=== PATIENT | female | born 1960 | race Two or more races ===

== ENCOUNTER 2020-03-05 09:26 | Outpatient (REF) | payer OTHER, SELFPAY ==
[2020-03-05 10:16] LABS: MANUAL DIFF FLAG NO
[2020-03-05 10:39] LABS: Basophils Percent Auto 0.6 % (0-2); Eosinophils Absolute Auto 0.2 X10*3/uL (0.0-0.4); Eosinophils Percent Auto 3.3 % (0-4); Hematocrit 38.4 % (37-47); Hemoglobin 12.8 g/dl (12.0-16.0); Imm Gran Abs Auto 0.02 X10*3/uL (0.00-0.03); Imm Gran Pct Auto 0.3 % (0.0-0.4); Lymphocytes Absolute Auto 2.4 X10*3/uL (1.2-4.9); Lymphocytes Percent Auto 37.9 % (20-40); Mean Corpuscular HGB Conc 33.3 g/dl (31.0-35.0); Mean Corpuscular Hemoglobin 28.6 pg (27.0-33.0); Mean Corpuscular Volume 85.9 fL (80-98); Mean Platelet Volume 10.8 fL (9.4-12.3); Monocytes Absolute Auto 0.5 X10*3/uL (0.1-1.2); Monocytes Percent Auto 7.1 % (2-11); Neutrophils Absolute Auto 3.2 X10*3/uL (2.0-8.3); Neutrophils Percent Auto 50.8 % (45-73); Platelet Count 241 X10*3/uL (160-400); Red Blood Count 4.47 X10*6/uL (4.20-5.50); Red Cell Distribution Width 11.9 % (11.0-16.0); White Blood Count 6.3 X10*3/uL (4.8-10.8)
[2020-03-05 10:54] LABS: Alanine Aminotransferase 21 U/L (0-31); Albumin Level 4.3 g/dL (3.5-5.0); Alkaline Phosphatase 98 U/L (39-117); Anion Gap 11 (12-20); Aspartate Amino Transferase 15 U/L (5-31); Bilirubin Total 0.5 mg/dL (0.0-1.0); Blood Urea Nitrogen 18 mg/dL (9-16); Calcium 9.3 mg/dL (8.4-10.2); Carbon Dioxide 29 mmol/L (22-29); Chloride 103 mmol/L (96-108); Cholesterol 196 mg/dL; Estimated Glomerular Filt Rate > 60; Glucose Random 212 mg/dL (60-115); HDL Cholesterol 43 mg/dL; LDL Cholesterol Calculated 114 mg/dl; Potassium 4.5 mmol/l (3.3-5.1); Sodium 138 mmol/L (135-145); Total Protein 7.9 g/dL (6.5-8.0); Triglycerides 199 mg/dL
[2020-03-05 11:07] LABS: Creatinine Urine 40.19 mg/dL; Microalbumin Urine < 5.0 mg/L
[2020-03-05 11:19] LABS: Vitamin D 25-OH Total 40.6 ng/mL (>30)
[2020-03-05 11:27] LABS: Folate 10.1 ng/mL (> or = 4.0); Vitamin B12 481 pg/mL (200-900)
== END 2020-03-05 09:27 | disposition home or self-care (01) ==
LOC: HO.LAB 09:26
PROVIDERS: PCP Internal Medicine; Visit Provider Internal Medicine
DX: E78.00 Pure hypercholesterolemia, unspecified (principal); E11.9 Type 2 diabetes mellitus without complications; D51.0 Vitamin B12 deficiency anemia due to intrinsic factor deficiency; E55.9 Vitamin D deficiency, unspecified
CPT/HCPCS: 36415; 80053; 80061; 82043; 82306; 82607; 82746; 85025

== ENCOUNTER 2020-04-15 12:40 | Outpatient (REF) | payer OTHER, SELFPAY | END 2020-04-15 12:41 | disposition home or self-care (01) | LOC: HO.LAB 12:40 | PROVIDERS: Visit Provider Internal Medicine | DX: Z20.828 Contact with and (suspected) exposure to other viral communicable diseases (principal) | CPT/HCPCS: C9803; U0003 ==

== ENCOUNTER 2020-04-25 12:25 | Emergency (ER) | payer OTHER, SELFPAY ==
--- NOTE | 2020-04-25 14:05 | XR_ITS ---
EXAMINATION: XR CHEST CLINICAL INFORMATION: Pain COMPARISON: None TECHNIQUE: Frontal view of the chest was obtained. FINDINGS: Lungs are well expanded. Linear opacity of plate like atelectasis in the inferior lingula. Minimal linear opacity of focal scarring or atelectasis in the region of the right lateral costophrenic sulcus. No pulmonary mass or consolidation. No edema or pleural effusion. No pneumothorax. Cardiac silhouette has normal size and contour. The visualized bones are intact. Small, 0.2 cm focus of calcium deposition in the region of the infraspinatus tendon of the left rotator cuff. XR/XR chest 1V IMPRESSION: * Mild atelectasis at lung bases. * No evidence of congestive heart failure.
--- NOTE | 2020-04-25 14:05 | ECG_ITS ---
Test Reason : CHEST PRESSURE Blood Pressure : / mmHG Vent. Rate : 074 BPM Atrial Rate : 074 BPM P-R Int : 154 ms QRS Dur : 064 ms QT Int : 390 ms P-R-T Axes : 034 058 032 degrees QTc Int : 432 ms Artifact in tracing Normal sinus rhythm Normal ECG No significant changes when compared with the previous EKG of 04 mar 2017 Referred By: Gatito Phipps Electronically Signed By:SLAVA OLIVO
[2020-04-25 14:08] VITALS: BP 136/86; PULSE 92; RESP 18; TEMP 36.7; O2SAT 97; BMI 29.7
--- NOTE | 2020-04-25 14:47 | ED_ITS ---
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 She otherwise denies any chest pain or shortness of breath. Denies any fever or chills. Denies any abdominal pain, nausea vomiting diarrhea. Pain is described as mid to upper back and achy like. Exacerbating factors include movement/palpation relieving factors include resting. MD elicited complaint: back pain Pertinent past history: prior back pain Timing: intermittent Severity: mild Similar Symptoms Previously: Yes Quality: aching Radiation: none Exacerbating factors: movement Relieving factors: immobilization Associated symptoms: denies other symptoms Work related injury: No Related Data Previous Rx's Medication Instructions Recorded lidocaine 1 patch TOPICAL Q24H PRN #10 ea 04/25/20 naproxen 500 mg PO BID PRN #14 tab 04/25/20 Allergies Allergy/AdvReac Type Severity Reaction Status Date / Time No Known Allergies Allergy Unverified 02/01/20 18:44 [No Known Allergies*] Review of Systems Review of Systems: Constitutional: No Weight loss, No Fever, No Chills, No Night Sweats, No Fatigue, No Malaise ENT/Mouth: No Hearing loss, No Ear Pain, No Nasal Congestion, No Sinus Pain, No Hoarseness, No sore throat, No Rhinorrhea, No Swallowing Difficulty Eyes: No Eye Pain, No Swelling, No Redness, No Foreign Body, No Discharge, No Vision Changes Cardiovascular: No Chest Pain, No SOB, No Dyspnea on Exertion, No Orthopnea, No Edema, No Palpitations Respiratory: No Cough, No Sputum, No Wheezing, No Smoke Exposure, No Dyspnea Gastrointestinal: No Nausea, No Vomiting, No Diarrhea, No Constipation, No abdominal Pain, No Hematochezia, No Melena Genitourinary: no irregular bleeding, No Dysuria, No Urinary Frequency, No Hematuria, No Urinary Incontinence, No Urgency, No Flank Pain, No Urinary Flow Changes, No Hesitancy Musculoskeletal: No joint pain, + Myalgias as noted, No Joint Swelling Skin: No Skin Lesions, No rash Neuro: No Weakness, No Numbness, No Paresthesias, No Loss of Consciousness, No Dizziness, No Headache Psych: No Social Issues Heme/Lymph: No Bruising, No Bleeding,No Lymphadenopathy Endocrine: No Polyuria, No Polydipsia, No Temperature Intolerance Yes all other systems are reviewed and are negative FOR[facility]LY [facility] Past Medical History Medical History (Updated 04/25/20 @ 14:48 by Gatito Phipps NP) Diabetes Hypertension Surgical History (Updated 04/25/20 @ 14:13 by Dixie Shaw) H/O tubal ligation H/O: hysterectomy History of appendectomy Social History Social History Alcohol intake: never Smoking Status: Never smoker Use of substances other than those prescribed or required for medical reasons: No Advance Directives: No Advance Directives Information Provided: No Physical Exam Vital Signs: Vital Signs: Last Vital Signs Temp 98.0 F 04/25/20 14:08 Pulse 92 04/25/20 14:08 Resp 18 04/25/20 14:08 BP 136/86 04/25/20 14:08 Pulse Ox 97 04/25/20 14:08 Body Mass Index 29.7 Reviewed Const: General: cooperative and healthy appearing; No acute distress or intoxicated appearing Nutritional Appearance: average body habitus Toni entation/consciousness: patient oriented x3 HENMT: Head: Yes normal to inspection Ears: hearing grossly normal bilaterally Eyes: General: appearance normal, both eyes and all related structures Visual Maloney: normal visual maloney by confrontation Neck: Neck: Yes normal visual inspection, No positive Brudzinski's sign, No positive Kernig's sign and No tender Thyroid: Thyroid normal Chest: Chest palpation & inspection: normal inspection of the chest Resp: Effort & Inspection: normal respiratory effort Cardio: Jugular venous distension: no JVD Rhythm: regular rhythm Heart sounds: S1 normal heart sound present and S2 normal heart sound present GI: Inspection: Yes normal to inspection Palpation (GI): Soft to palpation Percussion: Yes normal to percussion Auscultation: normal bowel sounds : General: Yes no CVA tenderness Back/Spine/Pelvis: Back: no CVA tenderness Cervical Spine: No step off deformity Thoracic/Lumbar Spine: straight leg raise negative bilaterally and paraspinal muscle tenderness Skin: General skin exam: no rashes or lesions noted Neuro: General: patient oriented x3 Extrem: General: Yes normal to inspection MDM - Back Pain/Injury MDM Narrative Medical decision making narrative: AP 5-year-old female with above history presenting with myalgia type pains secondary to COVID-19 exam overall stable. Chest x-ray negative for acute findings. She has no upper respiratory symptoms pain more consistent with again myalgias/musculoskeletal in etiology. No low back pain red flags. No GI symptoms. No chest pain or shortness of breath. He medically stable. Pulse ox 100% on room air heart rate in the 70s suspicious for cardiopulmonary cardiology is very low. I do not suspect ACS/pulmonary embolism/infectious pathology. Differential Diagnosis Differential diagnosis: Likely strain of lumbar region; Unlikely lumbar radiculopathy, sciatica, renal colic, pyelonephritis, thoracic back pain, AAA and discitis Medical Records Attestation: I reviewed the patient's medical records. Lab Data Attestation: I reviewed the patient's lab results. Imaging Data Chest x-ray: Radiologist's impression: Kailey Gomes 59 F 1960 [place] [id number] XRay Report Signed Patient: Nisa GomesR#: [id number] : 1960Acct:[id number] Age/Sex: 59 / FADM Date: 04/25/20 Loc: .ED Attending Dr: Ordering Physician: Gatito Phipps NP Date of Service: 04/25/20 Procedure(s): XR chest 1V Accession Number(s): [id number] cc: Gatito Phipps NP~ EXAMINATION: XR CHEST CLINICAL INFORMATION: Pain COMPARISON: None TECHNIQUE: Frontal view of the chest was obtained. FINDINGS: Lungs are well expanded. Linear opacity of plate like atelectasis in the inferior lingula. Minimal linear opacity of focal scarring or atelectasis in the region of the right lateral costophrenic sulcus. No pulmonary mass or consolidation. No edema or pleural effusion. No pneumothorax. Cardiac silhouette has normal size and contour. The visualized bones are intact. Small, 0.2 cm focus of calcium deposition in the region of the infraspinatus tendon of the left rotator cuff. XR/XR chest 1V IMPRESSION: * Mild atelectasis at lung bases. * No evidence of congestive heart failure. Dictated By:JERED FARRAR MD Signed By:<Electronically signed by JERED FARRAR MD in OV>04/25/20 1427 DD/ 1405 TD/TT: Emergency Planning And Response Manager: ECG Data Interpretation: Normal sinus rhythm Rate 74 P are interval within normal limits No acute ST segment changes Discharge Plan Discharge Clinical Impression: Back pain Qualifiers: Back pain location: thoracic back pain Chronicity: acute Back pain laterality: bilateral Qualified Code(s): M54.6 - Pain in thoracic spine Patient Disposition: Home, Self-Care Instructions: Back Pain (ED) Additional Instructions: Warm compresses Gentle stretching Medication prescribed Return follow-up instructions provided Thank you Prescriptions: New lidocaine 4 % adhesive patch,medicated 1 patch topical Q24H PRN (Reason: pain) Qty: 10 RF: 0 naproxen 500 mg tablet 500 mg PO BID PRN (Reason: pain) Qty: 14 RF: 0 Referrals: Meg Penn MD [Primary Care Provider] - 1 week (As needed)
== END 2020-04-25 15:15 | disposition home or self-care (01) ==
PROVIDERS: Emergency Provider Emergency Medicine; PCP Internal Medicine
DX: M54.6 Pain in thoracic spine (principal); Z20.828 Contact with and (suspected) exposure to other viral communicable diseases; E11.9 Type 2 diabetes mellitus without complications; I10 Essential (primary) hypertension
CPT/HCPCS: 71045; 93005; 99284

== ENCOUNTER → 2020-06-11 10:52 | Outpatient (BNVA) | payer OTHER, SELFPAY | PROVIDERS: PCP Internal Medicine; Visit Provider Internal Medicine Endocrinology, Diabetes & Metabolism | DX: E11.65 Type 2 diabetes mellitus with hyperglycemia (principal); E11.42 Type 2 diabetes mellitus with diabetic polyneuropathy; E78.5 Hyperlipidemia, unspecified; Z79.4 Long term (current) use of insulin; D51.0 Vitamin B12 deficiency anemia due to intrinsic factor deficiency; I10 Essential (primary) hypertension; E55.9 Vitamin D deficiency, unspecified | CPT/HCPCS: 82947; 99212 ==

== ENCOUNTER 2020-07-31 09:40 | Outpatient (REF) | payer OTHER, SELFPAY ==
--- NOTE | ~2020-07-31 | MM_ITS ---
EXAMINATION: MM SCREENING DIGITAL BREAST TOMOSYNTHESIS, BILATERAL CLINICAL INFORMATION: Screening. Asymptomatic. Reduction mammoplasty 2015. Family history breast cancer, sister. Left ultrasound guided core biopsy 04/13/2018 (benign breast tissue with fragments of macrocysts, mild chronic inflammation, ectatic ducts and granular necrotic debris). The lifetime risk of breast cancer based on the Tyrer-Cuzick Model is 15%. COMPARISON: Mammography: 06/19/2019, 11/07/2018, 04/13/2018, 04/05/2018, 10/04/2017, 08/26/2017 TECHNIQUE: Digital breast tomosynthesis is performed in both the craniocaudal and mediolateral oblique views along with computer-aided detection (CAD). Synthesized 2D images are generated from the tomosynthesis. FINDINGS: There are scattered areas of fibroglandular density (ACR BI-RADS breast composition Category b). Parenchymal pattern is similar to prior exam. There is no interval mass or architectural abnormality or developing density. There is biopsy clip marker again noted left breast mid upper outer quadrant. Nodularity in 2018 is decreased. The breasts show no abnormal calcifications. The axilla and skin contours are unremarkable. MM/MM tomosynthesis screening BI IMPRESSION: No mammographic evidence of malignancy. ASSESSMENT: BI-RADS 2: Benign RECOMMENDATION: Routine annual mammography screening. This patient's information was entered into a reminder system with a target due date for their next mammogram.
== END 2020-07-31 09:41 | disposition home or self-care (01) ==
LOC: HO.MAMMO 09:40
PROVIDERS: PCP Internal Medicine; Visit Provider Internal Medicine
DX: Z12.31 Encounter for screening mammogram for malignant neoplasm of breast (principal)
CPT/HCPCS: 77063; 77067

== ENCOUNTER → 2020-09-10 11:20 | Outpatient (BNVA) | payer OTHER, SELFPAY | PROVIDERS: PCP Internal Medicine; Visit Provider Internal Medicine Endocrinology, Diabetes & Metabolism | DX: E11.65 Type 2 diabetes mellitus with hyperglycemia (principal); E11.42 Type 2 diabetes mellitus with diabetic polyneuropathy; Z79.4 Long term (current) use of insulin; E78.5 Hyperlipidemia, unspecified; D51.0 Vitamin B12 deficiency anemia due to intrinsic factor deficiency; I10 Essential (primary) hypertension; E55.9 Vitamin D deficiency, unspecified | CPT/HCPCS: 82947; 99212 ==

== ENCOUNTER 2020-10-03 07:58 | Outpatient (REF) | payer OTHER, SELFPAY ==
[2020-10-03 09:03] LABS: Alanine Aminotransferase 23 U/L (0-31); Albumin Level 4.4 g/dL (3.5-5.0); Alkaline Phosphatase 98 U/L (39-117); Anion Gap 12 (12-20); Aspartate Amino Transferase 14 U/L (5-31); Bilirubin Total 0.6 mg/dL (0.0-1.0); Blood Urea Nitrogen 19 mg/dL (9-16); Calcium 9.7 mg/dL (8.4-10.2); Carbon Dioxide 26 mmol/L (22-29); Chloride 102 mmol/L (96-108); Cholesterol 175 mg/dL; Estimated Glomerular Filt Rate > 60; Glucose Fasting 163 mg/dL (60-99); HDL Cholesterol 35 mg/dL; LDL Cholesterol Calculated 95 mg/dl; Potassium 4.3 mmol/L (3.3-5.1); Sodium 136 mmol/L (135-145); Total Protein 8.1 g/dL (6.5-8.0); Triglycerides 229 mg/dL
[2020-10-03 09:18] LABS: Creatinine Urine 56.17 mg/dL; Microalbumin Urine < 5.0 mg/L
[2020-10-11 14:02] LABS: Vitamin D 25-OH, D2 <4 ng/mL; Vitamin D 25-OH, D3 39 ng/mL; Vitamin D 25-OH, Total 39 ng/mL (30-100)
== END 2020-10-03 07:59 | disposition home or self-care (01) ==
LOC: HO.LAB 07:58
PROVIDERS: PCP Internal Medicine; Visit Provider Internal Medicine
DX: E11.9 Type 2 diabetes mellitus without complications (principal); E78.5 Hyperlipidemia, unspecified; E55.9 Vitamin D deficiency, unspecified
CPT/HCPCS: 36415; 80053; 80061; 82043; 82306

== ENCOUNTER 2020-10-15 07:55 | Outpatient (REF) | payer OTHER, SELFPAY ==
--- NOTE | ~2020-10-15 | FL_ITS ---
EXAMINATION: XR GI SERIES CLINICAL INFORMATION: Gastroesophageal reflux disease COMPARISON: Previous upper GI February 2019 TECHNIQUE: Upper GI was performed using thin and thick barium and effervescent granules. FINDINGS: There is fold thickening of the distal stomach. There is pooling of contrast in the distal body of the stomach questionable for an ulcer or ulcerated mass. The stomach and duodenum are otherwise normal. No significant hernia is seen. There is very mild gastroesophageal reflux. FLUOROSCOPY TIME: 1.7 minutes DOSE AREA PRODUCT: 16 sandoval per centimeter squared. 24 saved fluoroscopic images. FL/FL upper GI series IMPRESSION: Fold thickening of the distal stomach suggestive of gastritis and pooling of contrast questionable for an ulcer or ulcerative mass. Endoscopic correlation recommended. Very mild gastroesophageal reflux seen.
== END 2020-10-15 07:56 | disposition home or self-care (01) ==
LOC: HO.XRAY 07:55
PROVIDERS: PCP Internal Medicine; Visit Provider Internal Medicine
DX: K21.9 Gastro-esophageal reflux disease without esophagitis (principal)
CPT/HCPCS: 74240

== ENCOUNTER 2021-02-04 08:04 | Outpatient (REF) | payer OTHER, SELFPAY ==
[2021-02-04 09:11] LABS: Alanine Aminotransferase 29 U/L (0-31); Albumin Level 4.4 g/dL (3.5-5.0); Alkaline Phosphatase 97 U/L (39-117); Anion Gap 12 (12-20); Aspartate Amino Transferase 17 U/L (5-31); Bilirubin Total 0.7 mg/dL (0.0-1.0); Blood Urea Nitrogen 16 mg/dL (9-16); Calcium 9.8 mg/dL (8.4-10.2); Carbon Dioxide 26 mmol/L (22-29); Chloride 103 mmol/L (96-108); Cholesterol 194 mg/dL; Estimated Glomerular Filt Rate 54; Glucose Fasting 211 mg/dL (60-99); HDL Cholesterol 40 mg/dL; LDL Cholesterol Calculated 107 mg/dl; Potassium 4.2 mmol/L (3.3-5.1); Sodium 137 mmol/L (135-145); Total Protein 8.2 g/dL (6.5-8.0); Triglycerides 239 mg/dL
[2021-02-04 09:38] LABS: Folate 11.3 ng/mL (> or = 4.0); Vitamin B12 780 pg/mL (200-900)
[2021-02-09 12:56] LABS: Vitamin D 25-OH, D2 <4 ng/mL; Vitamin D 25-OH, D3 38 ng/mL; Vitamin D 25-OH, Total 38 ng/mL (30-100)
== END 2021-02-04 08:05 | disposition home or self-care (01) ==
LOC: HO.LAB 08:04
PROVIDERS: PCP Internal Medicine; Visit Provider Internal Medicine
DX: E55.9 Vitamin D deficiency, unspecified (principal); E78.5 Hyperlipidemia, unspecified; D51.0 Vitamin B12 deficiency anemia due to intrinsic factor deficiency; E11.65 Type 2 diabetes mellitus with hyperglycemia
CPT/HCPCS: 36415; 80053; 80061; 82306; 82607; 82746

== ENCOUNTER 2021-02-13 15:09 | Emergency (ER) | payer OTHER, SELFPAY ==
[2021-02-13 15:46] VITALS: BP 142/76; PULSE 88; RESP 18; TEMP 36.7; O2SAT 99; BMI 25.2
[2021-02-13 16:08] LABS: Appearance Urine CLEAR; Color Urine YELLOW; Glucose Urine UA >=1000 MG/DL (NEG); Leukocyte Esterase Urine NEG (NEG); Nitrite Urine NEG (NEG); Urine Blood NEG (NEG); Urine Ketones NEG (NEG); Urine Protein NEG (NEG-TRACE)
[2021-02-13 16:18] LABS: Bacteria Urine TRACE /LPF; RBC Urine 0-2 /HPF (0); Squamous Epithelial Cell Urine TRACE /LPF; WBC Urine 0-2 /HPF (0-4)
[2021-02-13 20:16] LABS: MANUAL DIFF FLAG NO
[2021-02-13 20:20] LABS: Basophils Percent Auto 0.4 % (0-2); Eosinophils Absolute Auto 0.1 X10*3/uL (0.0-0.4); Eosinophils Percent Auto 1.4 % (0-4); Hematocrit 41.3 % (37-47); Hemoglobin 14.1 g/dl (12.0-16.0); Imm Gran Abs Auto 0.01 X10*3/uL (0.00-0.03); Imm Gran Pct Auto 0.1 % (0.0-0.4); Lymphocytes Absolute Auto 3.2 X10*3/uL (1.2-4.9); Lymphocytes Percent Auto 40.5 % (20-40); Mean Corpuscular HGB Conc 34.1 g/dl (31.0-35.0); Mean Corpuscular Hemoglobin 28.8 pg (27.0-33.0); Mean Corpuscular Volume 84.5 fL (80-98); Mean Platelet Volume 10.6 fL (9.4-12.3); Monocytes Absolute Auto 0.5 X10*3/uL (0.1-1.2); Monocytes Percent Auto 6.8 % (2-11); Neutrophils Absolute Auto 3.9 X10*3/uL (2.0-8.3); Neutrophils Percent Auto 50.8 % (45-73); Platelet Count 245 X10*3/uL (160-400); Red Blood Count 4.89 X10*6/uL (4.20-5.50); Red Cell Distribution Width 12.1 % (11.0-16.0); White Blood Count 7.8 X10*3/uL (4.8-10.8)
[2021-02-13 20:36] LABS: Alanine Aminotransferase 30 U/L (0-31); Albumin Level 4.8 g/dL (3.5-5.0); Alkaline Phosphatase 112 U/L (39-117); Anion Gap 15 (12-20); Aspartate Amino Transferase 21 U/L (5-31); Bilirubin Total 0.8 mg/dL (0.0-1.0); Blood Urea Nitrogen 20 mg/dL (9-16); Calcium 10.7 mg/dL (8.4-10.2); Carbon Dioxide 28 mmol/L (22-29); Chloride 97 mmol/L (96-108); Creatinine Clr Calc Pharmacy 54.9; Estimated Glomerular Filt Rate 49; Glucose Random 209 mg/dL (60-115); Lipase 35 U/L (8-78); Potassium 3.8 mmol/L (3.3-5.1); Sodium 136 mmol/L (135-145)
[2021-02-13 23:50] VITALS: BP 118/68; PULSE 82; RESP 14; O2SAT 98
--- NOTE | 2021-02-14 00:01 | PC.NURSE ---
pt resting on stretcher, iv established and 1 l ns infused. pt awaiting provider evaluation.
[2021-02-14 00:49] LABS: C Reactive Protein 0.49 mg/dL (< or = 0.50)
--- NOTE | 2021-02-14 00:51 | PC.NURSE ---
PT REPORTS NAUSEA IS NOW GONE, GIVEN WATER FOR P.O. CHALLENGE. PT SEATED FULLY UPRIGHT, ON PHONE. WHEM ASKED ABOUT ABDOMINAL PAIN, PT REPLIED JUST A LITTLE.
[2021-02-14 01:11] LABS: Thyroid Stimulating Hormone 2.39 uIU/mL (0.32-4.0)
[2021-02-14 01:18] LABS: Erythrocyte Sedimentation Rate 23 MM/HR (0-20)
--- NOTE | 2021-02-14 01:36 | ED.GENADULT ---
HPI - General Adult General Chief complaint: Abdominal Pain Stated complaint: discolor skin abd pain vomiting Time Seen by Provider: 02/13/21 23:46 Source: patient and oral and maxillofacial surgery resident Mode of arrival: ambulatory History of Present Illness HPI narrative: A 60-year-old female with history of diabetes, pernicious anemia, hypertension who presents with mild nausea, vomiting, diarrhea with abdominal discomfort since Wednesday without associated fever, chills, sore throat, shortness of breath, chest pain/palpitations, urinary pain/burning/frequency. Patient also describes that she noted skin discoloration that had affected her bilateral palms and denies any exposure to chemicals, dyes, stains, exposure to sun, itching, but states that the discoloration was orangish/yellow in nature and did not affect any other extremities or areas of her body and denies any color change within her eyes. She denies any recent medication uses. Patient states that currently the discoloration of her palms has somewhat subsided but now is present on bilateral forearms. Patient denies unintentional weight loss and states that she has been able to tolerate her meals. She denies any association of the skin discoloration with sun exposure. Related Data Home Medications Medication Instructions Recorded Confirmed blood sugar diagnostic #10 ea 06/11/20 02/10/21 Previous Rx's Medication Instructions Recorded lidocaine 4 % topical patch 1 patch TOPICAL Q24H PRN #10 ea 04/25/20 naproxen 500 mg tablet 500 mg PO BID PRN #14 tab 04/25/20 repaglinide 1 mg tablet (Prandin) 1 mg PO DAILY 90 Days #90 tab 06/11/20 atorvastatin 80 mg tablet 80 mg PO BEDTIME 90 Days #90 tab 09/10/20 canagliflozin 50 mg-metformin ER 2 tab PO DAILY 30 Days #60 ea 09/10/20 500 mg tablet,extended release 24 hr (Invokamet XR) cholecalciferol (vitamin D3) 25 25 mcg PO DAILY 30 Days #30 cap 09/10/20 mcg (1,000 unit) capsule cyanocobalamin (vitamin B-12) 1,000 mcg SUBLINGUAL DAILY 30 Days 09/10/20 1,000 mcg sublingual tablet #30 tab dulaglutide 1.5 mg/0.5 mL 1.5 mg SUBCUT QWEEK 90 Days #6.5 ml 09/10/20 subcutaneous pen injector (Trulicity) ezetimibe 10 mg tablet 10 mg PO DAILY 90 Days #90 tab 09/10/20 flash glucose sensor (FreeStyle #2 ea 09/10/20 Eliezer 14 Day Sensor) pen needle, diabetic 32 gauge x #100 ea 09/10/20 insulin glargine U-300 conc 300 38 unit SUBCUT QAM 90 Days #11.403 10/08/20 unit/mL (1.5 mL) subcutaneous pen ml omeprazole 20 mg capsule,delayed 20 mg PO DAILY 90 Days #90 cap 10/08/20 release lancets 33 gauge #100 ea 12/18/20 flash glucose scanning reader #1 ea 12/19/20 (FreeStyle Eliezer 2 [place]) flash glucose sensor (FreeStyle #2 ea 12/19/20 Eliezer 2 Sensor) lisinopril 5 mg tablet 5 mg PO DAILY 90 Days #90 tab 02/10/21 Allergies Allergy/AdvReac Type Severity Reaction Status Date / Time No Known Allergies Allergy Verified 02/13/21 15:46 [No Known Allergies*] Review of Systems Review of Systems: Pertinent positives and negatives as stated in HPI 10 point review of systems is otherwise negative. 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 Mother No problems noted. 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 GENERAL: Well developed, well nourished, in no acute distress. HEAD: Normocephalic/atraumatic, EYES: PERRLA, EOMI intact without pain, no icterus noted OROPHARYNX: no oral lesions noted, posterior pharynx clear NECK: Supple, no adenopathy LUNGS: Normal breath sounds. No adventitious sounds or accessory muscle use. SpO2<98> CARDIOVASCULAR: Regular rate and rhythm without noted murmurs ABDOMEN: Soft, mild epigastric tenderness,, non-distended with bowel sounds. MUSCULOSKELETAL: No tenderness, deformities, or effusions noted on gross inspection. EXTREMITIES: No cyanosis, clubbing or edema. SKIN: Inspection of the skin reveals darkening of skin to dorsal aspect of forearms as well as ulnar aspect of ventral wrists, no jaundice NEUROLOGIC: Alert and oriented x 4. Strength and sensation to light touch were grossly intact x 4. Course Course Course Narrative: 60-year-old female with history and clinical presentation consistent with skin color changes of unknown etiology, but will evaluate for evidence to suggest porphyria, history and review of lab work in consistent with adrenal insufficiency. Review of all investigations to include additional evaluation for TSH, ESR, CRP there is a noted mild elevation of the ESR and all results and findings were discussed with the patient at bedside with a grief counsellor and she was strongly encouraged to follow-up with her primary care provider for further outpatient workup and management. She otherwise was able to tolerate oral intake during her stay here without difficulty. Medical Decision Making Lab Data Result diagrams: 02/13/21 20:11 02/13/21 20:11 Labs: Lab Results 02/13/21 02/13/21 02/13/21 Range/Units 15:58 20:11 20:11 WBC 7.8 (4.8-10.8) X10*3/uL RBC 4.89 (4.20-5.50) X10*6/uL Hgb 14.1 (12.0-16.0) g/dl Hct 41.3 (37-47) % MCV 84.5 (80-98) fL MCH 28.8 (27.0-33.0) pg MCHC 34.1 (31.0-35.0) g/dl RDW 12.1 (11.0-16.0) % Plt Count 245 (160-400) X10*3/uL MPV 10.6 (9.4-12.3) fL Immature Gran % (Auto) 0.1 (0.0-0.4) % Neut % (Auto) 50.8 (45-73) % Lymph % (Auto) 40.5 H (20-40) % Mclennan % (Auto) 6.8 (2-11) % Eos % (Auto) 1.4 (0-4) % Baso % (Auto) 0.4 (0-2) % Lymph # (Auto) 3.2 (1.2-4.9) X10*3/uL Mclennan # (Auto) 0.5 (0.1-1.2) X10*3/uL Eos # (Auto) 0.1 (0.0-0.4) X10*3/uL Baso # (Auto) 0.0 (0.0-0.2) X10*3/uL Abs Immat Gran (auto) 0.01 (0.00-0.03) X10*3/uL Absolute Neuts (auto) 3.9 (2.0-8.3) X10*3/uL Absolute Nucleated RBC 0.000 (0.0-0.012) X10*3/uL Nucleated RBC % (auto) 0.0 (0.0-0.2) /100WBC ESR (0-20) MM/HR Sodium 136 (135-145) mmol/L Potassium 3.8 (3.3-5.1) mmol/L Chloride 97 (96-108) mmol/L Carbon Dioxide 28 (22-29) mmol/L Anion Gap 15 (12-20) BUN 20 H (9-16) mg/dL Creatinine 1.13 (0.5-1.4) mg/dL Estim Creat Clear Calc 54.9 Estimated GFR 49 Random Glucose 209 H (60-115) mg/dL Calcium 10.7 H D (8.4-10.2) mg/dL Total Bilirubin 0.8 (0.0-1.0) mg/dL AST 21 (5-31) U/L ALT 30 (0-31) U/L Alkaline Phosphatase 112 (39-117) U/L C-Reactive Protein 0.49 (< or = 0.50) mg/dL Total Protein 9.0 H (6.5-8.0) g/dL Albumin 4.8 (3.5-5.0) g/dL Lipase 35 (8-78) U/L TSH 2.39 (0.32-4.0) uIU/mL Urine Color YELLOW Urine Appearance CLEAR Urine pH 6.0 (5.0-8.0) Ur Specific [place] 1.010 (1.005-1.025) Urine Protein NEG (NEG-TRACE) MG/DL Urine Glucose (UA) >=1000 H (NEG) MG/DL Urine Ketones NEG (NEG) MG/DL Urine Blood NEG (NEG) Urine Nitrite NEG (NEG) Ur Leukocyte Esterase NEG (NEG) Urine RBC 0-2 (0) /HPF Urine WBC 0-2 (0-4) /HPF Ur Squamous Epith Cells TRACE /LPF Urine Bacteria TRACE /LPF 02/14/21 Range/Units 20:11 WBC (4.8-10.8) X10*3/uL RBC (4.20-5.50) X10*6/uL Hgb (12.0-16.0) g/dl Hct (37-47) % MCV (80-98) fL MCH (27.0-33.0) pg MCHC (31.0-35.0) g/dl RDW (11.0-16.0) % Plt Count (160-400) X10*3/uL MPV (9.4-12.3) fL Immature Gran % (Auto) (0.0-0.4) % Neut % (Auto) (45-73) % Lymph % (Auto) (20-40) % Mclennan % (Auto) (2-11) % Eos % (Auto) (0-4) % Baso % (Auto) (0-2) % Lymph # (Auto) (1.2-4.9) X10*3/uL Mclennan # (Auto) (0.1-1.2) X10*3/uL Eos # (Auto) (0.0-0.4) X10*3/uL Baso # (Auto) (0.0-0.2) X10*3/uL Abs Immat Gran (auto) (0.00-0.03) X10*3/uL Absolute Neuts (auto) (2.0-8.3) X10*3/uL Absolute Nucleated RBC (0.0-0.012) X10*3/uL Nucleated RBC % (auto) (0.0-0.2) /100WBC ESR 23 H (0-20) MM/HR Sodium (135-145) mmol/L Potassium (3.3-5.1) mmol/L Chloride (96-108) mmol/L Carbon Dioxide (22-29) mmol/L Anion Gap (12-20) BUN (9-16) mg/dL Creatinine (0.5-1.4) mg/dL Estim Creat Clear Calc Estimated GFR Random Glucose (60-115) mg/dL Calcium (8.4-10.2) mg/dL Total Bilirubin (0.0-1.0) mg/dL AST (5-31) U/L ALT (0-31) U/L Alkaline Phosphatase (39-117) U/L C-Reactive Protein (< or = 0.50) mg/dL Total Protein (6.5-8.0) g/dL Albumin (3.5-5.0) g/dL Lipase (8-78) U/L TSH (0.32-4.0) uIU/mL Urine Color Urine Appearance Urine pH (5.0-8.0) Ur Specific [place] (1.005-1.025) Urine Protein (NEG-TRACE) MG/DL Urine Glucose (UA) (NEG) MG/DL Urine Ketones (NEG) MG/DL Urine Blood (NEG) Urine Nitrite (NEG) Ur Leukocyte Esterase (NEG) Urine RBC (0) /HPF Urine WBC (0-4) /HPF Ur Squamous Epith Cells /LPF Urine Bacteria /LPF Discharge Plan Discharge Clinical Impression: Discoloration of skin Patient Disposition: Home, Self-Care Instructions: Diabetes and Your Skin (ED) Additional Instructions: 1. Reanude todos los medicamentos caseros seg?n lo prescrito. 2. Jian un seguimiento con knight proveedor de atenci?n primaria por la ma?meg para establecer cindy visita de seguimiento. Regrese a la celeste de emergencias por cualquier empeoramiento claire de los s?ntomas. Prescriptions: No Action (DME) lancets 33 gauge misc See Rx Instructions ea Not Applicable QID Qty: 100 RF: 10 (DME) FreeStyle Eliezer 2 [place] Misc See Rx Instructions .ROUTE .MEDSUPPLY Qty: 1 RF: 0 (DME) FreeStyle Eliezer 2 Sensor Kit See Rx Instructions .ROUTE .MEDSUPPLY Qty: 2 RF: 6 lisinopril 5 mg tablet 5 mg PO DAILY 90 Days Qty: 90 RF: 1 lidocaine 4 % adhesive patch,medicated 1 patch topical Q24H PRN (Reason: pain) Qty: 10 RF: 0 naproxen 500 mg tablet 500 mg PO BID PRN (Reason: pain) Qty: 14 RF: 0 omeprazole 20 mg capsule,delayed release(DR/EC) 20 mg PO DAILY 90 Days Qty: 90 RF: 1 insulin glargine U-300 conc 300 unit/mL (1.5 mL) insulin pen 38 unit subcut QAM 90 Days Qty: 11.403 RF: 2 (DME) FreeStyle Precision Jarod Strips Strip See Rx Instructions ea .ROUTE DIRECTED Qty: 10 RF: 0 repaglinide [Prandin] 1 mg tablet 1 mg PO DAILY 90 Days Qty: 90 RF: 1 atorvastatin 80 mg tablet 80 mg PO BEDTIME 90 Days Qty: 90 RF: 1 (DME) FreeStyle Eliezer 14 Day Sensor Kit See Rx Instructions .MEDSUPPLY Qty: 2 RF: 11 cholecalciferol (vitamin D3) 25 mcg (1,000 unit) capsule 25 mcg PO DAILY 30 Days Qty: 30 RF: 6 cyanocobalamin (vitamin B-12) 1,000 mcg tablet, sublingual 1,000 mcg sublingual DAILY 30 Days Qty: 30 RF: 6 Invokamet XR 50-500 mg tablet, IR - ER, biphasic 24hr 2 tab PO DAILY 30 Days Qty: 60 RF: 6 Trulicity 1.5 mg/0.5 mL pen injector 1.5 mg subcut QWEEK 90 Days Qty: 6.5 RF: 6 ezetimibe 10 mg tablet 10 mg PO DAILY 90 Days Qty: 90 RF: 1 (DME) pen needle, diabetic 32 gauge x 5/32 needle See Rx Instructions ea .ROUTE DIRECTED Qty: 100 RF: 3 Referrals: Meg Penn MD [Primary Care Provider] - 2 days (Patient with reported skin discoloration to her bilateral forearms, workup otherwise negative except for mildly elevated ESR. Low clinical suspicion for adrenal insufficiency at this time and no evidence to suggest a porphyria.) Print Language: Uzbek
[2021-02-14 02:54] VITALS: BP 128/72; PULSE 74; RESP 16; O2SAT 97
== END 2021-02-14 03:10 | disposition home or self-care (01) ==
PROVIDERS: Emergency Provider Student in an Organized Health Care Education/Training Program; PCP Internal Medicine
DX: L98.9 Disorder of the skin and subcutaneous tissue, unspecified (principal); Z79.899 Other long term (current) drug therapy
CPT/HCPCS: 36415; 80053; 81001; 83690; 84443; 85025; 85652; 86140; 99283; 99284

== ENCOUNTER 2021-02-20 08:03 | Outpatient (REF) | payer OTHER, SELFPAY ==
--- NOTE | ~2021-02-20 | XR_ITS ---
EXAMINATION: XR ELBOW, RIGHT CLINICAL INFORMATION: M25.521 - Pain in right elbow COMPARISON: None TECHNIQUE: Right elbow is imaged in 3 views. FINDINGS: There is no fracture or dislocation or elbow capsular effusion. Bony mineralization is normal. The articular surfaces appear intact. There are no erosive changes. There is spurring from both the medial and lateral epicondyle and a tiny olecranon spur. XR/XR elbow RT min 3V IMPRESSION: Spurring medial and lateral epicondyles and tiny olecranon spur.
== END 2021-02-20 08:04 | disposition home or self-care (01) ==
LOC: HO.XRAY 08:03
PROVIDERS: PCP Internal Medicine; Visit Provider Internal Medicine
DX: M25.521 Pain in right elbow (principal)
CPT/HCPCS: 73080

== ENCOUNTER → 2021-04-08 12:17 | Outpatient (BNVA) | payer OTHER, SELFPAY | PROVIDERS: PCP Internal Medicine; Visit Provider Nurse Practitioner Gerontology | DX: E11.65 Type 2 diabetes mellitus with hyperglycemia (principal); E11.42 Type 2 diabetes mellitus with diabetic polyneuropathy; E78.5 Hyperlipidemia, unspecified; I10 Essential (primary) hypertension; D51.0 Vitamin B12 deficiency anemia due to intrinsic factor deficiency; E55.9 Vitamin D deficiency, unspecified; Z79.4 Long term (current) use of insulin | CPT/HCPCS: 82947; 99212 ==

== ENCOUNTER 2021-04-22 14:59 | Outpatient (REF) | payer OTHER, SELFPAY | END 2021-04-22 15:00 | disposition home or self-care (01) | LOC: CF 14:59 | PROVIDERS: PCP Internal Medicine; Visit Provider Nurse Practitioner Family | DX: K21.9 Gastro-esophageal reflux disease without esophagitis (principal); K59.00 Constipation, unspecified; R14.0 Abdominal distension (gaseous); E11.65 Type 2 diabetes mellitus with hyperglycemia; E11.42 Type 2 diabetes mellitus with diabetic polyneuropathy; I10 Essential (primary) hypertension; E78.5 Hyperlipidemia, unspecified; E55.9 Vitamin D deficiency, unspecified; D51.0 Vitamin B12 deficiency anemia due to intrinsic factor deficiency; Z79.4 Long term (current) use of insulin | CPT/HCPCS: 99202 ==

== ENCOUNTER 2021-04-23 08:43 | Outpatient (REF) | payer OTHER, SELFPAY | END 2021-04-23 08:44 | disposition home or self-care (01) | LOC: HO.LNP 08:43 | PROVIDERS: Visit Provider Internal Medicine | DX: K21.9 Gastro-esophageal reflux disease without esophagitis (principal) | CPT/HCPCS: 87338 ==

== ENCOUNTER → 2021-07-18 10:08 | Outpatient (BNVA) | payer OTHER, SELFPAY | PROVIDERS: PCP Internal Medicine; Visit Provider Physician Assistant | DX: M77.11 Lateral epicondylitis, right elbow (principal) | CPT/HCPCS: 20550; 99202; J1020 ==

== ENCOUNTER → 2021-07-23 14:19 | Outpatient (BNVA) | payer OTHER, SELFPAY | PROVIDERS: PCP Internal Medicine; Visit Provider Nurse Practitioner Gerontology | DX: E11.65 Type 2 diabetes mellitus with hyperglycemia (principal); E78.5 Hyperlipidemia, unspecified; E55.9 Vitamin D deficiency, unspecified; I10 Essential (primary) hypertension; D51.0 Vitamin B12 deficiency anemia due to intrinsic factor deficiency; Z79.4 Long term (current) use of insulin | CPT/HCPCS: 82947; 83036 ==

== ENCOUNTER 2021-08-01 13:51 | Outpatient (REF) | payer OTHER, SELFPAY ==
--- NOTE | ~2021-08-01 | MM_ITS ---
EXAMINATION: MM SCREENING DIGITAL BREAST TOMOSYNTHESIS, BILATERAL CLINICAL INFORMATION: Screening. Asymptomatic. Ultrasound biopsy 2018. Bilateral breast reduction surgery in 2015 The lifetime risk of breast cancer based on the Tyrer-Cuzick Model is 10.0%. COMPARISON: Mammography: September 30, 2020 and studies dating back to January 09, 2014 TECHNIQUE: Digital breast tomosynthesis is performed in both the craniocaudal and mediolateral oblique views along with computer-aided detection (CAD). Synthesized 2D images are generated from the tomosynthesis. FINDINGS: The breasts are almost entirely fatty (ACR BI-RADS breast composition Category a). There are no significant masses, abnormal calcifications, or other abnormalities. MM/MM tomosynthesis screening BI IMPRESSION: There are no significant changes from prior study. ASSESSMENT: BI-RADS 1: Negative RECOMMENDATION: Routine annual mammography screening. This patient's information was entered into a reminder system with a target due date for their next mammogram.
== END 2021-08-01 13:52 | disposition home or self-care (01) ==
LOC: HO.MAMMO 13:51
PROVIDERS: Visit Provider Internal Medicine
DX: Z12.31 Encounter for screening mammogram for malignant neoplasm of breast (principal)
CPT/HCPCS: 77063; 77067

== ENCOUNTER 2021-08-07 13:43 | Outpatient (REF) | payer OTHER, SELFPAY ==
--- NOTE | ~2021-08-07 | XR_ITS ---
EXAMINATION: XR LUMBOSACRAL SPINE WITH OBLIQUES CLINICAL INFORMATION: 4 cm COMPARISON: None TECHNIQUE: AP, both oblique, and lateral views of the lumbar spine. Lateral view of the lumbosacral junction. FINDINGS: No acute fracture or traumatic malalignment. Vertebral body heights maintained. Endplate osteophytes present throughout the lumbar spine. Mild loss of disc space height at L4-5. Mild facet arthropathy L4-5 and L5-S1. Mild bilateral sacroiliac arthrosis, worse on the right. Paraspinal soft tissues unremarkable XR/XR lumbar spine 4V min IMPRESSION: No acute findings. Lumbar spondylosis as described.
== END 2021-08-07 13:44 | disposition home or self-care (01) ==
LOC: HO.XRAY 13:43
PROVIDERS: PCP Internal Medicine; Visit Provider Nurse Practitioner Family
DX: M54.9 Dorsalgia, unspecified (principal)
CPT/HCPCS: 72110

== ENCOUNTER → 2021-10-06 09:35 | Outpatient (BNVA) | payer OTHER, SELFPAY | PROVIDERS: PCP Internal Medicine; Referring Provider Internal Medicine; Visit Provider Nurse Practitioner Family | DX: K21.9 Gastro-esophageal reflux disease without esophagitis (principal); K59.01 Slow transit constipation | CPT/HCPCS: 99212 ==

== ENCOUNTER 2021-10-11 13:37 | Emergency (ER) | payer OTHER, SELFPAY ==
--- NOTE | 2021-10-11 14:37 | PC.NURSE ---
called x 2 to triage. no answer
[2021-10-11 14:53] VITALS: BP 130/72; PULSE 100; RESP 18; TEMP 36.8; O2SAT 99; BMI 26.2
[2021-10-11 17:58] VITALS: BP 133/76; PULSE 89; RESP 20; TEMP 37; O2SAT 97
--- NOTE | 2021-10-11 18:13 | ED_ITS ---
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 Patient states that she has left sided back pain that radiates down her left leg. Patient denies any dizziness, lightheadedness, abdominal pain, nausea, vomiting, fever, chills, blurry vision, double vision, loss of vision, chest pain, difficulty breathing, shortness of breath, night sweats, pain with urination, increased urinary frequency, increased urinary urgency, blood in her urine or stool, syncope or a near syncopal episode, recent trauma or falls, bowel incontinence, bladder incontinence, bowel retention, bladder retention, or any other complaints at this time. Onset (ago): day(s) Location: back Radiation: extremity Severity: mild Severity scale (1-10): 4 Quality: sharp Pain Consistency: intermittent Relieving factors: none Exacerbating factors: none Associated symptoms: denies other symptoms Treatments prior to arrival: none Related Data Previous Rx's Medication Instructions Recorded flash glucose sensor (FreeStyle #2 ea 09/10/20 Eliezer 14 Day Sensor) pen needle, diabetic 32 gauge x #100 ea 09/10/20 lancets 33 gauge #100 ea 12/18/20 flash glucose sensor (FreeStyle #2 ea 12/19/20 Eliezer 2 Sensor) blood sugar diagnostic (FreeStyle #100 ea 04/08/21 Precision Jarod Strips) flash glucose scanning reader #1 ea 04/08/21 (FreeStyle Eliezer 2 Quimby) cholecalciferol (vitamin D3) 25 25 mcg PO DAILY 30 Days #30 cap 04/21/21 mcg (1,000 unit) capsule cyanocobalamin (vitamin B-12) 1,000 mcg SUBLINGUAL DAILY 30 Days 04/21/21 1,000 mcg sublingual tablet #30 tab methylcellulose (laxative) 500 mg 500 mg PO DAILY #30 tab 04/22/21 tablet (Citrucel) blood sugar diagnostic (FreeStyle #100 ea 04/23/21 Lite Strips) blood-glucose meter (FreeStyle #1 ea 04/23/21 Penelope Lite) canagliflozin 50 mg-metformin ER 2 tab PO DAILY 30 Days #60 ea 04/23/21 500 mg tablet,extended release 24 hr (Invokamet XR) lancets 28 gauge (FreeStyle #100 ea 04/23/21 Lancets) atorvastatin 80 mg tablet 80 mg PO BEDTIME 90 Days #90 tab 05/12/21 ezetimibe 10 mg tablet 10 mg PO DAILY 90 Days #90 tab 05/12/21 dulaglutide 4.5 mg/0.5 mL 4.5 mg (0.5 mL) SUBCUT QWEEK #2 ml 07/23/21 subcutaneous pen injector (Trulicity) insulin glargine U-300 conc 300 44 unit (0.1467 mL) SUBCUT QAM 07/23/21 unit/mL (1.5 mL) subcutaneous pen #4.5 ml lisinopril 5 mg tablet 5 mg PO DAILY 90 Days #90 tab 08/15/21 ibuprofen 600 mg tablet 600 mg PO Q8H PRN #14 tab 09/17/21 tizanidine 2 mg tablet 2 mg PO Q12H PRN #14 tab 09/17/21 docusate sodium 100 mg capsule 100 mg PO BEDTIME #30 cap 10/06/21 pantoprazole 40 mg tablet,delayed 40 mg PO DAILY #30 tab 10/06/21 release sennosides 8.6 mg tablet (Natural 8.6 mg PO BEDTIME #90 tab 10/06/21 Senna Laxative) simethicone 180 mg capsule (Gas 180 mg PO BID PRN #60 ea 10/06/21 Relief (simethicone)) cyclobenzaprine 10 mg tablet 10 mg PO TID PRN 7 Days #21 tab 10/11/21 Allergies Allergy/AdvReac Type Severity Reaction Status Date / Time No Known Allergies Allergy Verified 10/06/21 09:50 [No Known Allergies*] Review of Systems Constitutional: Constitutional: Reports no additional constitutional complaints, Denies chills, Denies fever(s) and Denies night sweats Eyes: Eyes: Reports no additional eye complaints, Denies blurry vision, Denies change in vision, Denies diplopia, Denies eye discharge, Denies loss of vision and Denies eye pain ENT: Denies dizziness Cardiovascular: Cardiovascular: Reports no additional cardiovascular complaints, Denies chest pain, Denies lightheadedness, Denies Loss of Consciousness and Denies dyspnea Respiratory: Respiratory: Reports no additional respiratory complaints and Denies dyspnea Gastrointestinal: Gastrointestinal: Reports no additional gastrointestinal complaints, Denies abdominal pain, Denies melena, Denies hematochezia, Denies change in bowel habits and Denies change in stool character Genitourinary: Genitourinary: Denies hematuria, Denies urinary frequency, Denies dysuria, Denies urinary incontinence, Denies urinary hesitancy and Denies urinary urgency Musculoskeletal: Musculoskeletal: Reports no additional musculoskeletal complaints, Reports back pain, Denies numbness and Denies tingling Neurologic: Denies dizziness, Denies loss of vision, Denies numbness and Denies tingling Psychiatric: Psychiatric: Reports no additional psychiatric complaints Endocrine: Endocrine: Reports no additional endocrine complaints Hematologic/Lymphatic: Hematologic/Lymphatic: Reports no additional hematologic/lymphatic complaints Allergic/Immunologic: Allergic/Immunologic: Reports no additional allergic/immunologic complaints PMFSH Past Medical History Attestation statement: The following information was validated with the patient. 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 Mother No problems noted. 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 Physical Exam ED Vital Signs: Vital Signs - 24 hr 10/11/21 14:53 10/11/21 17:58 Temperature 98.2 F 98.6 F Pulse Rate 100 89 Respiratory Rate 18 20 Blood Pressure 130/72 133/76 Pulse Oximetry 99 97 BMI result Body Mass Index 26.2 Const General: cooperative, no acute distress, alert and awake Nutritional Appearance: well nourished Orientation/consciousness: patient oriented x3 Limitations: no limitations HENMT Head: Yes normal to inspection and Yes atraumatic Ears: hearing grossly normal bilaterally and external ears normal General nose exam: Normal external nose present, no nasal discharge noted and no epistaxis Face and sinus: Yes normal facial exam, No abrasion and No laceration Mouth: Normal oral and palatal mucosa present, no drooling and no muffled voice Eyes General: appearance normal, both eyes and all related structures Periorbital: periorbital findings normal Eyelids: Yes eyelids normal Conjunctivae: conjunctivae normal Pupils: Equal, round and reactive pupils present EOM: EOMs intact bilaterally Neck Neck: Yes normal visual inspection, Yes full ROM and Yes no lymphadenopathy Chest Chest palpation & inspection: normal inspection of the chest Resp Effort & Inspection: normal respiratory effort and able to speak in complete sentences Auscultation: clear to auscultation bilaterally Cardio Rate: regular rate Rhythm: regular rhythm GI Inspection: Yes normal to inspection General: Yes no CVA tenderness Back/Spine/Pelvis Back: no CVA tenderness Cervical Spine: normal cervical lordosis Thoracic/Lumbar Spine: thoracic and lumbar spine normal to inspection and thoraco-lumbar ROM normal Neuro General: patient oriented x3 and moves all extremities Cranial nerves: Yes Equal, round and reactive pupils present Cognition (Neuro): normal cognition Motor exam (neuro): 5/5 motor strength present throughout Sensory Exam: Normal double simultaneous stimulation for sensation Coordination: [id number] test normal Extrem General: Yes normal to inspection, Yes full ROM and Yes capillary refill normal Psych Appearance: grossly normal Mental Status: mental status grossly normal Affect: normal affect Attitude: cooperative Thought process: Normal thought process present Thought content: Normal thought content present Insight: Good insight present (Psych) Medical Decision Making MDM Narrative Medical decision making narrative: Patient is a 61 year old female presenting to the emergency department today with back pain. Patient's physical exam was unremarkable. I explained my physical exam findings to the patient. I answered all questions asked by the patient. Patient received IM Toradol and PO Flexeril which she stated helped her symptoms significantly. I stressed the importance of the patient taking her medication as prescribed. I stressed the importance of the patient following up with her primary care provider. I stressed the importance of the patient returning to the emergency department immediately if her symptoms were to worsen or if she were to develop any dizziness, shortness of breath, difficulty breathing, chest pain, blurry vision, loss of vision, nausea, vomiting, abdominal pain, fever, chills, back pain, or any other complaints. Patient verbalized agreement and understanding with this treatment plan and discharge. Differential Diagnosis Differential Diagnosis: sciatic back pain, low back pain Medical Records Medical records reviewed: Yes I reviewed the patient's medical records. Discharge Plan Discharge Clinical Impression: Sciatica Patient Disposition: Home, Self-Care Instructions: Sciatica (ED) Additional Instructions: Follow up with your primary care provider. Return to the emergency department immediately if your symptoms worsen or if you develop any dizziness, shortness of breath, difficulty breathing, chest pain, blurry vision, loss of vision, nausea, vomiting, abdominal pain, fever, chills, back pain, or any other complaints. Prescriptions: New cyclobenzaprine 10 mg tablet 10 mg PO TID PRN (Reason: muscle spasm) 7 Days Qty: 21 0RF No Action (DME) lancets 33 gauge misc See Rx Instructions ea Not Applicable QID Qty: 100 10RF Rx Instructions: As directed daily (DME) FreeStyle Eliezer 2 Sensor Kit See Rx Instructions .ROUTE .MEDSUPPLY Qty: 2 6RF Rx Instructions: As directed every 2 weeks (DME) FreeStyle Eliezer 2 Quimby Misc See Rx Instructions .ROUTE .MEDSUPPLY Qty: 1 0RF Rx Instructions: As directed cholecalciferol (vitamin D3) 25 mcg (1,000 unit) capsule 25 mcg PO DAILY 30 Days Qty: 30 6RF cyanocobalamin (vitamin B-12) 1,000 mcg tablet, sublingual 1,000 mcg sublingual DAILY 30 Days Qty: 30 6RF Invokamet XR 50-500 mg tablet, IR - ER, biphasic 24hr 2 tab PO DAILY 30 Days Qty: 60 6RF (DME) blood-glucose meter [FreeStyle Penelope Lite] Kit See Rx Instructions .ROUTE .MEDSUPPLY Qty: 1 0RF Rx Instructions: As directed 3x/day (DME) FreeStyle Lite Strips Strip See Rx Instructions .ROUTE .MEDSUPPLY Qty: 100 11RF Rx Instructions: As directed three times a day (DME) lancets [FreeStyle Lancets] 28 gauge misc See Rx Instructions .ROUTE .MEDSUPPLY Qty: 100 11RF Rx Instructions: Three times a day atorvastatin 80 mg tablet 80 mg PO BEDTIME 90 Days Qty: 90 1RF ezetimibe 10 mg tablet 10 mg PO DAILY 90 Days Qty: 90 1RF lisinopril 5 mg tablet 5 mg PO DAILY 90 Days Qty: 90 1RF tizanidine 2 mg tablet 2 mg PO Q12H PRN (Reason: muscle spasticity) Qty: 14 0RF ibuprofen 600 mg tablet 600 mg PO Q8H PRN (Reason: pain) Qty: 14 0RF simethicone [Gas Relief (simethicone)] 180 mg capsule 180 mg PO BID PRN (Reason: for cramps) Qty: 60 2RF (DME) FreeStyle Eliezer 14 Day Sensor Kit See Rx Instructions .MEDSUPPLY Qty: 2 11RF Rx Instructions: every 14 days (DME) pen needle, diabetic 32 gauge x 5/32 needle See Rx Instructions ea .ROUTE DIRECTED Qty: 100 3RF Rx Instructions: daily (DME) FreeStyle Precision Jarod Strips Strip See Rx Instructions .ROUTE .MEDSUPPLY Qty: 100 11RF Rx Instructions: As directed three times a day insulin glargine U-300 conc 300 unit/mL (1.5 mL) insulin pen 44 unit subcut QAM Qty: 4.5 6RF Trulicity 4.5 mg/0.5 mL pen injector 4.5 mg subcut QWEEK Qty: 2 6RF pantoprazole 40 mg tablet,delayed release (DR/EC) 40 mg PO DAILY Qty: 30 2RF Rx Instructions: take one tablet half an hour before breakfast sennosides [Natural Senna Laxative] 8.6 mg tablet 8.6 mg PO BEDTIME Qty: 90 3RF docusate sodium 100 mg capsule 100 mg PO BEDTIME Qty: 30 3RF Citrucel 500 mg tablet 500 mg PO DAILY Qty: 30 2RF Rx Instructions: take it with full glass of water Referrals: Meg Penn MD [Primary Care Provider] - Print Language: Chinese
[2021-10-11] MEDS: Ketorolac Tromethamine 15 MG/ML VIAL IM (18:40)
[2021-10-11] MEDS: Cyclobenzaprine HCl 10 MG TABLET PO (18:41)
== END 2021-10-11 18:50 | disposition home or self-care (01) ==
PROVIDERS: Emergency Provider Emergency Medicine; PCP Internal Medicine
DX: M54.42 Lumbago with sciatica, left side (principal); M79.605 Pain in left leg; Z79.899 Other long term (current) drug therapy
CPT/HCPCS: 96372; 99283; J1885

== ENCOUNTER 2021-11-05 07:44 | Outpatient (REF) | payer OTHER, SELFPAY ==
[2021-11-05 08:28] LABS: MANUAL DIFF FLAG NO
[2021-11-05 08:54] LABS: Basophils Percent Auto 0.6 % (0-2); Eosinophils Absolute Auto 0.1 X10*3/uL (0.0-0.4); Eosinophils Percent Auto 2.4 % (0-4); Hematocrit 39.9 % (37.0-47.0); Hemoglobin 13.5 g/dl (12.0-16.0); Imm Gran Abs Auto 0.02 X10*3/uL (0.00-0.03); Imm Gran Pct Auto 0.4 % (0.0-0.4); Lymphocytes Absolute Auto 2.2 X10*3/uL (1.2-4.9); Lymphocytes Percent Auto 40.3 % (20-40); Mean Corpuscular HGB Conc 33.8 g/dl (31.0-35.0); Mean Corpuscular Hemoglobin 28.8 pg (27.0-33.0); Mean Corpuscular Volume 85.3 fL (80.0-98.0); Mean Platelet Volume 11.2 fL (9.4-12.3); Monocytes Absolute Auto 0.4 X10*3/uL (0.1-1.2); Monocytes Percent Auto 6.5 % (2-11); Neutrophils Absolute Auto 2.7 x10*3/uL (2.0-8.3); Neutrophils Percent Auto 49.8 % (45-73); Platelet Count 238 X10*3/uL (160-400); Red Blood Count 4.68 X10*6/uL (4.20-5.50); Red Cell Distribution Width 11.9 % (11.0-16.0); White Blood Count 5.4 X10*3/uL (4.8-10.8)
[2021-11-05 09:09] LABS: Alanine Aminotransferase 23 U/L (0-31); Albumin Level 4.2 g/dL (3.5-5.0); Alkaline Phosphatase 128 U/L (39-117); Anion Gap 14 (12-20); Aspartate Amino Transferase 13 U/L (5-31); Bilirubin Total 0.5 mg/dL (0.0-1.0); Blood Urea Nitrogen 18 mg/dL (9-16); Calcium 9.8 mg/dL (8.4-10.2); Carbon Dioxide 24 mmol/L (22-29); Chloride 100 mmol/L (96-108); Cholesterol 280 mg/dL; Estimated Glomerular Filt Rate 53; Glucose Fasting 324 mg/dL (60-99); HDL Cholesterol 39 mg/dL; Potassium 4.6 mmol/L (3.3-5.1); Sodium 133 mmol/L (135-145); Total Protein 8.1 g/dL (6.5-8.0); Triglycerides 421 mg/dL
[2021-11-05 09:39] LABS: Creatinine Urine 38.44 mg/dL; Microalbumin Urine < 5.0 mg/L
[2021-11-05 09:44] LABS: Folate 16.4 ng/mL (> or = 4.0); Vitamin B12 400 pg/mL (200-900)
[2021-11-06 23:01] LABS: C Peptide 0.89 ng/mL (0.80-3.85)
[2021-11-09 19:07] LABS: Glutamic acid decarboxylase Ab <5 IU/mL (<5)
[2021-11-10 05:56] LABS: Vitamin D 25-OH, D2 <4 ng/mL; Vitamin D 25-OH, D3 44 ng/mL; Vitamin D 25-OH, Total 44 ng/mL (30-100)
[2021-11-19 23:47] LABS: Islet Cell Antibody Screen NEGATIVE (NEGATIVE)
== END 2021-11-05 07:45 | disposition home or self-care (01) ==
LOC: HO.LAB 07:44
PROVIDERS: Nurse Practitioner Gerontology; PCP Internal Medicine; Visit Provider Internal Medicine
DX: E55.9 Vitamin D deficiency, unspecified (principal); D51.0 Vitamin B12 deficiency anemia due to intrinsic factor deficiency; E78.5 Hyperlipidemia, unspecified; E11.65 Type 2 diabetes mellitus with hyperglycemia; D64.9 Anemia, unspecified
CPT/HCPCS: 36415; 80053; 80061; 82043; 82306; 82607; 82746; 84681; 85025; 86255; 86341

== ENCOUNTER 2022-03-20 08:39 | Outpatient (REF) | payer OTHER, SELFPAY ==
[2022-03-20 09:45] LABS: Alanine Aminotransferase 27 U/L (0-31); Albumin Level 4.5 g/dL (3.5-5.0); Alkaline Phosphatase 93 U/L (39-117); Anion Gap 16 (12-20); Aspartate Amino Transferase 19 U/L (5-31); Bilirubin Total 0.5 mg/dL (0.0-1.0); Blood Urea Nitrogen 17 mg/dL (9-16); Calcium 9.8 mg/dL (8.4-10.2); Carbon Dioxide 24 mmol/L (22-29); Chloride 103 mmol/L (96-108); Cholesterol 164 mg/dL; Estimated Glomerular Filt Rate 49; Glucose Fasting 153 mg/dL (60-99); HDL Cholesterol 32 mg/dL; LDL Cholesterol Calculated 105 mg/dl; Potassium 4.2 mmol/L (3.3-5.1); Sodium 139 mmol/L (135-145); Total Protein 8.4 g/dL (6.5-8.0); Triglycerides 139 mg/dL
[2022-03-20 09:52] LABS: Vitamin D 25-OH Total 40.1 ng/mL (>30)
[2022-03-20 10:05] LABS: Folate 13.6 ng/mL (> or = 4.0); Vitamin B12 428 pg/mL (200-900)
[2022-03-20 10:23] LABS: Creatinine Urine 95.92 mg/dL; Microalbumin Urine < 5.0 mg/L
== END 2022-03-20 08:40 | disposition home or self-care (01) ==
LOC: HO.LAB 08:39
PROVIDERS: PCP Internal Medicine; Visit Provider Internal Medicine
DX: E11.9 Type 2 diabetes mellitus without complications (principal); E55.9 Vitamin D deficiency, unspecified; D51.0 Vitamin B12 deficiency anemia due to intrinsic factor deficiency; E78.5 Hyperlipidemia, unspecified; E78.2 Mixed hyperlipidemia
CPT/HCPCS: 36415; 80053; 80061; 82043; 82306; 82607; 82746

== ENCOUNTER 2022-03-25 12:07 | Outpatient (REF) | payer OTHER, SELFPAY ==
--- NOTE | ~2022-03-25 | XR_ITS ---
EXAMINATION: XR HAND, RIGHT CLINICAL INFORMATION: Right hand pain COMPARISON: None TECHNIQUE: PA, lateral, and oblique views of the right hand. FINDINGS: The bones and soft tissues are normal. No fracture. Alignment is anatomic. Joint spaces are maintained. No erosions or soft tissue calcifications. XR/XR hand RT 2V IMPRESSION: Normal right hand.
== END 2022-03-25 12:08 | disposition home or self-care (01) ==
LOC: HO.XRAY 12:07
PROVIDERS: PCP Internal Medicine; Visit Provider Internal Medicine
DX: M79.641 Pain in right hand (principal)
CPT/HCPCS: 73120

== ENCOUNTER → 2022-04-29 13:59 | Outpatient (BNVA) | payer OTHER, SELFPAY | PROVIDERS: PCP Internal Medicine; Visit Provider Nurse Practitioner Family | DX: K58.1 Irritable bowel syndrome with constipation (principal); K59.04 Chronic idiopathic constipation; K21.9 Gastro-esophageal reflux disease without esophagitis; Z79.899 Other long term (current) drug therapy | CPT/HCPCS: 99212 ==

== ENCOUNTER 2022-07-24 08:10 | Outpatient (REF) | payer OTHER, SELFPAY ==
[2022-07-24 10:35] LABS: Creatinine Urine 107.02 mg/dL; Microalbum/Creatinine Ratio Ur 5.6 ug/mg cr
[2022-07-24 12:37] LABS: Cholesterol 180 mg/dL; HDL Cholesterol 41 mg/dL; LDL Cholesterol Calculated 116 mg/dl; Triglycerides 116 mg/dL
[2022-07-24 13:13] LABS: Folate 12.8 ng/mL (> or = 4.0); Vitamin B12 383 pg/mL (200-900); Vitamin D 25-OH Total 30.6 ng/mL (>30)
[2022-07-28 20:22] LABS: Lipoprotein A >600 nmol/L (<75)
[2022-07-29 21:45] LABS: Apolipoprotein B 108 mg/dL (<90)
[2022-07-31 17:23] LABS: Lipoprotein Asso Phospholip A2 100 (<124)
== END 2022-07-24 08:11 | disposition home or self-care (01) ==
LOC: HO.LAB 08:10
PROVIDERS: PCP Internal Medicine; Visit Provider Internal Medicine
DX: E78.5 Hyperlipidemia, unspecified (principal); E11.9 Type 2 diabetes mellitus without complications; E55.9 Vitamin D deficiency, unspecified; D51.0 Vitamin B12 deficiency anemia due to intrinsic factor deficiency
CPT/HCPCS: 36415; 80061; 82043; 82172; 82306; 82607; 82746; 83695; 83698

== ENCOUNTER → 2022-08-03 14:45 | Outpatient (BNVA) | payer OTHER, SELFPAY | PROVIDERS: PCP Internal Medicine; Visit Provider Nurse Practitioner Family | DX: K21.9 Gastro-esophageal reflux disease without esophagitis (principal); R14.0 Abdominal distension (gaseous); K58.2 Mixed irritable bowel syndrome; E11.65 Type 2 diabetes mellitus with hyperglycemia; E11.42 Type 2 diabetes mellitus with diabetic polyneuropathy; Z79.4 Long term (current) use of insulin | CPT/HCPCS: 99212 ==

== ENCOUNTER 2022-08-17 13:01 | Outpatient (REF) | payer OTHER, SELFPAY ==
--- NOTE | ~2022-08-17 | MM_ITS ---
EXAMINATION: MM SCREENING DIGITAL BREAST TOMOSYNTHESIS, BILATERAL CLINICAL INFORMATION: Screening. Asymptomatic. The lifetime risk of breast cancer based on the Tyrer-Cuzick Model is 12%. COMPARISON: Mammography: 08/01/2021, 07/31/2020, 06/19/2019 TECHNIQUE: Digital breast tomosynthesis is performed in both the craniocaudal and mediolateral oblique views along with computer-aided detection (CAD). Synthesized 2D images are generated from the tomosynthesis. FINDINGS: There are scattered areas of fibroglandular density (ACR BI-RADS breast composition Category b). There are no significant masses, abnormal calcifications, or other abnormalities. No architectural abnormality or developing density or significant change from prior studies. There is a biopsy clip marker again noted central upper outer left breast. The axilla are unremarkable. Skin contours are smooth. MM/MM tomosynthesis screening BI IMPRESSION: No mammographic evidence of malignancy. ASSESSMENT: BI-RADS 1: Negative RECOMMENDATION: Routine annual mammography screening. This patient's information was entered into a reminder system with a target due date for their next mammogram.
== END 2022-08-17 13:02 | disposition home or self-care (01) ==
LOC: HO.MAMMO 13:01
PROVIDERS: PCP Internal Medicine; Visit Provider Internal Medicine
DX: Z12.31 Encounter for screening mammogram for malignant neoplasm of breast (principal)
CPT/HCPCS: 77063; 77067

== ENCOUNTER → 2022-10-27 15:08 | Outpatient (BNVA) | payer OTHER, SELFPAY | PROVIDERS: PCP Internal Medicine; Visit Provider Nurse Practitioner Family | DX: Z12.11 Encounter for screening for malignant neoplasm of colon (principal); K21.9 Gastro-esophageal reflux disease without esophagitis; K58.1 Irritable bowel syndrome with constipation; R14.0 Abdominal distension (gaseous) | CPT/HCPCS: 99212 ==

== ENCOUNTER 2022-11-04 14:27 | Day surgery (SDC) | payer OTHER, SELFPAY ==
--- NOTE | 2022-11-03 12:04 | HO.ANESPROP2 ---
Documented by User: Wilma Claudio NP 11/03/22 12:04 HPI - Anesthesia Eval Consult details Narrative: 62yo F for Upper Endoscopy and Colonoscopy [facility] Active Problems Active Problems: All Active Problems (Updated 08/13/22 @ 15:19 by Meg Faustin MD) Type 2 diabetes mellitus with hyperglycemia, with long-term current use of insulin (Acute) Familial hypercholesterolemia (Acute) Right hand pain (Acute) Mixed hyperlipidemia (Acute) Back pain (Acute) Right tennis elbow (Acute) Right elbow pain (Acute) Abnormal UGI series (Acute) GERD (gastroesophageal reflux disease) (Acute) Pernicious anemia (Acute) Diabetic polyneuropathy associated with type 2 diabetes mellitus (Acute) [facility] (current) use of insulin (Acute) Diabetes type 2, uncontrolled (Acute) Hypovitaminosis D (Acute) Right shoulder pain (Acute) Hypertension (Acute) Dyslipidemia (Acute) Diabetes (Acute) Past Medical History Medical History Abnormal UGI series Diabetes Diabetes type 2, uncontrolled Diabetic polyneuropathy associated with type 2 diabetes mellitus Dyslipidemia GERD (gastroesophageal reflux disease) Hypertension Hypovitaminosis 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 Mother No problems noted. 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 Cognitive needs: No Hearing needs: No Vision needs: No Meds Allergies Allergy/AdvReac Type Severity Reaction Status Date / Time No Known Allergies Allergy Verified 11/04/22 14:46 [No Known Allergies*] Exam Exam Date and Time: November 03, 2022 1204 Assessment and Plan Assessment Anesthesia Assessment: Chart Reviewed Documented by User: Sol Young MD 11/04/22 16:02 [facility] Past Medical History Medical History Abnormal UGI series Diabetes Diabetes type 2, uncontrolled Diabetic polyneuropathy associated with type 2 diabetes mellitus Dyslipidemia GERD (gastroesophageal reflux disease) Hypertension Hypovitaminosis D [facility] (current) use of insulin Pernicious anemia Right elbow pain Right shoulder pain Family History Family History Father No problems noted. Mother No problems noted. 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 Cognitive needs: No Hearing needs: No Vision needs: No Meds Allergies Allergy/AdvReac Type Severity Reaction Status Date / Time No Known Allergies Allergy Verified 11/04/22 14:46 [No Known Allergies*] Exam Airway Mallampati Class: II TM Dist: >3cm Neck ROM: Full Denture: Upper Heart: rrr Lungs: cta Assessment and Plan Assessment Anesthesia Assessment: Anesthesia Plan Discussed Final Anesthetic Review NPO: Yes ASA Class: III Final Preanesthetic Review: No Changes in Pt Med Stat, Meds/Allgs Chart Reviewed and Consent Obtained/Reviewed Patient Risk: Intermediate Procedure Risk: Intermediate Anesthetic Plan Anesthetic Plan: MAC: Disposition: Standard PACU
[2022-11-04 14:37] VITALS: BP 158/78; PULSE 102; RESP 16; TEMP 36.6; O2SAT 97; BMI 27.1
[2022-11-04] MEDS: Lactated Ringers 1,000 ML 100 ML IVCONT (15:03)
[2022-11-04 15:04] LABS: Glucose, Whole Blood 228 mg/dL (60-115)
--- NOTE | 2022-11-04 15:30 | PC.NURSE ---
Report give to PACU nurse Nando. Patient waiting to go into procedure room, call torres within reach.
--- NOTE | 2022-11-04 15:33 | MHC.SHP ---
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 Pernicious anemia Right elbow pain Right shoulder pain) History of Previous Operations: Relevant previous surgery/procedure and date(s) (H/O tubal ligation H/O: hysterectomy History of appendectomy History of hemicolectomy) Allergies: Allergies Allergy/AdvReac Type Severity Reaction Status Date / Time No Known Allergies Allergy Verified 11/04/22 14:46 [No Known Allergies*] Review of Systems Sugical H&P ROS: Negative: Constitution, Cardiovascular, Respiratory, Neurological, Psychiatric, Hem-Onc, Allergic/Immunologic, Gastrointestinal, Genitourinary, Musculoskeletal, Integumentary, Endocrine and Eyes/Ears/Nose/Throat Exam Surgical H&P Exam: Normal: HEENT, Normal: Heart, Normal: Lungs, Normal: Extremities, Normal: Abdomen, Normal: Skin and Normal: Neurological Plan Diagnosis/Plan: Unchanged I have reviewed the history and physical and performed a pertinent physical examination on my patient. No changes have occurred unless specified. Time Spent With Patient Time: Total time managing care of this patient today ____ minutes.
--- NOTE | 2022-11-04 15:35 | P.OP_ITS ---
Operative Note Operative Note Date of Service: 11/04/22 Narrative: Operative Information Procedure Description: EGD, Colonoscopy Indication: GERD, colon screening Anesthesia: MAC FLEXIBLE TRANSORAL UPPER GASTROINTESTINAL ENDOSCOPY AND COLONOSCOPY PROCEDURE NOTE UPPER ENDOSCOPY Consent: Indications for the procedure and potential complications of bleeding, perforation, reaction to medications and missed diagnosis were discussed with the patient and informed consent was obtained. Instrument: Olympus GIF H 190 J mid size upper endoscope Monitoring: Vital signs and clinical assessment, continuous EKG monitoring, Pulse oximetry, Carbon Dioxide monitoring and blood pressure monitoring were done throughout the procedure. Procedure: The patient was placed in the left lateral decubitis position and pre-procedure medications were administered and a bite block was placed. The endoscope was inserted into the mouth and advanced under direct vision to the third part of duodenum. A careful inspection was made as the upper endoscope was withdrawn including a retroflexed examination of the proximal stomach; Findings and interventions are described below. Findings: Larynx:normal Esophagus: GE junction at 36 cm, diaphragm hiatus at 36 cm, erythema and bogginess at GEJ, bx taken-also taken bx from distal esophagus Stomach: Mild erythema. Biopsies were obtained. Grade 2 flap valve on retroflexed examination of the cardia. Duodenum: Normal bulb and descending duodenum, Intervention: Biopsies as noted above COLONOSCOPY Instrument: Olympus variable stiffness pediatric scope 190L Colonoscopy Monitoring: Vital signs and clinical assessment, continuous EKG monitoring, Pulse oximetry, Carbon Dioxide monitoring and blood pressure monitoring were done throughout the procedure. Colon withdrawal time was 6 minutes. Procedure: The patient was placed in the left lateral decubitis position and pre-procedure medications were administered. After a digital rectal examination of the ano-rectum, the video colonoscope was inserted into the rectum and advanced through the colon to the cecum/TI. The colonoscope was slowly withdrawn in a retrograde panoramic fashion and the colon mucosa was carefully examined including a retroflexed view of the rectum. Findings and interventions are described below. Procedure Difficulty:easy Findings: ileocecal anastomosis--normal Transverse Colon -normal Descending Colon: 4-6 mm sessile polyp removed with cold forceps Sigmoid Colon: moderate diverticulosis Rectum: Retroflexion with small internal hemorrhoids, grade I Anorectum - normal Colon preparation: [place] Bowel Preparation Scale Right colon; 2 Transverse colon: 3 Left colon; 3 (0 = Unprepared colon segment with mucosa not seen due to solid stool that canno t be cleared. 1 = Portion of mucosa of the colon segment seen, but other areas of the colon segment not well seen due to staining, residual stool and/or opaque liquid. 2 = Minor amount of residual staining, small fragments of stool and/or opaque liquid, but mucosa of colon segment seen well. 3 = Entire mucosa of colon segment seen well with no residual staining, small fragments of stool or opaque liquid) Impression and Post Procedure Diagnosis: Endoscopy Findings: esophagitis gastritis Colonoscopy Findings: internal hemorrhoids diverticular disease Plan: Await Pathology results Repeat Colonoscopy in 5 years or earlier if clinically indicated High fiber diet leaflet avoid straining at stool, epsom salts and sitz bath, anusol supps or cream GERD precautions Above findings were reviewed with the patient and relevant handouts were provided if indicated.
[2022-11-04 16:21] VITALS: BP 114/69; PULSE 97; RESP 16; TEMP 36.3; O2SAT 97
[2022-11-04 16:27] LABS: Glucose, Whole Blood 174 mg/dL (60-115)
[2022-11-04 16:36] VITALS: BP 124/73; PULSE 76; RESP 16; O2SAT 95
[2022-11-04 16:51] VITALS: BP 119/63; PULSE 82; RESP 16; TEMP 36.6; O2SAT 96
== END 2022-11-04 17:04 | disposition home or self-care (01) ==
PROVIDERS: PCP Internal Medicine; Visit Provider Internal Medicine Gastroenterology
PROC: (CPT 45380; principal; 2022-11-04 16:10)
DX: Z12.11 Encounter for screening for malignant neoplasm of colon (principal); D12.4 Benign neoplasm of descending colon; K57.30 Diverticulosis of large intestine without perforation or abscess without bleeding; K64.0 First degree hemorrhoids; K58.1 Irritable bowel syndrome with constipation; K21.9 Gastro-esophageal reflux disease without esophagitis; K29.50 Unspecified chronic gastritis without bleeding; K20.80 Other esophagitis without bleeding; K44.9 Diaphragmatic hernia without obstruction or gangrene; I10 Essential (primary) hypertension; E55.9 Vitamin D deficiency, unspecified; E78.5 Hyperlipidemia, unspecified; D51.0 Vitamin B12 deficiency anemia due to intrinsic factor deficiency; E11.42 Type 2 diabetes mellitus with diabetic polyneuropathy; Z79.4 Long term (current) use of insulin; Z79.899 Other long term (current) drug therapy; Z90.49 Acquired absence of other specified parts of digestive tract; Z98.890 Other specified postprocedural states
CPT/HCPCS: 45380; 43239; 82947; 88305; 88342

== ENCOUNTER 2022-11-27 10:28 | Outpatient (AMB) | payer OTHER, SELFPAY ==
--- NOTE | 2022-11-27 10:37 | MHC.OFFVIS ---
Intake Vital Signs 11/27/22 10:38 Height 5 ft 4 in Weight 156 lb 8.451 oz BMI 26.9 BP 112/64 Blood Pressure Location Lt brachial Position Sitting Pulse 89 Intake Visit Reasons: S/p egd/colon- [facility] Intake Note: Kailey presents in office as a est.patient for a post-op f/u pt got it done 11.04.22 PT CC: pt reports having abdominal pain, bloating , diarrhea pt denies any other GI Issues Document Review Specialist Required: No Accompanied by: Self / Same As Patient Allergies No Known Allergies [No Known Allergies*] Allergy (Verified 12/14/22 14:54) HPI S/p egd/colon- [facility] HPI Details LAST VISIT: GERD (gastroesophageal reflux disease) Continue pantoprazole every morning half an hour before breakfast. Discussed with patient avoiding dietary triggers in late night snacking. Staying upright for minimum 3 hours after meals discussed with patient. Will send patient for upper endoscopy to rule out esophagitis, gastritis, duodenitis, gastric or peptic ulcers, H pylori Postprandial abdominal bloating Occasional postprandial abdominal bloating. Will send patient script for simethicone. Discussed with patient no FODMAP diet IBS (irritable bowel syndrome) Screen for colon cancer Patient denies any GI, cardiac or respiratory symptoms.? Denies any issues with anesthesia in the past.? Denies any history of sleep apnea.? No history infectious diseases in the past or present.? Not on any anticoagulation therapy.? No family or personal history of colon cancer.? Patient denies melena, hematochezia, unintentional weight loss or ribbon like stools.? Discussed at length the pre-procedure,? prep, diet & medications as well as what to expect prior, during and after the procedure.?? Stressed the importance of good bowel prep. Patient is diabetic and is taking morning insulin. Recommendation was made to not to take insulin the day of the procedure and day before the procedure take half the insulin. ?Recommended the use of Vaseline or Calmoseptine OTC & baby wipes with bowel movements to promote comfort.? ?Patient verbalizes understanding and agrees to plan of care.? She was given the opportunity to ask questions and all questions answered.? We will see her after the procedure.? UPPER ENDOSCOPY AND COLONOSCOPY: Findings: Larynx:normal Esophagus: GE junction at 36? cm, diaphragm hiatus at 36 cm, erythema and bogginess at GEJ, bx taken-also taken bx from distal esophagus Stomach: Mild erythema. Biopsies were obtained. Grade 2 flap valve on retroflexed examination of the cardia. Duodenum: Normal bulb and descending duodenum, Findings: ileocecal anastomosis--normal Transverse Colon -normal Descending Colon: 4-6 mm sessile polyp removed with cold forceps Sigmoid Colon: moderate diverticulosis Rectum: Retroflexion with small internal hemorrhoids, grade I Anorectum - normal Colon preparation: [place] Bowel Preparation Scale Right colon; 2 Transverse colon: 3 Left colon; 3 (0 = Unprepared colon segment with mucosa not seen due to solid stool that cannot be cleared. 1 = Portion of mucosa of the colon segment seen, but other areas of the colon segment not well seen due to staining, residual stool and/or opaque liquid. 2 = Minor amount of residual staining, small fragments of stool and/or opaque liquid, but mucosa of colon segment seen well. 3 = Entire mucosa of colon segment seen well with no residual staining, small fragments of stool or opaque liquid) Impression and Post Procedure Diagnosis: Endoscopy Findings: esophagitis gastritis Colonoscopy Findings: internal hemorrhoids diverticular disease Plan: Await Pathology results Repeat Colonoscopy in 5 years or earlier if clinically indicated High fiber diet leaflet avoid straining at stool, epsom salts and sitz bath, anusol supps or cream GERD precautions PATHOLOGY RESULTS: Diagnosis A.? Stomach, biopsy:? Gastric antral and body mucosa with congestion and minimal chronic inactive gastritis; negative for H pylori, intestinal metaplasia and dysplasia.? B.? Gastroesophageal junction, biopsy:? Columnar mucosa with hyperplasia and mild chronic inflammation; negative for intestinal metaplasia and dysplasia.? C.? Esophagus, distal, biopsy:? Squamous mucosa with no specific change; no columnar mucosa present.? D.? Colon, descending, polyp:? Tubular adenoma; negative for high-grade dysplasia and carcinoma. TODAY'S VISIT Patient is here today for follow-up in to discuss upper endoscopy and colonoscopy results. Patient reports no ill effects from the prep, anesthesia or procedure itself. Patient was found to have 1 polyp in descending colon, biopsy showed tubular adenoma without high-grade dysplasia or carcinoma. Patient reports to have epigastric discomfort postprandially occasional postprandial loose stools. Esophagitis found at GE junction as well as gastritis without H pylori. Patient is on pantoprazole daily. Feels like it helps for the most part. Patient also is diabetic and patient's blood sugars are not quite controlled. A1c from July was 8.8 %. Patient denies any nausea or vomiting. Denies melena, hematochezia, unintentional weight loss or ribbon like stools. FORMERLY [facility] Medical History Abnormal UGI series Diabetes Diabetes type 2, uncontrolled Diabetic polyneuropathy associated with type 2 diabetes mellitus Dyslipidemia GERD (gastroesophageal reflux disease) Hypertension Hypovitaminosis D [employer] (current) use of insulin Pernicious anemia Right elbow pain Right shoulder pain Surgical History H/O tubal ligation H/O: hysterectomy History of appendectomy History of esophagogastroduodenoscopy (EGD) History of hemicolectomy Hx of colonoscopy Family History Father No problems noted. Mother No problems noted. 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[employer] Current occupational exposures/hazards: No Cognitive needs: No Hearing needs: No Vision needs: No Review of Systems Const Denies weight gain and Denies weight loss ENT Reports no additional complaints, Denies dysphagia and Denies odynophagia Card Reports no additional complaints Resp Reports no additional complaints GI Reports abdominal pain (Epigastric), Denies belching, Denies melena, Reports bloating, Denies dysphagia, Denies excessive flatus, Reports dyspepsia, Reports heartburn, Denies diarrhea, Reports loose stools, Denies nausea, Denies odynophagia and Denies vomiting Reports no additional complaints Musc Reports no additional complaints Neuro Reports no additional complaints Psych Reports no additional complaints Endo Reports no additional complaints Physical Exam Vital Signs: Last Vital Signs Pulse 89 11/27/22 10:38 BP 112/64 11/27/22 10:38 BMI result Body Mass Index 26.9 Const General: healthy appearing, no acute distress and well developed Nutritional Appearance: well nourished Orientation/consciousness: patient oriented x3 HEENT Head: Yes normal to inspection, Yes normocephalic and Yes atraumatic Face and sinus: Yes normal facial exam Mouth: Normal oral and palatal mucosa present Throat: Yes posterior oropharynx normal, Yes tonsils normal and Yes uvula midline Eyes General: appearance normal, both eyes and all related structures Neck Neck: Yes normal visual inspection, Yes full ROM and Yes trachea midline Thyroid: Thyroid normal Resp Effort & Inspection: normal respiratory effort, able to speak in complete sentences, no tracheal deviation and symmetric chest movement Auscultation: clear to auscultation bilaterally Cardio Rate: regular rate Heart sounds: S1 normal heart sound present and S2 normal heart sound present GI Inspection: Yes normal to inspection and No distended Palpation (GI): Soft to palpation, not firm, nontender and No hepatosplenomegaly present Auscultation: normal bowel sounds General: Yes no CVA tenderness Back/Spine/Pelvis Back: no CVA tenderness Skin General skin exam: elasticity normal, turgor normal and dry skin Neuro General: patient oriented x3 Psych Appearance: grossly normal Mental Status: mental status grossly normal Speech and movement: Normal speech and movement present Affect: normal affect Assessment & Plan Assessment & Plan (1) GERD (gastroesophageal reflux disease): Code(s): K21.9 - Gastro-esophageal reflux disease without esophagitis Qualifiers: Esophagitis presence: esophagitis presence not specified Qualified Code(s): K21.9 - Gastro-esophageal reflux disease without esophagitis Plan: Continue pantoprazole, will add sucralfate at night time. Patient was encouraged to avoid dietary triggers and late night snacking. Staying upright for minimal 3 hours after meals discussed with patient. (2) Postprandial abdominal bloating: Code(s): R14.0 - Abdominal distension (gaseous) Plan: Occasional postprandial abdominal bloating and epigastric discomfort postprandially. Discussed with patient will FODMAP diet, list of food recommended as well as list of food to avoid provided to patient. Patient reports epigastric discomfort postprandially will run transglutaminase., upper endoscopy showed normal duodenum (3) IBS (irritable bowel syndrome): Code(s): K58.9 - Irritable bowel syndrome without diarrhea Qualifiers: Irritable bowel syndrome type: with both diarrhea and constipation Qualified Code(s): K58.2 - Mixed irritable bowel syndrome Plan: Low FODMAP diet discussed. Patient denies abdominal pain or cramping. Reports occasional postprandial loose stools. Better control of patient's blood sugars. Will check lipase, liver profile, vitamin D, B12, folate. I will see patient in 2 months, sooner on as needed basis. Patient is agreeable to this plan and verbalizes understanding of instructions. She was given the opportunity to ask questions and all questions answered. Thank you for allowing me to participate in her care Orders: Orders Liver Panel 11/27/22 R10.9 - Unspecified abdominal pain Lipase 11/27/22 R10.9 - Unspecified abdominal pain Vitamin D 25-OH (D2 and D3) 11/27/22 E55.9 - Vitamin D deficiency, unspecified Vitamin B12 and Folate 11/27/22 R19.7 - Diarrhea, unspecified Transglutaminase Ab IgG 11/27/22 R10.9 - Unspecified abdominal pain Transglutaminase IgA 11/27/22 R10.9 - Unspecified abdominal pain Medications: New sucralfate 10 mL PO BEDTIME 400 mL 3RF K21.9 - Gastro-esophageal reflux disease without esophagitis Coding Level of Care Code Est Pt Level 4 (35498) Diagnoses GERD (gastroesophageal reflux disease) K21.9 Esophagitis presence: esophagitis presence not specified Postprandial abdominal bloating R14.0 IBS (irritable bowel syndrome) K58.2 Irritable bowel syndrome type: with both diarrhea and constipation Time Spent (min) 35 Comment 25 minute spent with patient and additional 10 minutes spent reviewing her records
[2022-11-27 10:38] VITALS: BP 112/64; PULSE 89; BMI 26.9
== END 2022-11-27 11:11 | disposition home or self-care (01) ==
PROVIDERS: PCP Internal Medicine; Visit Provider Nurse Practitioner Family
DX: K21.9 Gastro-esophageal reflux disease without esophagitis (principal); R14.0 Abdominal distension (gaseous); K58.2 Mixed irritable bowel syndrome
CPT/HCPCS: 99214

== ENCOUNTER → 2022-11-27 10:28 | Outpatient (BNVA) | payer OTHER, SELFPAY | PROVIDERS: PCP Internal Medicine; Visit Provider Nurse Practitioner Family | DX: K21.00 Gastro-esophageal reflux disease with esophagitis, without bleeding (principal); K29.70 Gastritis, unspecified, without bleeding; D12.4 Benign neoplasm of descending colon; K57.30 Diverticulosis of large intestine without perforation or abscess without bleeding; K64.8 Other hemorrhoids; K58.2 Mixed irritable bowel syndrome; Z98.890 Other specified postprocedural states | CPT/HCPCS: 99212 ==

== ENCOUNTER 2022-12-11 06:01 | Outpatient (REF) | payer OTHER, SELFPAY ==
[2022-12-11 08:22] LABS: Alanine Aminotransferase 31 U/L (0-31); Alkaline Phosphatase 94 U/L (39-117); Anion Gap 12 (12-20); Aspartate Amino Transferase 20 U/L (5-31); Bilirubin Direct 0.2 mg/dL (0.0-0.5); Bilirubin Total 0.4 mg/dL (0.0-1.0); Blood Urea Nitrogen 14 mg/dL (9-16); Calcium 9.3 mg/dL (8.4-10.2); Carbon Dioxide 24 mmol/L (22-29); Chloride 106 mmol/L (96-108); Cholesterol 172 mg/dL; Estimated Glomerular Filt Rate > 60; Glucose Fasting 169 mg/dL (60-99); HDL Cholesterol 37 mg/dL; LDL Cholesterol Calculated 98 mg/dl; Lipase 52 U/L (8-78); Potassium 3.8 mmol/L (3.3-5.1); Sodium 138 mmol/L (135-145); Total Protein 7.6 g/dL (6.5-8.0); Triglycerides 186 mg/dL
[2022-12-11 08:38] LABS: Vitamin D 25-OH Total 30.8 ng/mL (>30)
[2022-12-11 09:41] LABS: Creatinine Urine 48.52 mg/dL; Microalbumin Urine < 5.0 mg/L
== END 2022-12-11 06:02 | disposition home or self-care (01) ==
LOC: HO.LAB 06:01
PROVIDERS: Nurse Practitioner Family; PCP Internal Medicine; Visit Provider Internal Medicine
DX: E55.9 Vitamin D deficiency, unspecified (principal); R10.9 Unspecified abdominal pain; E78.5 Hyperlipidemia, unspecified; E11.9 Type 2 diabetes mellitus without complications; E78.01 Familial hypercholesterolemia; R19.7 Diarrhea, unspecified
CPT/HCPCS: 36415; 80053; 80061; 80076; 82043; 82248; 82306; 83690

== ENCOUNTER 2022-12-14 14:43 | Outpatient (AMB) | payer OTHER, SELFPAY ==
[2022-12-14 14:52] VITALS: BP 130/70; BMI 27.1
--- NOTE | 2022-12-14 14:52 | A.OFFPC_ITS ---
Vital Signs 12/14/22 14:52 Height 5 ft 4 in Weight 158 lb BMI 27.1 BP 130/70 Blood Pressure Location Lt brachial Position Sitting Intake Visit Reasons: PE Intake Note: Patient here for a physical exam Director Trade Required: No Accompanied by: Self / Same As Patient Allergies No Known Allergies [No Known Allergies*] Allergy (Verified 12/14/22 14:54) Medication List - Last Reconciled 12/14/22 by Meg Faustin MD atorvastatin 80 mg PO BEDTIME 90 days blood sugar diagnostic (FreeStyle Lite Strips) As directed three times a day blood sugar diagnostic (FreeStyle Precision [place]od Strips) As directed three times a day blood-glucose meter (FreeStyle [place] Lite kit) As directed 3x/day canagliflozin-metformin 50-500 mg ER (Invokamet XR) 2 tabs (2 x 50-500 mg) PO DAILY 30 days cholecalciferol (vitamin D3) 25 mcg PO DAILY 30 days cyanocobalamin (vitamin B-12) 1,000 mcg sublingual DAILY 30 days docusate sodium 100 mg PO BEDTIME dulaglutide (Trulicity) 4.5 mg (0.5 mL) subcut QWEEK evolocumab (Repatha SureClick) 140 mg subcut Q2W 30 days ezetimibe 10 mg PO DAILY 90 days fenofibrate 54 mg PO DAILY 90 days insulin glargine U-300 conc 44 units (0.1467 mL) subcut QAM lancets As directed daily lancets (FreeStyle Lancets) Three times a day lisinopril 5 mg PO DAILY 90 days pantoprazole 40 mg PO DAILY pen needle, diabetic daily sennosides (Natural Senna Laxative) 8.6 mg PO BEDTIME simethicone 180 mg PO BID PRN sucralfate 10 mL PO BEDTIME Tobacco use date assessed: 08/13/22 Dental Screening Dental Screen Date: 12/14/22 Did you have a dental visit in the last 12 months?: Yes Did you have a dental problem in the last 6 months where you did not have access to dental care?: No Was dental information given to patient?: Patient has dentist HPI HPI Comments History of Present Illness Details This is a 62-year-old female with diabetes mellitus type 2 on long-term current use of insulin with hyperglycemia that comes for her physical exam. A1c is not on goal and I will increase insulin. Last mammogram was August 2022. Last colonoscopy was October 2022. No acute complaints. FORMERLY [facility], [facility] Medical History (Updated 12/14/22 @ 15:49 by Meg Faustin MD) Abnormal UGI series Diabetes Diabetes type 2, uncontrolled Diabetic polyneuropathy associated with type 2 diabetes mellitus Dyslipidemia GERD (gastroesophageal reflux disease) Hypertension Hypovitaminosis D [facility] (current) use of insulin Pernicious anemia Right elbow pain Right shoulder pain Surgical History H/O tubal ligation H/O: hysterectomy History of appendectomy History of esophagogastroduodenoscopy (EGD) History of hemicolectomy Hx of colonoscopy Family History Father No problems noted. Mother No problems noted. 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 Haris Larose, Andria Alonso, Sav Toribio and colleagues, with an educational andrew from [employer]. Review of Systems Const All systems reviewed & are unremarkable except as noted in HPI and below Eyes Reports no additional complaints, Denies change in vision and Denies other visual disturbances Card Denies chest pain at rest, Denies chest pain with activity, Denies edema, Denies irregular heart rhythm, Denies claudication, Denies dyspnea, Denies dyspnea on exertion, Denies orthopnea, Denies paroxysmal nocturnal dyspnea and Denies slow heart rate Resp Denies cough, Denies dyspnea and Denies dyspnea on exertion GI Denies abdominal pain, Denies change in bowel habits, Denies excessive flatus, Denies nausea and Denies vomiting Denies urinary incontinence, Denies urinary hesitancy and Denies urinary urgency Musc Denies atrophy, Denies deformity and Denies limited range of motion Skin/Breast Denies bleeding lesions, Denies changing lesions and Denies rash Physical exam (Primary Care) Vital Signs: Last Vital Signs BP 130/70 12/14/22 14:52 BMI result Body Mass Index 27.1 Tobacco/Smoking Status: Tobacco use Status Tobacco use date assessed 08/13/22 12/14/22 14:56 Patient Tobacco Use Status Never used Tobacco 12/14/22 14:56 e-Cigarette/Vaping Use Never Used 12/14/22 14:56 Thrive Assessment: Date of Thrive Assessment Date Thrive assessed 08/13/22 12/14/22 14:56 Const Orientation/consciousness: patient oriented x3 HENMT Head: Yes normal to inspection, Yes normocephalic and Yes atraumatic Ears: external ears normal Eyes General: appearance normal, both eyes and all related structures Eyelids: Yes eyelids normal Conjunctivae: conjunctivae normal Neck Neck: Yes normal visual inspection and Yes supple Resp Effort & Inspection: normal respiratory effort Auscultation: clear to auscultation bilaterally Cardio Jugular venous distension: no JVD Rate: regular rate Rhythm: regular rhythm Heart sounds: S1 normal heart sound present and S2 normal heart sound present GI Inspection: Yes normal to inspection Palpation (GI): Soft to palpation and nontender Auscultation: normal bowel sounds Skin General skin exam: no rashes or lesions noted Neuro General: patient oriented x3 and no focal motor deficits Extrem General: Yes full ROM Psych Appearance: grossly normal Results AMB Hemoglobin A1c AMB Hemoglobin A1c 9.5 % Last Edit by HERBERT Rodriguez on 12/14/22 14:5 9 Results Reviewed Results Reviewed: Laboratory Last Values Hgb A1c (Clinic) 9.5 % (4.0-6.0) H 12/14/22 14:57 Assessment and Plan Assessment & Plan (1) Physical exam: Code(s): Z00.00 - Encounter for general adult medical examination without abnormal findings Plan: Repeat in a year (2) Type 2 diabetes mellitus with hyperglycemia, with long-term current use of insulin: Code(s): E11.65 - Type 2 diabetes mellitus with hyperglycemia; Z79.4 - superintendent [employer] (current) use of insulin Plan: Increase insulin. A1c goal is equal or less than 7%. Orders: Orders Lipids Total, Feces 4 Months E78.01 - Familial hypercholesterolemia Apolipoprotein B 4 Months E78.01 - Familial hypercholesterolemia Comprehensive [place]. Panel Fast 4 Months E78.01 - Familial hypercholesterolemia Lipid Panel 4 Months E78.5 - Hyperlipidemia, unspecified Lipoprotein Asso Phospholip A2 4 Months E78.01 - Familial hypercholesterolemia Microalbumin, Random (w Creat) 4 Months E11.9 - Type 2 diabetes mellitus without complications AMB Hemoglobin A1c Today E11.9 - Type 2 diabetes mellitus without complications Medications: Changed From insulin glargine U-300 conc 44 units (0.1467 mL) subcut QAM 4.5 mL 6RF E11.65 - Type 2 diabetes mellitus with hyperglycemia To insulin glargine U-300 conc 50 units (0.1667 mL) subcut QAM 15.003 mL 6RF 90 days E11.65 - Type 2 diabetes mellitus with hyperglycemia Coding Level of Care Code Est Pt Prev Care 40-64y(46411) Diagnoses Physical exam Z00.00 Type 2 diabetes mellitus with hyperglycemia, with long-term current use of insulin E11.65; Z79.4 Time Spent (min) 35
== END 2022-12-14 15:40 | disposition home or self-care (01) ==
LOC: HO.HMGH 14:43
PROVIDERS: PCP Internal Medicine; Visit Provider Internal Medicine
DX: Z00.00 Encounter for general adult medical examination without abnormal findings (principal); E11.65 Type 2 diabetes mellitus with hyperglycemia; Z79.4 Long term (current) use of insulin; E11.9 Type 2 diabetes mellitus without complications
CPT/HCPCS: 83036; 99396

== ENCOUNTER 2023-03-12 12:09 | Outpatient (AMB) | payer OTHER, SELFPAY ==
[2023-03-12 12:33] VITALS: BP 142/70; PULSE 81; O2SAT 98; BMI 28.8
--- NOTE | 2023-03-12 12:33 | A.OFFPC_ITS ---
Vital Signs 03/12/23 12:33 Height 5 ft 4 in Weight 168 lb 0.2 oz BMI 28.8 BP 142/70 H Blood Pressure Location Lt brachial Position Sitting Pulse 81 Pulse Source Pulse Oximeter Pulse Oximetry (%) 98 Oxygen Delivery Method Room Air Intake Visit Reasons: hot sensation LT leg from ankle to middle of calf Intake Note: pt states left leg pain, hot sensation and pressure on calf area X1week [place] Operator Required: Yes [place] Operator Language: American Allergies No Known Allergies [No Known Allergies*] Allergy (Verified 03/12/23 13:12) Medication List - Last Reconciled 03/12/23 by AFRICA Minaya atorvastatin 80 mg PO BEDTIME 90 days blood sugar diagnostic (FreeStyle Lite Strips) As directed three times a day blood sugar diagnostic (FreeStyle Precision Jarod Strips) As directed three times a day blood-glucose meter (FreeStyle [place] Lite kit) As directed 3x/day canagliflozin-metformin 50-500 mg ER (Invokamet XR) 2 tabs (2 x 50-500 mg) PO DA JA 30 days cholecalciferol (vitamin D3) 25 mcg PO DAILY 30 days cyanocobalamin (vitamin B-12) 1,000 mcg sublingual DAILY 30 days docusate sodium 100 mg PO BEDTIME dulaglutide (Trulicity) 4.5 mg (0.5 mL) subcut QWEEK evolocumab (Repatha SureClick) 140 mg subcut Q2W 30 days ezetimibe 10 mg PO DAILY 90 days fenofibrate 54 mg PO DAILY 90 days insulin glargine U-300 conc 50 units (0.1667 mL) subcut QAM 90 days lancets As directed daily lancets (FreeStyle Lancets) Three times a day lisinopril 5 mg PO DAILY 90 days pantoprazole 40 mg PO DAILY pen needle, diabetic daily sennosides (Natural Senna Laxative) 8.6 mg PO BEDTIME simethicone 180 mg PO BID PRN sucralfate 10 mL PO BEDTIME Tobacco use date assessed: 03/12/23 HPI hot sensation LT leg from ankle to middle of calf HPI Details Patient is a 62-year-old female who presents today for the same day visit due to left calf pain for the past [address] Davis. Patient reports doing exercises against the wall, possibly this contributed to her symptoms, she denies right calf pain. Left calf no redness or swelling. She also reports cramping in both of her legs when at rest and sleeping, improvement with leg movement. No shortness of breath or chest pain. Patient is a American- speaking and ENEDINA Veras was helping with interpretation. 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 Mother No problems noted. Maternal Aunt Cancer Sister Breast cancer Social History Household Members: Spouse Housing: Apartment Alcohol intake: never Patient Tobacco Use Status: Never used Tobacco e-Cigarette/Vaping Use: Never Used Second Hand Smoke Exposure: Yes service: No Current occupational status: employed Current occupation: [employer] Current occupational exposures/hazards: No Cognitive needs: No Hearing needs: No Vision needs: No Questionnaire Thrive Questionnaire Date Thrive assessed: 08/13/22 AUDIT C Alcohol Use Questionnaire (AUDIT-C) 1. How often do you have a drink containing alcohol?: Never Total Score: 0 Score Reviewed/Action Taken: No JOVANA-7 AMB Questionnaire JOVANA-7 Date JOVANA - 7 assessed: 08/13/22 Source: Developed by Drs. Haris Larose, Andria Alonso, Sav Toribio and colleagues, with an educational andrew from [employer]. Review of Systems Const Denies body aches, Denies chills, Denies fever(s) and Denies headache(s) ENT Denies dizziness, Denies otalgia, Denies headache(s), Denies nasal discharge, Denies sinus pain and Denies sore throat Card Denies chest pain, Denies leg edema, Denies lightheadedness and Denies dyspnea Resp Denies dyspnea and Denies wheezing GI Denies abdominal pain Denies dysuria Musc Details: Neuropathy in feet Reports as per HPI and Denies myalgias Skin/Breast Denies rash Neuro Denies dizziness and Denies headache(s) Aller/Immun Denies wheezing Physical exam (Primary Care) Vital Signs: Last Vital Signs Pulse 81 03/12/23 12:33 BP 142/70 H 03/12/23 12:33 Pulse Ox 98 03/12/23 12:33 Oxygen Delivery Method Room Air 03/12/23 12:33 BMI result Body Mass Index 28.8 Tobacco/Smoking Status: Tobacco use Status Tobacco use date assessed 03/12/23 03/12/23 12:35 Patient Tobacco Use Status Never used Tobacco 03/12/23 12:35 e-Cigarette/Vaping Use Never Used 03/12/23 12:35 Thrive Assessment: Date of Thrive Assessment Date Thrive assessed 08/13/22 03/12/23 12:35 Const General: cooperative and no acute distress Orientation/consciousness: patient oriented x3 HENMT Head: Yes normocephalic and Yes atraumatic Throat: Yes posterior oropharynx normal Eyes General: appearance normal, both eyes and all related structures Neck Neck: Yes normal visual inspection and Yes full ROM Resp Effort & Inspection: normal respiratory effort and able to speak in complete sentences Auscultation: clear to auscultation bilaterally, no crackles, no rales, no rhonchi and no wheezes Cardio Rate: regular rate Rhythm: regular rhythm Heart sounds: S1 normal heart sound present and S2 normal heart sound present GI Auscultation: normal bowel sounds Skin General skin exam: no rashes or lesions noted Neuro General: patient oriented x3 Gait exam (Neuro): Normal gait present Extrem Other: Left calf normal to inspection, nontender, no erythema, no swelling General: Yes full ROM and No edema Assessment and Plan Assessment & Plan (1) RLS (restless legs syndrome): Code(s): G25.81 - Restless legs syndrome Plan: Start ropinirole at bedtime-educated about possible adverse reactions and when to notify provider (2) Pain of left calf: Code(s): M79.662 - Pain in left lower leg Plan: Suspect musculoskeletal in origin Left calf normal to inspection, nontender, no erythema, no swelling Patient is to hold off on exercises until improvement in pain She can also try ice packs p.r.n. Signs and symptoms reviewed when to notify provider or go to the emergency department Patient agreed with the plan Orders: Orders Influenza [id number] Immunization Today Z23 - Encounter for immunization Medications: New flu vacc [id number] 6mos up(PF) 0.5 mL IM ONCE 0.5 mL 0RF Z23 - Encounter for immunization ropinirole administer 1-3 hours before bedtime 0.25 mg PO BEDTIME 30 tabs 0RF G25.81 - Restless legs syndrome Coding Level of Care Code Est Pt Level 3 (90267) Diagnoses RLS (restless legs syndrome) G25.81 Pain of left calf M79.662
== END 2023-03-12 14:33 | disposition home or self-care (01) ==
LOC: HO.HMGH 12:09
PROVIDERS: PCP Internal Medicine; Visit Provider Nurse Practitioner Family
DX: G25.81 Restless legs syndrome (principal); M79.662 Pain in left lower leg; Z23 Encounter for immunization
CPT/HCPCS: 90471; 90686; 99213

== ENCOUNTER 2023-07-08 02:27 | Emergency (ER) | payer OTHER, SELFPAY ==
[2023-07-08 02:32] VITALS: BP 134/68; BP 174/92; PULSE 86; PULSE 91; RESP 18; O2SAT 96; O2SAT 98; BMI 25.7
[2023-07-08] MEDS: Cyclobenzaprine HCl 10 MG TABLET PO (03:03)
[2023-07-08] MEDS: Acetaminophen 325 MG TABLET 975 MG PO (03:03)
--- NOTE | 2023-07-08 05:00 | ED_ITS ---
HPI - Neck Pain/Injury General Chief Complaint: Neck Pain/Injury Stated Complaint: NECK PAIN Time Seen by Provider: 07/08/23 04:50 Source: patient and family Mode of arrival: ambulatory Limitations: no limitations History of Present Illness HPI Narrative: Patient comes to the emergency room complaining of bilateral neck pain, much worse on the right side. Patient states that about 3 days ago she slipped cook it and woke up with a muscular pain in the neck. Patient denies fever chills, no C-spine tenderness. Patient is able to flex and extend the neck but hurts rotating the neck sideways. Related Data Previous Rx's Medication Instructions Recorded lancets 33 gauge #100 ea 12/18/20 blood sugar diagnostic (FreeStyle #100 ea 04/08/21 Precision Jarod Strips) blood sugar diagnostic (FreeStyle #100 ea 04/23/21 Lite Strips) blood-glucose meter (FreeStyle #1 ea 04/23/21 [place] Lite kit) lancets 28 gauge (FreeStyle #100 ea 04/23/21 Lancets) ezetimibe 10 mg tablet 10 mg PO DAILY 90 days #90 tabs 11/03/21 pen needle, diabetic 32 gauge x #100 ea 11/03/21 atorvastatin 80 mg tablet 80 mg PO BEDTIME 90 days #90 tabs 12/04/21 simethicone 180 mg capsule 180 mg PO BID PRN for cramps #60 01/20/22 caps dulaglutide 4.5 mg/0.5 mL 4.5 mg (0.5 mL) subcut QWEEK #2 mL 04/07/22 subcutaneous pen injector (Judahulicity) evolocumab 140 mg/mL subcutaneous 140 mg subcut Q2W 30 days #3 mL 05/22/22 pen injector (Wes Fragoso) lisinopril 5 mg tablet 5 mg PO DAILY 90 days #90 tabs 08/13/22 sucralfate 100 mg/mL oral 10 ml PO BEDTIME #400 mL 11/27/22 suspension insulin glargine U-300 conc 300 50 unit (0.1667 mL) subcut QAM 90 12/14/22 unit/mL (1.5 mL) subcutaneous pen days #15.003 mL canagliflozin 50 mg-metformin ER 2 tab (2 x 50-500 mg) PO DAILY 30 01/14/23 500 mg tablet,extended release 24 days #60 ea hr (Invokamet XR) pantoprazole 40 mg tablet,delayed 40 mg PO DAILY #90 tabs 02/25/23 release ropinirole 0.25 mg tablet 0.25 mg PO BEDTIME #30 tabs 03/12/23 docusate sodium 100 mg capsule 100 mg PO BEDTIME #90 caps 06/03/23 sennosides 8.6 mg tablet (Natural 8.6 mg PO BEDTIME constipation #90 06/03/23 Senna Laxative) tabs cholecalciferol (vitamin D3) 25 25 mcg PO DAILY 30 days #30 caps 06/10/23 mcg (1,000 unit) capsule cyanocobalamin (vitamin B-12) 1,000 mcg sublingual DAILY 30 days 06/10/23 1,000 mcg sublingual tablet #30 tabs fenofibrate 54 mg tablet 54 mg PO DAILY 90 days #90 tabs 06/10/23 diazepam 2 mg tablet 2 mg PO BEDTIME PRN muscle pain #3 07/08/23 tabs ketorolac 10 mg tablet 10 mg PO TID PRN pain #7 tabs 07/08/23 Allergies Allergy/AdvReac Type Severity Reaction Status Date / Time No Known Allergies Allergy Verified 07/08/23 02:50 [No Known Allergies*] Review of Systems Review of Systems: Constitutional : No Weight loss, No Fever, No Chills, No Night Sweats, No Fatigue, No Malaise ENT/Mouth : No Hearing loss, No Ear Pain, No Nasal Congestion, No Sinus Pain, No Hoarseness, No sore throat, No Rhinorrhea, No Swallowing Difficulty Eyes: No Eye Pain, No Swelling, No Redness, No Foreign Body, No Discharge, No Vision Changes Cardiovascular : No Chest Pain, No SOB, No Dyspnea on Exertion, No Orthopnea, No Edema, No Palpitations Respiratory : No Cough, No Sputum, No Wheezing, No Smoke Exposure, No Dyspnea Gastrointestinal : No Nausea, No Vomiting, No Diarrhea, No Constipation, No abdominal Pain, No Hematochezia, No Melena Genitourinary : no irregular bleeding, No Dysuria, No Urinary Frequency, No Hematuria, No Urinary Incontinence, No Urgency, No Flank Pain, No Urinary Flow Changes, No Hesitancy Musculoskeletal : Complaining of right-sided neck pain No joint pain, No Myalgias, No Joint Swelling Skin : No Skin Lesions, No rash Neuro : No Weakness, No Numbness, No Paresthesias, No Loss of Consciousness, No Dizziness, No Headache Psych : No Anxiety/Panic, No Depression, No SI/HI/AH/VH, No Social Issues, Heme/Lymph: No Bruising, No Bleeding,No Lymphadenopathy Endocrine : No Polyuria, No Polydipsia, No Temperature Intolerance [facility] Past Medical History Medical History Right elbow pain Abnormal UGI series GERD (gastroesophageal reflux disease) Pernicious anemia Diabetic polyneuropathy associated with type 2 diabetes mellitus custodial (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 Mother No problems noted. 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 Oriented X3. No acute distress. Eyes: Pupils equal, round and reactive to light. ENT: Pharynx normal. Neck: Normal inspection. Neck supple. No lymph nodes noted. No crepitus, palpable muscle spasms on the right side of the neck. CVS: Normal heart rate and rhythm. Pulses normal. Normal S1 and S2 Respiratory: No respiratory distress. Breath sounds normal. No Wheezing. No rales Abdomen: Soft and nontender. No rigidity. No distention. Skin: Skin warm and dry. Normal skin color. Normal skin turgor. Extremities: No lower extremity edema. No Lacerations. No Rash Neuro: Oriented X 3. No motor deficit. No sensory deficit. Moving all extremities. No slurred speech. CN 2 through 12 grossly intact Psych: calm, cooperative, normal affect Medications Administered Discontinued Medications Generic Name Dose Route Start Last Admin Trade Name Freq PRN Reason Stop Dose Admin Acetaminophen 975 mg 07/08/23 02:57 07/08/23 03:03 Acetaminophen 325 Mg Tablet PO 07/08/23 02:58 975 mg ONCE ONE Administration Cyclobenzaprine HCl 10 mg 07/08/23 02:57 07/08/23 03:03 Cyclobenzaprine Hcl 10 Mg Tablet PO 07/08/23 02:58 10 mg ONCE ONE Administration Medical Decision Making Medical Decision Making [facility] Narrative: On arrival patient was given acetaminophen and cyclobenzaprine. Minimal relief. -patient then was given IM ketorolac and diazepam. Patient feeling better. -patient likely has torticollis -patient has no neck stiffness with flexion-extension, meningitis not suspected. -no C-spine tenderness, imaging not indicated Discharge Plan Discharge Clinical Impression: Acute torticollis Patient Disposition: Home, Self-Care Instructions: Neck Pain (ED) Additional Instructions: Please follow-up with your primary care physician tomorrow. If you have any worsening or new symptoms, please return to the emergency room or call 911 Prescriptions: New diazepam 2 mg tablet 2 mg PO BEDTIME PRN (Reason: muscle pain) Qty: 3 0RF ketorolac 10 mg tablet 10 mg PO TID PRN (Reason: pain) Qty: 7 0RF Rx Instructions: Do not use this medication with ibuprofen, only Tylenol if needed No Action (DME) lancets 33 gauge misc See Rx Instructions Not Applicable QID Qty: 100 10RF Rx Instructions: As directed daily (DME) blood-glucose meter [FreeStyle [place] Lite] Kit See Rx Instructions .ROUTE .MEDSUPPLY Qty: 1 0RF Rx Instructions: As directed 3x/day (DME) FreeStyle Lite Strips Strip See Rx Instructions .ROUTE .MEDSUPPLY Qty: 100 11RF Rx Instructions: As directed three times a day (DME) lancets [FreeStyle Lancets] 28 gauge misc See Rx Instructions .ROUTE .MEDSUPPLY Qty: 100 11RF Rx Instructions: Three times a day (DME) pen needle, diabetic 32 gauge x 5/32 needle See Rx Instructions .ROUTE DIRECTED Qty: 100 6RF Rx Instructions: daily ezetimibe 10 mg tablet 10 mg PO DAILY 90 Days Qty: 90 1RF atorvastatin 80 mg tablet 80 mg PO BEDTIME 90 Days Qty: 90 1RF simethicone 180 mg capsule 180 mg PO BID PRN (Reason: for cramps) Qty: 60 2RF Trulicity 4.5 mg/0.5 mL pen injector 4.5 mg subcut QWEEK Qty: 2 1RF Repatha SureClick 140 mg/mL pen injector 140 mg subcut Q2W 30 Days Qty: 3 6RF Invokamet XR 50-500 mg tablet, IR - ER, biphasic 24hr 2 tab PO DAILY 30 Days Qty: 60 6RF pantoprazole 40 mg tablet,delayed release (DR/EC) 40 mg PO DAILY Qty: 90 2RF Rx Instructions: take one tablet half an hour before breakfast docusate sodium 100 mg capsule 100 mg PO BEDTIME Qty: 90 3RF sennosides [Natural Senna Laxative] 8.6 mg tablet 8.6 mg PO BEDTIME Qty: 90 3RF fenofibrate 54 mg tablet 54 mg PO DAILY 90 Days Qty: 90 2RF cholecalciferol (vitamin D3) 25 mcg (1,000 unit) capsule 25 mcg PO DAILY 30 Days Qty: 30 6RF cyanocobalamin (vitamin B-12) 1,000 mcg tablet, sublingual 1,000 mcg sublingual DAILY 30 Days Qty: 30 6RF lisinopril 5 mg tablet 5 mg PO DAILY 90 Days Qty: 90 1RF insulin glargine U-300 conc 300 unit/mL (1.5 mL) insulin pen 50 unit subcut QAM 90 Days Qty: 15.003 6RF ropinirole 0.25 mg tablet 0.25 mg PO BEDTIME Qty: 30 0RF Rx Instructions: administer 1-3 hours before bedtime (DME) FreeStyle Precision Jarod Strips Strip See Rx Instructions .ROUTE .MEDSUPPLY Qty: 100 11RF Rx Instructions: As directed three times a day sucralfate 100 mg/mL suspension 10 ml PO BEDTIME Qty: 400 3RF
[2023-07-08] MEDS: diazePAM 2 MG TABLET PO (05:05)
[2023-07-08] MEDS: Ketorolac Tromethamine 60 MG/2 ML VIAL IM (05:05)
[2023-07-08 06:15] VITALS: BP 144/73; PULSE 88; RESP 18; O2SAT 98
== END 2023-07-08 06:15 | disposition home or self-care (01) ==
PROVIDERS: Emergency Provider Emergency Medicine; PCP Internal Medicine
DX: M43.6 Torticollis (principal); M54.2 Cervicalgia; E11.42 Type 2 diabetes mellitus with diabetic polyneuropathy; I10 Essential (primary) hypertension; E78.5 Hyperlipidemia, unspecified; Z79.85 Long-term (current) use of injectable non-insulin antidiabetic drugs; Z79.84 Long term (current) use of oral hypoglycemic drugs; Z79.02 Long term (current) use of antithrombotics/antiplatelets; Z79.899 Other long term (current) drug therapy
CPT/HCPCS: 96372; 99284; J1885

== ENCOUNTER 2023-12-13 08:07 | Outpatient (REF) | payer OTHER, SELFPAY ==
[2023-12-13 10:02] LABS: Alanine Aminotransferase 58 U/L (0-31); Albumin Level 4.6 g/dL (3.5-5.0); Alkaline Phosphatase 123 U/L (39-117); Anion Gap 17 (12-20); Aspartate Amino Transferase 28 U/L (5-31); Bilirubin Total 0.5 mg/dL (0.0-1.0); Blood Urea Nitrogen 21 mg/dL (9-16); Calcium 10.4 mg/dL (8.4-10.2); Carbon Dioxide 24 mmol/L (22-29); Chloride 98 mmol/L (96-108); Cholesterol 300 mg/dL (<200); Estimated Glomerular Filt Rate 51; Glucose Fasting 283 mg/dL (60-99); HDL Cholesterol 46 mg/dL (>40); Sodium 135 mmol/L (135-145); Triglycerides 538 mg/dL (<150)
[2023-12-13 10:51] LABS: Creatinine Urine 43.62 mg/dL; Microalbum/Creatinine Ratio Ur 25.2 ug/mg cr (<30)
[2023-12-17 00:19] LABS: Lipoprotein Asso Phospholip A2 146 (<124)
[2023-12-20 16:08] LABS: Apolipoprotein B 200 mg/dL (<90)
== END 2023-12-13 08:08 | disposition home or self-care (01) ==
LOC: HO.LAB 08:07
PROVIDERS: PCP Internal Medicine; Visit Provider Internal Medicine
DX: E78.01 Familial hypercholesterolemia (principal); E78.5 Hyperlipidemia, unspecified; E11.9 Type 2 diabetes mellitus without complications
CPT/HCPCS: 36415; 80053; 80061; 82043; 82172; 82570; 83698

== ENCOUNTER 2023-12-14 12:22 | Outpatient (REF) | payer OTHER, SELFPAY | END 2023-12-14 12:23 | disposition home or self-care (01) | LOC: HO.LNP 12:22 | PROVIDERS: Visit Provider Internal Medicine | DX: E78.01 Familial hypercholesterolemia (principal) | CPT/HCPCS: 82710 ==

== ENCOUNTER 2023-12-16 13:40 | Outpatient (AMB) | payer OTHER, SELFPAY ==
--- NOTE | 2023-12-16 13:55 | A.OFFPC_ITS ---
Vital Signs 12/16/23 13:56 Height 5 ft 5 in Weight 160 lb BMI 26.6 BP 130/70 Blood Pressure Location Lt brachial Position Sitting Intake Visit Reasons: pe Intake Note: Patient here for a physical exam Special Certificate Dictator Required: No Accompanied by: niece Allergies No Known Allergies [No Known Allergies*] Allergy (Verified 12/16/23 14:34) Medication List - Last Reconciled 12/16/23 by Meg Faustin MD atorvastatin 80 mg PO BEDTIME 90 days blood sugar diagnostic (FreeStyle Lite Strips) As directed three times a day blood sugar diagnostic (FreeStyle Precision Jarod Strips) As directed three times a day blood-glucose meter (FreeStyle [place] Lite kit) As directed 3x/day canagliflozin-metformin 50-500 mg ER (Invokamet XR) 2 tabs (2 x 50-500 mg) PO DAILY 30 days cholecalciferol (vitamin D3) 25 mcg PO DAILY 30 days cyanocobalamin (vitamin B-12) 1,000 mcg sublingual DAILY 30 days diazepam 2 mg PO BEDTIME PRN docusate sodium 100 mg PO BEDTIME dulaglutide (Trulicity) 4.5 mg (0.5 mL) subcut QWEEK evolocumab (Repatha SureClick) 140 mg subcut Q2W 30 days ezetimibe 10 mg PO DAILY 90 days fenofibrate 54 mg PO DAILY 90 days insulin glargine U-300 conc 50 units (0.1667 mL) subcut QAM 90 days ketorolac 10 mg PO TID PRN lancets As directed daily lancets (FreeStyle Lancets) Three times a day lisinopril 5 mg PO DAILY 90 days pantoprazole 40 mg PO DAILY pen needle, diabetic daily ropinirole 0.25 mg PO BEDTIME sennosides (Natural Senna Laxative) 8.6 mg PO BEDTIME simethicone 180 mg PO BID PRN sucralfate 10 mL PO BEDTIME Tobacco use date assessed: 12/16/23 Fall risk assessment: No Falls in past year Last assessed Fall Risk: 12/16/23 Dental Screening Dental Screen Date: 12/16/23 Did you have a dental visit in the last 12 months?: No Did you have a dental problem in the last 6 months where you did not have access to dental care?: No Was dental information given to patient?: Patient has dentist HPI HPI Comments History of Present Illness Details This is a 63-year-old female with diabetes mellitus type 2 on long-term current use of insulin with hyperglycemia that comes accompanied by niece for her physical exam. Mammogram done over a year ago and I will order another mammogram. No need for Pap smear due to hysterectomy. Last colonoscopy was last year showing tubular adenoma. Last diabetic eye exam was less than a year ago. A1c not on goal and I will increase insulin. LDL not on goal but she admits not being compliant with statins and fibrates or low-cholesterol diet. Complains of occasional chest pain that happens at rest. Also complains of bilateral shoulder pain and I will order x-rays and start her on physical therapy. [facility] Medical History (Updated 12/17/23 @ 07:09 by Meg Faustin MD) Right elbow pain Abnormal UGI series GERD (gastroesophageal reflux disease) Pernicious anemia Diabetic polyneuropathy associated with type 2 diabetes mellitus half-way (current) use of insulin Diabetes type 2, uncontrolled Hypovitaminosis D Right shoulder pain Dyslipidemia Diabetes Hypertension Surgical History History of esophagogastroduodenoscopy (EGD) Hx of colonoscopy History of hemicolectomy History of appendectomy H/O: hysterectomy H/O tubal ligation Family History Father No problems noted. Mother No problems noted. Maternal Aunt Cancer Sister Breast cancer Social History Household Members: Spouse Housing: Apartment Alcohol intake: never Patient Tobacco Use Status: Never used Tobacco e-Cigarette/Vaping Use: Never Used Second Hand Smoke Exposure: Yes service: No Current occupational status: employed Current occupation: [employer] Current occupational exposures/hazards: No Cognitive needs: No Hearing needs: No Vision needs: No Questionnaire PHQ-9 Over the last 2 weeks, how often have you been bothered by any of the following problems? 1. Little interest or pleasure in doing things: not at all 2. Feeling down, depressed, or hopeless: not at all 3. Trouble falling or staying asleep, or sleeping too much: not at all 4. Feeling tired or having little energy: not at all 5. Poor appetite or overeating: not at all 6. Feeling bad about yourself - or that you are a failure or have let yourself or your family down: not at all 7. Trouble concentrating on things, such as reading the newspaper or watching television: not at all 8. Moving or speaking so slowly that other people could have noticed. Or the opposite - being so fidgety or restless that you have been moving around a lot more than usual: not at all 9. Thoughts that you would be better off or of hurting yourself in some way: not at all Total score: 0 Depression Screening Interpretation: Negative Depression Screening Done: Yes 86488 - PHQ-9 Billing: Yes Source: Developed by Drs. Haris Larose, Andria Alonso, Sav Toribio and colleagues, with an educational andrew from [employer]. Thrive Questionnaire Date Thrive assessed: 08/13/22 I am a: Patient What is your living situation today?: I have a steady place to live Within the past 12 months, did the food you bought not last and you didn't have the money to get more?: Never true Within the past 12 months, did you worry whether your food would run out before you got money to buy more?: Never true Do you have trouble paying for medicines?: No Do you have trouble getting transportation to medical appointments?: No Do you have trouble paying your heating and electricity bill?: No Do you have trouble taking care of your child, family member or friend?: No Do you have trouble with day-to-day activities such as bathing, preparing meals, shopping, managing finances, etc.?: No Are you currently unemployed and looking for a job?: No Are you interested in more education?: No Please select the resources that you would like help with: None Currently or been in a relationship where the following occur: No concerns reported THRIVE Score: 0 AUDIT C Alcohol Use Questionnaire (AUDIT-C) 1. How often do you have a drink containing alcohol?: Never Total Score: 0 Score Reviewed/Action Taken: No JOVANA-7 AMB Questionnaire JOVANA-7 Date JOVANA - 7 assessed: 12/16/23 Feeling nervous, anxious, or on edge: 0 = Not at all Not being able to stop or control worryin = Not at all Worrying too much about different things: 0 = Not at all Trouble relaxin = Not at all Being so restless that it is hard to sit still: 0 = Not at all Becoming easily annoyed or irritable: 0 = Not at all Feeling afraid as if something awful might happen: 0 = Not at all Total JOVANA-7 score (0-4 normal; 5-9 mild; 10-14 moderate; 15-21 severe): 0 Source: Developed by Drs. Haris Larose, Andria Alonso, Sav Toribio and colleagues, with an educational andrew from [employer]. JOVANA-7 Assessment Billing JOVANA-7 Assessment Tool: JOVANA-7 Assessment 09624 Review of Systems Const All systems reviewed & are unremarkable except as noted in HPI and below Card Reports chest pain at rest, Denies chest pain with activity, Denies edema, Denies irregular heart rhythm, Denies claudication, Denies dyspnea, Denies dyspnea on exertion, Denies orthopnea, Denies paroxysmal nocturnal dyspnea and Denies slow heart rate Resp Denies cough, Denies dyspnea and Denies dyspnea on exertion GI Denies abdominal pain, Denies change in bowel habits, Denies excessive flatus, Denies nausea and Denies vomiting Denies urinary incontinence, Denies urinary hesitancy and Denies urinary urgency Musc Reports arthralgias Neuro Denies behavioral changes, Denies confusion and Denies lack of coordination Psych Denies behavioral changes and Denies confusion Physical exam (Primary Care) Vital Signs: Last Vital Signs BP 130/70 12/16/23 13:56 BMI result Body Mass Index 26.6 Tobacco/Smoking Status: Tobacco use Status Tobacco use date assessed 12/16/23 12/16/23 14:03 Patient Tobacco Use Status Never used Tobacco 12/16/23 13:58 e-Cigarette/Vaping Use Never Used 12/16/23 13:58 PHQ-9: PHQ-9 Score PHQ-9: Total score 0 12/16/23 15:02 Depression Screening Interpretation: Negative Thrive Assessment: Date of Thrive Assessment Date Thrive assessed 08/13/22 12/16/23 13:58 Currently or been in a relationship where the following occur: No concerns reported Const General: No confusion Orientation/consciousness: patient oriented x3 and No confusion HENMT Head: Yes normal to inspection, Yes normocephalic and Yes atraumatic Ears: external ears normal Eyes General: appearance normal, both eyes and all related structures Eyelids: Yes eyelids normal Conjunctivae: conjunctivae normal Neck Neck: Yes normal visual inspection and Yes supple Resp Effort & Inspection: normal respiratory effort Auscultation: clear to auscultation bilaterally Cardio Jugular venous distension: no JVD Rate: regular rate Rhythm: regular rhythm Heart sounds: S1 normal heart sound present and S2 normal heart sound present GI Inspection: Yes normal to inspection Palpation (GI): Soft to palpation and nontender Auscultation: normal bowel sounds Skin General skin exam: no rashes or lesions noted Neuro General: patient oriented x3, no focal motor deficits and No confusion Extrem General: Yes full ROM Psych Appearance: grossly normal Results AMB Hemoglobin A1c AMB Hemoglobin A1c 10.0 % Last Edit by HERBERT Rodriguez on 12/16/23 14: 09 Results Reviewed Results Reviewed: Laboratory Last Values Hgb A1c (Clinic) 10.0 % (4.0-6.0) H 12/16/23 13:55 Assessment and Plan Assessment & Plan (1) Physical exam: Code(s): Z00.00 - Encounter for general adult medical examination without abnormal findings Plan: Repeat in a year. 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 A1c goal is equal or less than 7%. (3) Right shoulder pain: Code(s): M25.511 - Pain in right shoulder Qualifiers: Chronicity: chronic Qualified Code(s): M25.511 - Pain in right shoulder; G89.29 - Other chronic pain Plan: X-ray ordered. Start physical therapy. (4) Left shoulder pain: Code(s): M25.512 - Pain in left shoulder Qualifiers: Chronicity: chronic Qualified Code(s): M25.512 - Pain in left shoulder; G89.29 - Other chronic pain Plan: X-ray ordered. Start physical therapy. (5) Chest pain: Code(s): R07.9 - Chest pain, unspecified Qualifiers: Chest pain type: precordial pain Qualified Code(s): R07.2 - Precordial pain Plan: EKG ordered. Orders: Orders Complete Blood Count Auto Diff 4 Months D64.9 - Anemia, unspecified Vitamin B12 and Folate 4 Months E53.8 - Deficiency of other specified B group vitamins Vitamin D 25-OH Total 4 Months E55.9 - Vitamin D deficiency, unspecified Comprehensive Branch. Panel Fast 4 Months E11.65 - Type 2 diabetes mellitus with hyperglycemia, Z79.4 - half-way (current) use of insulin AMB Hemoglobin A1c 12/16/23 E11.65 - Type 2 diabetes mellitus with hyperglycemia, Z79.4 - half-way (current) use of insulin ECG 12 lead EKG 12/16/23 R07.9 - Chest pain, unspecified MM screening mammo BI 12/16/23 Z12.31 - Encounter for screening mammogram for malignant neoplasm of breast Lipid Panel 4 Months E78.5 - Hyperlipidemia, unspecified Microalbumin, Random (w Creat) 4 Months E11.9 - Type 2 diabetes mellitus without complications IRON PROFILE 4 Months D64.9 - Anemia, unspecified XR shoulder LT min 2V Today M25.512 - Pain in left shoulder XR shoulder RT min 2V Today M25.511 - Pain in right shoulder PT Evaluation and Treatment Today M25.511 - Pain in right shoulder, M25.512 - Pain in left shoulder Medications: Refilled atorvastatin 80 mg PO BEDTIME 90 days 90 tabs 1RF E78.5 - Hyperlipidemia, unspecified fenofibrate 54 mg PO DAILY 90 days 90 tabs 2RF E78.2 - Mixed hyperlipidemia dulaglutide (Trulicity) 4.5 mg (0.5 mL) subcut QWEEK 2 mL 1RF ezetimibe 10 mg PO DAILY 90 days 90 tabs 1RF E78.5 - Hyperlipidemia, unspecified Coding Level of Care Code Est Pt Level 4 (78949) Est Pt Prev Care 40-64y(51617) Diagnoses Physical exam Z00.00 Type 2 diabetes mellitus with hyperglycemia, with long-term current use of insulin E11.65; Z79.4 Chronic right shoulder pain M25.511; G89.29 Chronicity: chronic Chronic left shoulder pain M25.512; G89.29 Chronicity: chronic Precordial pain R07.2 Chest pain type: precordial pain Additional Codes JOVANA-7 Assessment Billing - JOVANA-7 Assessment Tool: JOVANA-7 Assessment 46323 ([id number]) Time Spent (min) 35
[2023-12-16 13:56] VITALS: BP 130/70; BMI 26.6
== END 2023-12-16 14:57 | disposition home or self-care (01) ==
PROVIDERS: PCP Internal Medicine; Visit Provider Internal Medicine
DX: E11.65 Type 2 diabetes mellitus with hyperglycemia (principal); Z79.4 Long term (current) use of insulin
CPT/HCPCS: 83036; 99214; 99396

== ENCOUNTER 2023-12-31 14:39 | Outpatient (REF) | payer OTHER, SELFPAY ==
--- NOTE | ~2023-12-31 | XR_ITS ---
EXAMINATION: XR SHOULDER, RIGHT XR SHOULDER, LEFT CLINICAL INFORMATION: Bilateral shoulder pain. COMPARISON: None available. TECHNIQUE: AP, Grashey, scapular Y, and axillary views of the right and left shoulder. FINDINGS: Right Shoulder: Lobulated calcification associated with the distal infraspinatus tendon measuring up to 1.9 cm, consistent with calcific tendinitis. Tiny glenohumeral marginal osteophytes. No osseous erosion. No fracture or dislocation. Left Shoulder: Soft tissue calcifications associated with the distal subscapularis tendon measuring up to 1.0 cm and supraspinatus tendon measuring up to 0.8 cm, consistent with calcific tendinitis. Mild acromioclavicular osteoarthritis. No concerning lytic or blastic osseous lesion. No fracture or dislocation. XR/XR shoulder RT min 2V IMPRESSION: RIGHT SHOULDER: Distal infraspinatus calcific tendinitis. Minimal glenohumeral arthrosis. LEFT SHOULDER: Calcific tendinitis within the distal subscapularis and supraspinatus tendons. Mild acromioclavicular osteoarthritis. Electronically signed by: Jorge Luis Matta MD 01/26/2024 09:43 PM EDT
--- NOTE | ~2023-12-31 | XR_ITS ---
EXAMINATION: XR SHOULDER, RIGHT XR SHOULDER, LEFT CLINICAL INFORMATION: Bilateral shoulder pain. COMPARISON: None available. TECHNIQUE: AP, Grashey, scapular Y, and axillary views of the right and left shoulder. FINDINGS: Right Shoulder: Lobulated calcification associated with the distal infraspinatus tendon measuring up to 1.9 cm, consistent with calcific tendinitis. Tiny glenohumeral marginal osteophytes. No osseous erosion. No fracture or dislocation. Left Shoulder: Soft tissue calcifications associated with the distal subscapularis tendon measuring up to 1.0 cm and supraspinatus tendon measuring up to 0.8 cm, consistent with calcific tendinitis. Mild acromioclavicular osteoarthritis. No concerning lytic or blastic osseous lesion. No fracture or dislocation. XR/XR shoulder LT min 2V IMPRESSION: RIGHT SHOULDER: Distal infraspinatus calcific tendinitis. Minimal glenohumeral arthrosis. LEFT SHOULDER: Calcific tendinitis within the distal subscapularis and supraspinatus tendons. Mild acromioclavicular osteoarthritis. Electronically signed by: Jorge Luis Matta MD 01/26/2024 09:43 PM EDT
== END 2023-12-31 14:40 | disposition home or self-care (01) ==
LOC: HO.XRAY 14:39
PROVIDERS: PCP Internal Medicine; Visit Provider Internal Medicine
DX: M25.512 Pain in left shoulder (principal); M25.511 Pain in right shoulder
CPT/HCPCS: 73030

== ENCOUNTER → 2024-02-25 12:37 | Outpatient (REF) | payer OTHER, SELFPAY ==
--- NOTE | 2024-02-25 12:43 | ECG_ITS ---
Test Reason : PRECORDIAL PAIN Blood Pressure : / mmHG Vent. Rate : 080 BPM Atrial Rate : 080 BPM P-R Int : 146 ms QRS Dur : 070 ms QT Int : 380 ms P-R-T Axes : 060 037 015 degrees QTc Int : 438 ms Normal sinus rhythm Normal ECG When compared with ECG of 25-APR-2020 14:07, No significant change was found Referred By: Meg Faustin Electronically Signed By:NUSRAT MCKEON MD
== END ==
LOC: HO.CARD 12:37
PROVIDERS: PCP Internal Medicine; Visit Provider Internal Medicine
DX: R07.2 Precordial pain (principal)
CPT/HCPCS: 93005

== ENCOUNTER → 2024-02-25 12:43 | Outpatient (BNV) | payer OTHER, SELFPAY | PROVIDERS: PCP Internal Medicine; Visit Provider Internal Medicine Cardiovascular Disease | DX: R07.2 Precordial pain (principal) | CPT/HCPCS: 93010 ==

== ENCOUNTER 2024-03-17 04:22 | Emergency (ER) | payer OTHER, SELFPAY ==
--- NOTE | ~2024-03-17 | XR_ITS ---
EXAMINATION: XR SHOULDER, RIGHT CLINICAL INFORMATION: Unable to lift arm. COMPARISON: None available. TECHNIQUE: AP external rotation, Grashey, scapular Y, and axillary views of the right shoulder. FINDINGS: Prominent amorphous dystrophic calcifications are present adjacent to the greater tuberosity of the right humeral head. Normal glenohumeral and acromioclavicular joint space and alignment. Normal appearance of the visualized right ribs and lung. No fracture is noted. XR/XR shoulder RT min 2V IMPRESSION: Prominent chronic calcific tendinosis of the rotator cuff. Prominent amorphous calcifications are present in the region of the distal supraspinatus tendon adjacent to the greater tuberosity of the humeral head suspicious for chronic calcific tendinosis. Electronically signed by: Oliverio Bowen MD 03/17/2024 05:46 AM EDT
[2024-03-17 04:23] VITALS: BP 141/73; PULSE 92; RESP 18; TEMP 2.5; TEMP 36.5; O2SAT 99; BMI 25.3
--- NOTE | 2024-03-17 05:13 | PC.NURSE ---
pt from lobby, assume care of pt at this time. Pt c/o of right shoulder pain, hurts to move it. Pt given a pillow to rest her right arm on. Pt given Ice pack for right shoulder.
[2024-03-17 06:05] VITALS: BP 114/59; PULSE 93; RESP 16; TEMP 36.8; O2SAT 97
--- NOTE | 2024-03-17 06:56 | PC.NURSE ---
report given to Liane SANTIAGO
--- NOTE | 2024-03-17 07:00 | ECG_ITS ---
Test Reason : shoulder pain Blood Pressure : / mmHG Vent. Rate : 079 BPM Atrial Rate : 079 BPM P-R Int : 152 ms QRS Dur : 070 ms QT Int : 398 ms P-R-T Axes : 015 020 018 degrees QTc Int : 456 ms Normal sinus rhythm Low voltage QRS Borderline ECG When compared with ECG of 25-FEB-2024 12:41, No significant change was found Referred By: Mesha Franklin Electronically Signed By:SLAVA OLIVO
--- NOTE | 2024-03-17 07:06 | ED_ITS ---
HPI - Extremity Problem General Chief complaint: Extremity Injury, Upper Stated complaint: pain right shoulder Time Seen by Provider: 03/17/24 06:37 Source: patient, RN notes reviewed and old records reviewed Mode of arrival: ambulatory History of Present Illness ED Provider: Mesha Franklin PA-C HPI Narrative: 63-year-old Moroccan-speaking female with a past medical history of GERD, pernicious anemia, diabetes, HLD, HTN, presenting to the ED complaining of atraumatic right shoulder pain x1 week with radiation to right neck, worse with movement. Reports decreased ROM secondary to pain. 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 Reports associated paresthesias to right 5th digit. Denies weakness, headache, vision change or loss, CP/SOB Related Data Previous Rx's ?Medication ?Instructions ?Recorded lancets 33 gauge #100 ea 12/18/20 blood sugar diagnostic (FreeStyle #100 ea 04/08/21 Precision Jarod Strips) blood sugar diagnostic (FreeStyle #100 ea 04/23/21 Lite Strips) blood-glucose meter (FreeStyle #1 ea 04/23/21 Meno Lite kit) lancets 28 gauge (FreeStyle #100 ea 04/23/21 Lancets) simethicone 180 mg capsule 180 mg PO BID PRN for cramps #60 01/20/22 caps evolocumab 140 mg/mL subcutaneous 140 mg subcut Q2W 30 days #3 mL 05/22/22 pen injector (Wes Fragoso) lisinopril 5 mg tablet 5 mg PO DAILY 90 days #90 tabs 08/13/22 sucralfate 100 mg/mL oral 10 ml PO BEDTIME #400 mL 11/27/22 suspension ropinirole 0.25 mg tablet 0.25 mg PO BEDTIME #30 tabs 03/12/23 docusate sodium 100 mg capsule 100 mg PO BEDTIME #90 caps 06/03/23 sennosides 8.6 mg tablet (Natural 8.6 mg PO BEDTIME constipation #90 06/03/23 Senna Laxative) tabs diazepam 2 mg tablet 2 mg PO BEDTIME PRN muscle pain #3 07/08/23 tabs ketorolac 10 mg tablet 10 mg PO TID PRN pain #7 tabs 07/08/23 pen needle, diabetic 32 gauge x #100 ea 07/12/23 canagliflozin 50 mg-metformin ER 2 tab (2 x 50-500 mg) PO DAILY 30 10/06/23 500 mg tablet,extended release 24 days #60 ea hr (Invokamet XR) pantoprazole 40 mg tablet,delayed 40 mg PO DAILY #90 tabs 12/06/23 release atorvastatin 80 mg tablet 80 mg PO BEDTIME 90 days #90 tabs 12/16/23 ezetimibe 10 mg tablet 10 mg PO DAILY 90 days #90 tabs 12/16/23 fenofibrate 54 mg tablet 54 mg PO DAILY 90 days #90 tabs 12/16/23 insulin glargine U-300 conc 300 50 unit (0.1667 mL) subcut QAM 90 01/28/24 unit/mL (1.5 mL) subcutaneous pen days #15.003 mL cholecalciferol (vitamin D3) 25 25 mcg PO DAILY 30 days #30 caps 02/09/24 mcg (1,000 unit) capsule cyanocobalamin (vitamin B-12) 1,000 mcg sublingual DAILY 30 days 02/09/24 1,000 mcg sublingual tablet #30 tabs dulaglutide 4.5 mg/0.5 mL 4.5 mg (0.5 mL) subcut QWEEK #2 mL 02/18/24 subcutaneous pen injector (Trulicity) acetaminophen 500 mg tablet 500 mg PO Q6H PRN fever or pain 03/17/24 (Tylenol Extra Strength) #14 tabs cyclobenzaprine 5 mg tablet 5 mg PO Q8H PRN pain (scale score 03/17/24 7-10) 5 days #14 tabs lidocaine 5 % topical patch 1 patch topical DAILY PRN pain #30 03/17/24 (Lidoderm) ea naproxen 500 mg tablet 500 mg PO BID PRN pain 10 days #20 03/17/24 tabs Allergies Allergy/AdvReac Type Severity Reaction Status Date / Time No Known Allergies Allergy Verified 03/17/24 04:24 [No Known Allergies*] Review of Systems Review of Systems: Yes all other systems are reviewed and are negative Constitutional: Constitutional: Reports as per [facility] Past Medical History Attestation statement: The following information was validated with the patient. 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 Mother No problems noted. 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 Current occupational exposures/hazards: No Cognitive needs: No Hearing needs: No Vision needs: No Physical Exam Vital Signs: Vital Signs: Last Vital Signs Temp 98.3 F 03/17/24 06:05 Pulse 93 03/17/24 06:05 Resp 16 03/17/24 06:05 BP 114/59 L 03/17/24 06:05 Pulse Ox 97 03/17/24 06:05 O2 Del Method Room Air 03/17/24 06:05 BMI result Body Mass Index 25.3 Const: General: cooperative, healthy appearing and no acute distress Orientation/consciousness: patient oriented x3 Limitations: no limitations HEENT: Head: Yes normal to inspection and Yes atraumatic Ears: hearing grossly normal bilaterally General nose exam: Normal external nose present Face and sinus: Yes normal facial exam Eyes: General: appearance normal, both eyes and all related structures EOM: EOMs intact bilaterally Neck: Neck: Yes normal visual inspection and Yes no meningeal signs Resp: Effort & Inspection: normal respiratory effort and no respiratory distress Cardio: Rate: regular rate Peripheral pulses: Peripheral pulses 2+ throughout Back/Spine/Pelvis: Other: No midline cervical/thoracic/lumbar spinous tenderness/step-off or deformity Skin: Rashes: no rashes Wounds: no wounds Neuro: General: patient oriented x3, tone normal and no meningeal signs Cranial nerves: Yes CN's II-XII intact bilaterally Gait exam (Neuro): Normal gait present Extrem: Other: Right shoulder without noted deformity. Diffusely tender to palpation. + tenderness right trapezius muscle. Limited ROM to shoulder secondary to pain. Neurovascularly intact distally. General: Yes normal to inspection Course Course Course Narrative: XR shoulder RT min 2V IMPRESSION: Prominent chronic calcific tendinosis of the rotator cuff. Prominent amorphous calcifications are present in the region of the distal supraspinatus tendon adjacent to the greater tuberosity of the humeral head suspicious for chronic calcific tendinosis. Results discussed with patient including worrisome signs and symptoms and strict return precautions, and when to return to the emergency department. They verbalized understanding and feel safe for discharge at this time. Medications Administered Discontinued Medications Generic Name Dose Route Start Last Admin Trade Name Freq PRN Reason Stop Dose Admin Cyclobenzaprine HCl 10 mg 03/17/24 06:51 03/17/24 07:08 Cyclobenzaprine Hcl 10 Mg Tablet PO 03/17/24 06:52 10 mg ONCE ONE Administration Ketorolac Tromethamine 30 mg 03/17/24 06:51 03/17/24 07:08 Ketorolac Tromethamine 30 Mg/Ml Vial IM 03/17/24 06:52 30 mg ONCE ONE Administration Medical Decision Making Medical Decision Making [facility] Narrative: 63-year-old Moroccan-speaking female with a past medical history of GERD, pernicious anemia, diabetes, HLD, HTN, presenting to the ED complaining of atraumatic right shoulder pain x1 week with radiation to right neck, worse with movement. On exam vital signs stable, NAD, nontoxic appearing, physical exam as noted above. No midline spinous tenderness throughout. No evidence of trauma. Concern for MSK pain/strain vs tendinopathy. Lower suspicion for ACS, fracture, septic joint/arthritis, cervical dissection Plan: EKG, x-ray, pain control Please refer to course for remaining clinical decision making, interpretation of labs/imaging results, and discussions with consultants and/or family members. Differential Diagnosis Differential Diagnoses: The differential diagnosis associated with the pres entation includes As above Independent Interpretation I performed an independent interpretation of an: EKG (My interpretation EKG normal sinus rhythm rate of 79. MO interval 152. No significant change when compared to prior. No STEMI) and Plain X-Ray Radiology Impression Discussion of test interpretation with radiology: I have reviewed the radiologist's reading. Independent Historian Clinical information obtained from an independent historian. History obtained from or confirmed by: Spouse External Record Review External record reviewed: Inpatient record, Office record, Outpatient record, Prior outpatient labs, Prior outpatient radiology, Primary care record and Outside ED record Tests considered The following testing was considered but not selected: As above Prescription Management I considered prescription management with: Pain Medication Chronic Conditions Patient?s care impacted by: Hypertension Discharge Plan Discharge Clinical Impression: Calcific tendinitis Patient Disposition: Home, Self-Care Instructions: Tendinitis (ED) Additional Instructions: Your x-ray shows calcific tendinitis Please follow-up with your doctor as well as Orthopedics Flexeril is a muscle relaxer, take at night as it makes you drowsy, do not drive, drink alcohol, or operate machinery while taking it Naproxen as an anti-inflammatory / pain medication, take with food Lidoderm patches are numbing patches, apply to painful area In addition take Tylenol at home If symptoms persist or worsen, pain becomes unbearable, you developed urinary retention or incontinence, or weakness return to the ED Prescriptions: New acetaminophen [Tylenol Extra Strength] 500 mg tablet 500 mg PO Q6H PRN (Reason: fever or pain) Qty: 14 0RF lidocaine [Lidoderm] 5 % adhesive patch,medicated 1 patch topical DAILY MDD remove after 12 hours PRN (Reason: pain) Qty: 30 0RF Rx Instructions: leave on most painful area for up to 12 hrs naproxen 500 mg tablet 500 mg PO BID PRN (Reason: pain) 10 Days Qty: 20 0RF cyclobenzaprine 5 mg tablet 5 mg PO Q8H PRN (Reason: pain (scale score 7-10)) 5 Days Qty: 14 0RF No Action (DME) lancets 33 gauge misc See Rx Instructions Not Applicable QID Qty: 100 10RF Rx Instructions: As directed daily (DME) blood-glucose meter [FreeStyle Meno Lite] Kit See Rx Instructions .ROUTE .MEDSUPPLY Qty: 1 0RF Rx Instructions: As directed 3x/day (DME) FreeStyle Lite Strips Strip See Rx Instructions .ROUTE .MEDSUPPLY Qty: 100 11RF Rx Instructions: As directed three times a day (DME) lancets [FreeStyle Lancets] 28 gauge misc See Rx Instructions .ROUTE .MEDSUPPLY Qty: 100 11RF Rx Instructions: Three times a day simethicone 180 mg capsule 180 mg PO BID PRN (Reason: for cramps) Qty: 60 2RF Repatha SureClick 140 mg/mL pen injector 140 mg subcut Q2W 30 Days Qty: 3 6RF docusate sodium 100 mg capsule 100 mg PO BEDTIME Qty: 90 3RF sennosides [Natural Senna Laxative] 8.6 mg tablet 8.6 mg PO BEDTIME Qty: 90 3RF (DME) pen needle, diabetic 32 gauge x 5/32 needle See Rx Instructions .ROUTE DIRECTED Qty: 100 6RF Rx Instructions: daily Invokamet XR 50-500 mg tablet, IR - ER, biphasic 24hr 2 tab PO DAILY 30 Days Qty: 60 6RF pantoprazole 40 mg tablet,delayed release (DR/EC) 40 mg PO DAILY Qty: 90 2RF Rx Instructions: take one tablet half an hour before breakfast insulin glargine U-300 conc 300 unit/mL (1.5 mL) insulin pen 50 unit subcut QAM 90 Days Qty: 15.003 6RF cyanocobalamin (vitamin B-12) 1,000 mcg tablet, sublingual 1,000 mcg sublingual DAILY 30 Days Qty: 30 6RF cholecalciferol (vitamin D3) 25 mcg (1,000 unit) capsule 25 mcg PO DAILY 30 Days Qty: 30 6RF Trulicity 4.5 mg/0.5 mL pen injector 4.5 mg subcut QWEEK Qty: 2 1RF diazepam 2 mg tablet 2 mg PO BEDTIME PRN (Reason: muscle pain) Qty: 3 0RF ketorolac 10 mg tablet 10 mg PO TID PRN (Reason: pain) Qty: 7 0RF Rx Instructions: Do not use this medication with ibuprofen, only Tylenol if needed lisinopril 5 mg tablet 5 mg PO DAILY 90 Days Qty: 90 1RF atorvastatin 80 mg tablet 80 mg PO BEDTIME 90 Days Qty: 90 1RF ezetimibe 10 mg tablet 10 mg PO DAILY 90 Days Qty: 90 1RF fenofibrate 54 mg tablet 54 mg PO DAILY 90 Days Qty: 90 2RF ropinirole 0.25 mg tablet 0.25 mg PO BEDTIME Qty: 30 0RF Rx Instructions: administer 1-3 hours before bedtime (DME) FreeStyle Precision Jarod Strips Strip See Rx Instructions .ROUTE .MEDSUPPLY Qty: 100 11RF Rx Instructions: As directed three times a day sucralfate 100 mg/mL suspension 10 ml PO BEDTIME Qty: 400 3RF Referrals: [facility] [place] [facility] [Provider Group] - 1 week Meg Penn MD [Primary Care Provider] - Print Language: Moroccan
[2024-03-17] MEDS: Ketorolac Tromethamine 30 MG/ML VIAL IM (07:08)
[2024-03-17] MEDS: Cyclobenzaprine HCl 10 MG TABLET PO (07:08)
[2024-03-17 08:00] VITALS: BP 120/62; PULSE 86; RESP 16; TEMP 36.8; O2SAT 98
== END 2024-03-17 08:01 | disposition home or self-care (01) ==
PROVIDERS: Emergency Provider Emergency Medicine Emergency Medical Services; PCP Internal Medicine
DX: M75.31 Calcific tendinitis of right shoulder (principal); I10 Essential (primary) hypertension; R94.31 Abnormal electrocardiogram [ECG] [EKG]; M25.511 Pain in right shoulder
CPT/HCPCS: 73030; 93005; 96372; 99284; 99285; J1885

== ENCOUNTER → 2024-03-17 07:00 | Outpatient (BNV) | payer OTHER, SELFPAY | PROVIDERS: Emergency Provider Emergency Medicine Emergency Medical Services; PCP Internal Medicine; Visit Provider Internal Medicine | DX: R94.31 Abnormal electrocardiogram [ECG] [EKG] (principal); M25.511 Pain in right shoulder | CPT/HCPCS: 93010 ==

== ENCOUNTER 2024-06-19 09:01 | Outpatient (REF) | payer OTHER, SELFPAY ==
[2024-06-19 09:14] LABS: MANUAL DIFF FLAG NO
--- OUTSIDE RECORDS SUMMARY | 2024-06-19 09:22 | XMS_ITS | Clinical Summary ---
Author Organization [facility] Address [address] [place] [address] Care Team Providers Care Chartered Wealth Manager Name Role Phone Unavailable Primary Care Provider Unavailabl e Allergies No known active allergies Medications No known medications Active Problems Problem Noted Date Diagnosed Date Periodontal disease 04/18/2024 Encounters Date Type Department Care Team Description 04/18/2024 11:30 AM EST Office Visit [facility] [address] [place] [address] Rufino Tobar DDS Periodontal disease (Primary Dx) from Last 3 Months Immunizations Name Administration Dates Next Due Influenza injectable quadriv alent IIV4 with preservative 04/16/2017,01/30/2016 Influenza injectable quadriv alent preservative free 03/24/2022,02/24/2021,03/26/2020,04/17,03/31/2018 Influenza, IIV3, injectable 05/29/2015 Pneumococcal Polysaccharide PPSV23 04/16/2017 Tdap 07/16/2016 Social History Tobacco Use Types Packs/Day Years Used Date Smoking Tobacco: Never Passive Smoke Exposure: Never Smokeless Tobacco: Never Tobacco Cessation:Counseling Given: No Alcohol Use Standard Drinks/Week Comments Never 0 (1 standard drink = 0.6 oz pur e alcohol) Comments Unknown Sex and Gender Information Value Date Recorded Sex Assigned at Female 03/16/2022 10:32 AM EDT Legal Sex Female 10:32 AM EDT Gender Identity Choose not to disclose 10:32 AM EDT Sexual Orientation Choose not to disclose 2021 10:32 AM EDT Last Filed Vital Signs Vital Sign Reading Time Taken Comments Blood Pressure 120/72 04/18/2024 11:51 AM EST Pulse - - Temperature - - Respiratory Rate - - Oxygen Saturation - - Inhaled Oxygen Concentration - - Weight - - Height - - Body Mass Index - - Plan of Treatment Health Maintenance Due Date Last Done Comments CT Colonography 1959 Colonoscopy 1959 Colorectal Cancer Screening 1959 Depression Screening 1959 FIT DNA/Cologuard 1959 FIT 1959 FOBT 1959 HIV Screening 1959 SDOH Screening 1959 Sigmoidoscopy 1959 Alcohol/Substance Use Screening 1971 Hepatitis C Screening 08/12/1977 Pap Smear 08/12/1980 Cervical Cancer Screening 08/12/1989 HPV/Cotest 08/12/1989 Mammogram 1999 Zoster Vaccines (1 of 2) 08/12/2009 Dental Oral Exam 10/14/2017 04/15/2017 Dental X-Ray: Bitewings 04/16/2018 04/15/2017 Pneumococcal Vaccine: 50+ Years (2 of 2 - PCV) 04/16/2018 04/16/2017 Dental Prophylaxis 07/15/2018 01/11/2018, 07/13/2017 COVID-19 Vaccine ( season) 2024 04/02/2022, 10/10/2020, 09/12/2020 Influenza Vaccine (#1) 2024 , 03/24/2022, 02/24/2021, Additional history exists Tobacco Screening 04/18/2025 04/18/2024 DTaP/Tdap/Td Vaccines (2 - Td or Tdap) 07/16/2026 07/16/2016 Dental X-Ray: Full Mouth 04/19/2027 04/18/2024, 03/19 RSV Patients and Patients Aged 60 years or older (1 - 1-dose 75+ series) 08/12/2034 HIB Vaccines Aged Out No longer eligi ble based on patient's age to complete this topic HPV Vaccines Aged Out No longer eligi ble based on patient's age to complete this topic Hepatitis A Vaccines Aged Out No long er eligible based on patient's age to complete this topic Hepatitis B Vaccines Aged Out No long er eligible based on patient's age to complete this topic IPV Vaccines Aged Out No longer eligi ble based on patient's age to complete this topic Meningococcal Vaccine Aged Out No cricket pat eligible based on patient's age to complete this topic RSV under 20 months Aged Out No longe r eligible based on patient's age to complete this topic Rotavirus Vaccines Aged Out No longer eligible based on patient's age to complete this topic Procedures Procedure Name Priority Date/Time Associated Diagnosis Comments ADJUNCTIVE GENERAL SERVICES - PROFESSIONAL VISITS - CASE PRESENTATION, SUBSEQUENT TO DETAILED AND EXTENSIVE TREATMENT PLANNING Routine 04/18/2024 11:30 AM EST 22 EXTRACTION, ERUPTED TOOTH OR EXPOSED ROOT (ELEVATION AND/OR FORCEPS REMOVAL) Routine 04/18/2024 11:30 AM EST ADJUNCTIVE GENERAL SERVICES - UNCLASSIFIED TREATMENT - PALLIATIVE TREATMENT OF DENTAL PAIN - PER VISIT Routine 04/18/2024 11:30 AM EST PANORAMIC RADIOGRAPHIC IMAGE Routine 04/18/2024 11:30 AM EST PROPHYLAXIS - ADULT Routine 01/11/2018 1 2:00 AM EDT DIAGNOSTIC - DIAGNOSTIC IMAGING - INTRAORAL - COMPREHENSIVE SERIES OF RADIOGRAPHIC IMAGES Routine 04/15/2017 12:00 AM EST COMPREHENSIVE ORAL EVALUATION - NEW OR ESTABLISHED PATIENT Routine 04/15/2017 12:00 AM EST from Last 3 Months or Most Recently Relevant to Health Maintenance Insurance [facility] STAND ADULT
--- OUTSIDE RECORDS SUMMARY | 2024-06-19 09:22 | XMS_ITS | Clinical Summary ---
Author Organization [facility] Address [address] [place] [address] Care Team Providers Care Husbandry Person Name Role Phone Unavailable Primary Care Provider Unavailabl e Source Comments PLEASE NOTE, if this patient is a minor, it may be UNLAWFUL to discuss sensitive information that is contained in these records (such as FAMILY PLANNING, MENTAL HEALTH or SUBSTANCE ABUSE) with the minor patient's parent or other person without the patient's specific authorization.[facility] Immunizations Name Administration Dates Next Due Moderna COVID-19 Vaccine, re d cap blue label, 12+ Primary Series 10/10/2020,09/12/2020 Social History Tobacco Use Types Packs/Day Years Used Date Smoking Tobacco: Never Assessed Social Connections Answer Date Recorded Social Connections and Isolation 0 10/15/2023 Financial Resource Strain Answer Date R ecorded Financial Resource Strain 0 2023 Stress Answer Date Recorded Stress 0 10/15/2023 Physical Activity Answer Date Recorded Physical Activity 0 10/15/2023 Food Insecurity Answer Date Recorded Food 0 10/15/2023 Transportation Needs Answer Date Record ed Transportation 0 10/15/2023 Housing Stability Answer Date Recorded Housing 0 10/15/2023 Safety and Environment Answer Date Malcolm rded Safety 0 10/15/2023 Utilities Answer Date Recorded Utilities 0 10/15/2023 Employment Answer Date Recorded Employment 0 10/15/2023 Comments Unknown Sex and Gender Information Value Date Recorded Sex Assigned at Not on file Legal Sex Female 1:22 PM PDT Gender Identity Not on file Sexual Orientation Not on file Plan of Treatment Health Maintenance Due Date Last Done Comments Diabetes Screening 1959 HPV Screening 1959 Hepatitis C Screening 1959 Lipid Screening 1959 Pap + HPV 1959 Tobacco Screening 1959 HIV Screening 08/12/1974 Annual Preventive Care Visit 08/12/1977 Hypertension Screening (#1) 08/12/1977 Cervical Cancer Screening 08/12/1980 Pap Smear 08/12/1980 Breast Cancer Screening (Mammogram) 1999 CT Colonography 08/12/2004 Colonoscopy 08/12/2004 Colorectal Cancer Screening 08/12/2004 FIT/gFOBT 08/12/2004 Fecal DNA 08/12/2004 Flexible Sigmoidoscopy 08/12/2004 Imm-Zoster, Recombinant (1 of 2) 08/12/2009 [id number] ( season) 2024 021, 09/12/2020 Imm-Influenza (#1) 2024 03/26/2020, 1 06/18/2018, 03/31/2018, Additional history exists Alcohol and Drug Screen 05/17/2024 Depression Annual Screen 05/17/2024 Imm-DTaP/Tdap/Td (2 - Td or Tdap) 07/16/2026 017 Cervical Ablation/Cold-Knife Conization Discontinued Cervical Cryotherapy Discontinued Colposcopy Discontinued Endometrial Biopsy Discontinued Excision/Leep Discontinued HPV Genotyping Discontinued Vaginal Pap Discontinued Vulvoscopy Discontinued Insurance [employer] Member Subscriber Plan / Payer (Ef fective 2020-Present) Name:Kailey Reynoso Relation to Subscriber:Self Name:Kailey Reynoso Payer ID:[id number] Type:Medicaid Address: [facility] [address] [place] [address]
[2024-06-19 09:40] LABS: Basophils Percent Auto 0.6 % (0-2); Eosinophils Absolute Auto 0.2 X10*3/uL (0.0-0.4); Eosinophils Percent Auto 2.2 % (0-4); Hematocrit 40.2 % (37.0-47.0); Hemoglobin 13.7 g/dl (12.0-16.0); Imm Gran Abs Auto 0.03 X10*3/uL (0.00-0.03); Imm Gran Pct Auto 0.4 % (0.0-0.4); Lymphocytes Absolute Auto 2.9 X10*3/uL (1.2-4.9); Lymphocytes Percent Auto 41.2 % (20-40); Mean Corpuscular HGB Conc 34.1 g/dl (31.0-35.0); Mean Corpuscular Hemoglobin 28.8 pg (27.0-33.0); Mean Corpuscular Volume 84.6 fL (80.0-98.0); Mean Platelet Volume 10.9 fL (9.4-12.3); Monocytes Absolute Auto 0.4 X10*3/uL (0.1-1.2); Monocytes Percent Auto 6.3 % (2-11); Neutrophils Absolute Auto 3.4 x10*3/uL (2.0-8.3); Neutrophils Percent Auto 49.3 % (45-73); Platelet Count 213 X10*3/uL (160-400); Red Blood Count 4.75 X10*6/uL (4.20-5.50); Red Cell Distribution Width 11.9 % (11.0-16.0)
[2024-06-19 10:44] LABS: Creatinine Urine 92.49 mg/dL; Microalbum/Creatinine Ratio Ur 7.5 ug/mg cr (<30)
[2024-06-19 11:02] LABS: Alanine Aminotransferase 42 U/L (0-31); Albumin Level 4.1 g/dL (3.5-5.0); Alkaline Phosphatase 109 U/L (39-117); Anion Gap 14 (12-20); Aspartate Amino Transferase 25 U/L (5-31); Bilirubin Total 0.5 mg/dL (0.0-1.0); Blood Urea Nitrogen 18 mg/dL (9-16); Calcium 9.4 mg/dL (8.4-10.2); Carbon Dioxide 24 mmol/L (22-29); Chloride 103 mmol/L (96-108); Cholesterol 275 mg/dL (<200); Estimated Glomerular Filt Rate > 60; Glucose Fasting 190 mg/dL (60-99); HDL Cholesterol 49 mg/dL (>40); Iron 77 mcg/dL (30-160); LDL Cholesterol Calculated 181 mg/dL (<100); Percent Iron Saturation 30 % (15-50); Potassium 3.8 mmol/L (3.3-5.1); Sodium 137 mmol/L (135-145); Total Iron Binding Capacity 261 mcg/dL (228-428); Total Protein 8.5 g/dL (6.5-8.0); Triglycerides 226 mg/dL (<150); Unsaturated Iron Binding 184 ug/dL; Vitamin D 25-OH Total 35.2 ng/mL (>30)
[2024-06-19 11:25] LABS: Folate 11.9 ng/mL (> or = 4.0); Vitamin B12 280 pg/mL (200-900)
== END 2024-06-19 09:02 | disposition home or self-care (01) ==
LOC: HO.LAB 09:01
PROVIDERS: PCP Internal Medicine; Visit Provider Internal Medicine
DX: E11.65 Type 2 diabetes mellitus with hyperglycemia (principal); E53.8 Deficiency of other specified B group vitamins; E11.9 Type 2 diabetes mellitus without complications; E55.9 Vitamin D deficiency, unspecified; Z79.4 Long term (current) use of insulin; E78.5 Hyperlipidemia, unspecified
CPT/HCPCS: 36415; 80053; 80061; 82043; 82306; 82570; 82607; 82746; 83540; 85025

== ENCOUNTER 2024-06-20 09:18 | Outpatient (AMB) | payer OTHER, SELFPAY ==
[2024-06-20 09:23] VITALS: BP 124/60; BMI 26.8
--- NOTE | 2024-06-20 09:23 | A.OFFPC_ITS ---
Vital Signs 06/20/24 09:23 Height 5 ft 5 in Weight 161 lb BMI 26.8 BP 124/60 Blood Pressure Location Lt brachial Position Sitting Intake Visit Reasons: 4 month f/u Intake Note: Patient here for a 4 month follow up Speedboat Driver Required: Yes Speedboat Driver Language: Business Transformation Consultant Name: Meg Faustin MD Information Interpreted: non-clinical & clinical Accompanied by: Self / Same As Patient Allergies No Known Allergies [No Known Allergies*] Allergy (Verified 06/20/24 09:39) Medication List - Last Reconciled 06/20/24 by Meg Faustin MD acetaminophen (Tylenol Extra Strength) 500 mg PO Q6H PRN atorvastatin 80 mg PO BEDTIME 90 days blood sugar diagnostic (FreeStyle Lite Strips) As directed three times a day blood sugar diagnostic (FreeStyle Precision Jarod Strips) As directed three times a day blood-glucose meter (FreeStyle [place] Lite kit) As directed 3x/day canagliflozin-metformin 50-500 mg ER (Invokamet XR) 2 tabs (2 x 50-500 mg) PO DAILY 30 days cholecalciferol (vitamin D3) 25 mcg PO DAILY 30 days cyanocobalamin (vitamin B-12) 1,000 mcg sublingual DAILY 30 days cyclobenzaprine 5 mg PO Q8H PRN 5 days diazepam 2 mg PO BEDTIME PRN docusate sodium 100 mg PO BEDTIME dulaglutide (Trulicity) 4.5 mg (0.5 mL) subcut QWEEK evolocumab (Repatha SureClick) 140 mg subcut Q2W 30 days ezetimibe 10 mg PO DAILY 90 days fenofibrate 54 mg PO DAILY 90 days insulin glargine U-300 conc 50 units (0.1667 mL) subcut QAM 90 days ketorolac 10 mg PO TID PRN lancets As directed daily lancets (FreeStyle Lancets) Three times a day lidocaine 5% (Lidoderm) 1 patch topical DAILY PRN MDD remove after 12 hours lisinopril 5 mg PO DAILY 90 days naproxen 500 mg PO BID PRN 10 days pantoprazole 40 mg PO DAILY pen needle, diabetic daily ropinirole 0.25 mg PO BEDTIME sennosides (Natural Senna Laxative) 8.6 mg PO BEDTIME simethicone 180 mg PO BID PRN sucralfate 10 mL PO BEDTIME Tobacco use date assessed: 06/20/24 Fall risk assessment: No Falls in past year Last assessed Fall Risk: 06/20/24 Dental Screening Dental Screen Date: 06/20/24 Did you have a dental visit in the last 12 months?: Yes Did you have a dental problem in the last 6 months where you did not have access to dental care?: No Was dental information given to patient?: Patient has dentist HPI HPI Comments History of Present Illness Details The patient is a 63-year-old female presenting with a known history of Type 2 Diabetes Mellitus and Hyperlipidemia. The patient's HbA1c is elevated at 11%, indicating poorly controlled diabetes despite current therapeutic measures. She is currently on Invokamet, Trulicity at a dose of 4.5 mg, and insulin therapy, which she administers at 50 units daily. A recent increase to 55 units was discussed. The patient reported essential hypertension, managed with Lisinopril, and gastroesophageal reflux disease, treated with Pantoprazole. She takes atorvastatin 80 mg for cholesterol management; however, her LDL cholesterol remains significantly elevated at 180 mg/dL. Previous attempts to add Ezetimibe were not approved, and the patient mentioned an ongoing review of other lipid-lowering medications like Fenofibrate. Constipation is managed with docusate, and ropinirole is utilized for other unspecified symptoms. There is no history of chest pain, shortness of breath, or urinary abnormalities. 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 Mother No problems noted. 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 1. Little interest or pleasure in doing things: not at all 2. Feeling down, depressed, or hopeless: several days 3. Trouble falling or staying asleep, or sleeping too much: several days 4. Feeling tired or having little energy: not at all 5. Poor appetite or overeating: several days 6. Feeling bad about yourself - or that you are a failure or have let yourself or your family down: not at all 7. Trouble concentrating on things, such as reading the newspaper or watching television: not at all 8. Moving or speaking so slowly that other people could have noticed. Or the opposite - being so fidgety or restless that you have been moving around a lot more than usual: not at all 9. Thoughts that you would be better off or of hurting yourself in some way: not at all Total score: 3 Depression Screening Interpretation: Positive Depression Screening Follow-up: Existing condition and Follow-up Visit Requested Depression Screening Done: Yes 83023 - PHQ-9 Billing: Yes Source: Developed by Drs. Haris Larose, Andria Alonso, Sav Toribio and colleagues, with an educational andrew from [employer]. Thrive Questionnaire Date Thrive assessed: 06/20/24 I am a: Patient What is your living situation today?: I have a steady place to live Within the past 12 months, did the food you bought not last and you didn't have the money to get more?: Never true Within the past 12 months, did you worry whether your food would run out before you got money to buy more?: Never true Do you have trouble paying for medicines?: No Do you have trouble getting transportation to medical appointments?: No Do you have trouble paying your heating and electricity bill?: No Do you have trouble taking care of your child, family member or friend?: No Do you have trouble with day-to-day activities such as bathing, preparing meals, shopping, managing finances, etc.?: No Are you currently unemployed and looking for a job?: No Are you interested in more education?: No Please select the resources that you would like help with: None Currently or been in a relationship where the following occur: No concerns reported THRIVE Score: 0 AUDIT C Alcohol Use Questionnaire (AUDIT-C) 1. How often do you have a drink containing alcohol?: Never Total Score: 0 Score Reviewed/Action Taken: No JOVANA-7 AMB Questionnaire JOVANA-7 Date JOVANA - 7 assessed: 06/20/24 Feeling nervous, anxious, or on edge: 1 = Several days Not being able to stop or control worryin = Not at all Worrying too much about different things: 1 = Several days Trouble relaxin = Not at all Being so restless that it is hard to sit still: 0 = Not at all Becoming easily annoyed or irritable: 0 = Not at all Feeling afraid as if something awful might happen: 0 = Not at all Total JOVANA-7 score (0-4 normal; 5-9 mild; 10-14 moderate; 15-21 severe): 2 Source: Developed by Drs. Haris Larose, Andria Alonso, Sav Toribio and colleagues, with an educational andrew from [employer]. JOVANA-7 Assessment Billing JOVANA-7 Assessment Tool: JOVANA-7 Assessment 29569 Review of Systems Const All systems reviewed & are unremarkable except as noted in HPI and below Card Denies chest pain at rest, Denies chest pain with activity, Denies edema, Denies irregular heart rhythm, Denies claudication, Denies dyspnea, Denies dyspnea on exertion, Denies orthopnea, Denies paroxysmal nocturnal dyspnea and Denies slow heart rate Resp Denies cough, Denies dyspnea and Denies dyspnea on exertion GI Denies abdominal pain, Denies change in bowel habits, Denies excessive flatus, Denies nausea and Denies vomiting Neuro Denies behavioral changes and Denies lack of coordination Psych Denies behavioral changes Physical exam (Primary Care) Vital Signs: Last Vital Signs BP 124/60 06/20/24 09:23 BMI result Body Mass Index 26.8 Tobacco/Smoking Status: Tobacco use Status Tobacco use date assessed 06/20/24 06/20/24 09:29 Patient Tobacco Use Status Never used Tobacco 06/20/24 09:29 e-Cigarette/Vaping Use Never Used 06/20/24 09:29 PHQ-9: PHQ-9 Score PHQ-9: Total score 3 06/20/24 10:27 Depression Screening Interpretation: Positive Depression Screening Follow-up: Existing condition and Follow-up Visit Requested Thrive Assessment: Date of Thrive Assessment Date Thrive assessed 06/20/24 06/20/24 09:29 Currently or been in a relationship where the following occur: No concerns reported Resp Effort & Inspection: normal respiratory effort Auscultation: clear to auscultation bilaterally Cardio Jugular venous distension: no JVD Rate: regular rate Rhythm: regular rhythm Heart sounds: S1 normal heart sound present and S2 normal heart sound present Extrem General: Yes full ROM Office Procedures Flu Questionnaire Does the patient have a severe egg allergy?: No Flu Questionnaire Does the patient have a severe egg allergy?: No Results AMB Hemoglobin A1c AMB Hemoglobin A1c 11.0 % Last Edit by HERBERT Rodriguez on 06/20/24 09: 30 Immunizations Fluarix Triv [id number] (PF) 45 mcg (15 mcg x 3)/0.5 mL IM syringe Performing Provider: Meg Faustin MD Performing Location[place] [facility] Documented (not given) by: HERBERT Rodriguez on 06/20/24 09:31 Reason Not Given: Patient Refused Fluarix Triv [id number] (PF) 45 mcg (15 mcg x 3)/0.5 mL IM syringe Performing Provider: Meg Faustin MD Performing Location: [facility] Documented (not given) by: HERBERT Rodriguez on 06/20/24 09:59 Reason Not Given: Patient Refused Results Reviewed Results Reviewed: Laboratory Last Values Hgb A1c (Clinic) 11.0 % (4.0-6.0) H 06/20/24 09:20 Coding Level of Care Code Est Pt Level 4 (14089) Complex EM visit Add On G2211 Diagnoses Type 2 diabetes mellitus with hyperglycemia, with long-term current use of insulin E11.65; Z79.4 Mixed hyperlipidemia E78.2 Gastroesophageal reflux disease, unspecified whether esophagitis present K21.9 Esophagitis presence: esophagitis presence not specified Essential hypertension I10 Hypertension type: essential hypertension Additional Codes JOVANA-7 Assessment Billing - JOVANA-7 Assessment Tool: JOVANA-7 Assessment 73374 ([id number]) PHQ-9 - 30889 - PHQ-9 Billing: Yes ([id number]) Time Spent (min) 22 Assessment & Plan Assessment & Plan (1) Type 2 diabetes mellitus with hyperglycemia, with long-term current use of insulin: Code(s): E11.65 - Type 2 diabetes mellitus with hyperglycemia; Z79.4 - [facility] (current) use of insulin Category: Medical (2) Mixed hyperlipidemia: Code(s): E78.2 - Mixed hyperlipidemia Category: Medical (3) GERD (gastroesophageal reflux disease): Code(s): K21.9 - Gastro-esophageal reflux disease without esophagitis Category: Medical Qualifiers: Esophagitis presence: esophagitis presence not specified Qualified Code(s): K21.9 - Gastro-esophageal reflux disease without esophagitis (4) Hypertension: Code(s): I10 - Essential (primary) hypertension Category: Medical Qualifiers: Hypertension type: essential hypertension Qualified Code(s): I10 - Essential (primary) hypertension Plan - Adjust insulin dosage from 50 to 55 units daily for tighter glycemic control. - Reinforce daily administration of Atorvastatin 80 mg for hyperlipidemia management and consider adding Fenofibrate for triglycerides pending approval. - Monitor blood glucose levels regularly and maintain current antihypertensive regimen. - Continue Pantoprazole for gastroesophageal reflux and docusate for constipation. - Schedule laboratory tests in five months to reevaluate glycemic control and lipid levels. - Arrange a follow-up for comprehensive diabetes management support [facility] at [facility]. Patient was informed and verbally consented to the use of an ambient scribe for clinic note documentation during this visit. I reiterated the importance of glycemic control and the potential complications of poorly managed diabetes, including risks of blindness, renal failure, and ca rdiovascular events. We discussed the necessity of maintaining an LDL level closer to 70 mg/dL and the approved addition of Fenofibrate while awaiting coverage resolution for Ezetimibe. The required daily regimen compliance with insulin, diet modification, and statin therapy was emphasized. I addressed the patient?s concerns regarding current medications and encouraged routine follow- up visits for ongoing evaluation and support. Orders: Orders AMB Hemoglobin A1c Today E11.65 - Type 2 diabetes mellitus with hyperglycemia, Z79.4 - [facility] (current) use of insulin Lipid Panel 5 Months E78.5 - Hyperlipidemia, unspecified Microalbumin, Random (w Creat) 5 Months R80.9 - Proteinuria, unspecified Vitamin D 25-OH Total 5 Months E55.9 - Vitamin D deficiency, unspecified Vitamin B12 and Folate 5 Months E53.8 - Deficiency of other specified B group vitamins Comprehensive [place]. 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 Influenza [id number] Immunization Today Z23 - Encounter for immunization Influenza [id number] Immunization Today Z23 - Encounter for immunization Medications: Changed From insulin glargine U-300 conc 50 units (0.1667 mL) subcut QAM 90 days 15.003 mL 6RF E11.65 - Type 2 diabetes mellitus with hyperglycemia To insulin glargine U-300 conc 55 units (0.1833 mL) subcut QAM 16.497 mL 6RF 90 days E11.65 - Type 2 diabetes mellitus with hyperglycemia Refilled fenofibrate 54 mg PO DAILY 90 tabs 2RF 90 days E78.2 - Mixed hyperlipidemia ezetimibe 10 mg PO DAILY 90 tabs 1RF 90 days E78.5 - Hyperlipidemia, unspecified Patient Instructions: - Increase insulin to 55 units daily as discussed. - Take atorvastatin as prescribed and maintain current medications unless advised otherwise. - Adhere to a low-sugar diet and continue monitoring blood glucose levels. - Attend follow-up in five months for repeat laboratory work. - Report any new or worsening symptoms, especially chest pain or significant changes in health status, immediately.
--- OUTSIDE RECORDS SUMMARY | 2024-06-20 09:48 | XMS_ITS | Clinical Summary ---
Author Organization [facility] Address [address] [place] [address] Care Team Providers Care Birth Certificate Clerk Name Role Phone Unavailable Primary Care Provider [...] 08/12/2004 Imm-Zoster, Recombinant (1 of 2) 08/12/2009 [id number] ( season) 2024 021, 09/12/2020 Imm-Influenza (#1) 2024 03/26/2020, 1 06/18/2018, 03/31/2018, Additional history exists Alcohol and Drug Screen 05/17/2024 Depression Annual Screen 05/17/2024 Imm-DTaP/Tdap/Td (2 - Td or Tdap) 07/16/2026 017 Cervical Ablation/Cold-Knife Conization Discontinued Cervical Cryotherapy Discontinued Colposcopy Discontinued Endometrial Biopsy Discontinued Excision/Leep Discontinued HPV Genotyping Discontinued Vaginal Pap Discontinued Vulvoscopy Discontinued Insurance [employer] PL[employer] Member Subscriber Plan / Payer (Ef fective 2020-Present) Name:Kailey Reynoso Relation to Subscriber:Self Name:Kailey Reynoso Payer ID:[id number] Type:Medicaid Address: [facility] [address] [place] [address]
--- OUTSIDE RECORDS SUMMARY | 2024-06-20 09:48 | XMS_ITS | Clinical Summary ---
Author Organization [facility] Address [address] [place] [address] Care Team Providers Care Tube Mounter Name Role Phone Unavailable Primary Care Provider Unavailabl e Allergies No known active allergies Medications No known medications Active Problems Problem Noted Date Diagnosed Date Periodontal disease 04/18/2024 Encounters Date Type Department Care Team Description 04/18/2024 11:30 AM EST Office Visit [facility] [address] [place] [address] Rufino Tobar DDS Periodontal disease (Primary Dx) [...] Most Recently Relevant to Health Maintenance Insurance [facility] STANDARD DENTAL-[facility] MEDICAID STAND ADULT
== END 2024-06-20 09:50 | disposition home or self-care (01) ==
PROVIDERS: PCP Internal Medicine; Visit Provider Internal Medicine
DX: E11.65 Type 2 diabetes mellitus with hyperglycemia (principal); Z79.4 Long term (current) use of insulin; E78.2 Mixed hyperlipidemia; K21.9 Gastro-esophageal reflux disease without esophagitis; I10 Essential (primary) hypertension; Z23 Encounter for immunization

== ENCOUNTER → 2024-06-20 09:18 | Outpatient (BNVA) | payer OTHER, SELFPAY | PROVIDERS: PCP Internal Medicine; Visit Provider Internal Medicine | DX: E11.65 Type 2 diabetes mellitus with hyperglycemia (principal); E78.2 Mixed hyperlipidemia; K21.9 Gastro-esophageal reflux disease without esophagitis; I10 Essential (primary) hypertension | CPT/HCPCS: 83036; 90471; 96127; 99212 ==

== ENCOUNTER 2024-12-15 08:49 | Outpatient (REF) | payer MEDICARE, SELFPAY ==
--- OUTSIDE RECORDS SUMMARY | 2024-12-15 09:01 | XMS_ITS | Clinical Summary ---
Author Organization [employer] Address [address] [place] [address] Care Team Providers Care Delivery And Installation Subcontractor Name Role Phone Unavailable Primary Care Provider Unavailabl e Allergies No known active allergies Medications No known medications Active Problems Problem Noted Date Diagnosed Date Periodontal disease 04/18/2024 Immunizations Immunization Administration Dates Next Due Influenza injectable quadriv [...] FIT DNA/Cologuard 1959 FIT 1959 FOBT 1959 SDOH Screening 1959 Sigmoidoscopy 1959 Alcohol/Substance [...] 2024 04/02/2022, 10/10/2020, 09/12/2020 Influenza Vaccine (#1) 2025 , 03/24/2022, 02/24/2021, Additional history exists Tobacco [...] patient's age to complete this topic Meningococcal B Vaccine Aged Out No l onger eligible based on patient's age to complete [...] Procedure Name Priority Date/Time Associated Diagnosis Comments PANORAMIC RADIOGRAPHIC IMAGE Routine 04/18/2024 11:30 AM EST PROPHYLAXIS - ADULT Routine 01/11/2018 1 2:00 AM EDT INTRAORAL - COMPLETE SERIES OF RADIOGRAPHIC IMAGES Routine 04/15/2017 12:00 AM EST COMPREHENSIVE ORAL EVALUATION - NEW OR ESTABLISHED PATIENT Routine 04/15/2017 12:00 AM EST from Last 3 Months or Most Recently Relevant to Health Maintenance Insurance [facility] STANDARD DENTAL-[facility] STAND ADULT
--- OUTSIDE RECORDS SUMMARY | 2024-12-15 09:01 | XMS_ITS | Clinical Summary ---
Demographics Address [address] [place] [address] Home Phone Mobile Phone Preferred Language Polish Marital Status Sikhism Affiliation Unknown Race Unknown Ethnic Group or Author Organization [facility] Address [address] [place] [address] Care Team Providers Care Civil Design Technician Name Role Phone Unavailable Primary Care Provider Unavailabl e Source Comments PLEASE NOTE, if this patient is a minor, it may be UNLAWFUL to discuss sensitive information that is contained in these records (such as FAMILY PLANNING, MENTAL HEALTH or SUBSTANCE ABUSE) with the minor patient's parent or other person without the patient's specific authorization.[facility] Immunizations Immunization Administration Dates Next Due Moderna COVID-19 Vaccine, [...] Health Maintenance Due Date Last Done Comments Anxiety Screening 1960 Diabetes Screening 1959 Hepatitis C Screening 1959 Lipid Screening 1959 Tobacco Screening 1959 HIV Screening 08/12/1974 Hypertension Screening (#1) 08/12/1977 Breast Cancer Screening (Mammogram) [address] CT Colonography 08/12/2004 Colonoscopy 08/12/2004 Colorectal Cancer Screening 08/12/2004 FIT/gFOBT 08/12/2004 Fecal DNA 08/12/2004 Flexible Sigmoidoscopy 08/12/2004 Imm-Zoster, Recombinant (1 of 2) 08/12/2009 Imm-Pneumococcal 50+ (2 of 2 - PCV) 04/16/2018 04/16/2017 [id number] ( season) 2024 021, 09/12/2020 Alcohol and Drug Screen 05/17/2024 Depression Annual Screen 05/17/2024 Bone Density Screening 08/12/2024 Falls Prevention 08/12/2024 Imm-Influenza (#1) 2025 03/26/2020, 1 06/18/2018, 03/31/2018, Additional history exists Imm-DTaP/Tdap/Td (2 - Td or Tdap) 07/16/2026 017 Insurance [facility] [employer] PLAN Member Subscriber Plan / Payer (Ef fective 2020-Present) Name:Kailey Reynoso Relation to Subscriber:Self Name:Kailey Reynoso Payer ID:[id number] Type:Medicaid Address: [facility] [address] [place] [address]
--- OUTSIDE RECORDS SUMMARY | 2024-12-15 09:01 | XMS_ITS | Patient Health Record ---
Author Organization [facility] Address [address] [place] [address] Care Team Providers Care Supervisor Instrument Repair Name Role Phone Meg Penn Primary Care Provider Haris Zhou [phone] Reason For Referral No Information Medications Medication SIG (Take, Route, Frequency, Duration) Notes Start Date End Date Status Dulcolax (colon prep) 5 MG take at 3:00 p.m and 7:00p.m. Orally two tablets twice a day for one day for 1 day 01/19/2018 Active MiraLax (colon prep) 8.3 ounce ((238) grams mixed with Gatorade or Crystal Light orally begin at 5:00 p.m. the day before the procedure for 1 day 01/19/2018 Active metFORMIN HCl ER Act gayatri B-12 Active Trulicity Active Lantus Active Atorvastatin Calcium Active Vitamin D3 Active Invokana Active Social History Tobacco Use: Social History Observation Description Date Details (start date - stop date) Never Smoker NA - NA Tobacco Use/Smoking Question Answer Notes Patient is a nonsmoker Alcohol Screen Question Answer Notes Did you have a drink containing alcohol in the p ast year? No Points 0 Interpretation Negative Section Notes: Nonsmoker; no sig alcohol Problems Problem Type SNOMED Code ICD Code Onset Dates Problem Status W/U Status Risk Notes Problem 857755019 Encounter for screening for malignant neoplasm of colon (Z12.11) Active confirmed Problem 135618825 History of adenomatous polyp of colon (Z86.010) Active confirmed Problem 013376216 Abdominal bloating (R14.0) Active confirmed Problem 93927912 Abdominal gas pain (R14.1) Active confirmed Plan Of Treatment Future Test Test Name Order Date COLONOSCOPY 01/18/2018 Insurance Providers Payer Name Payer Address Payer Phone Subscriber Number Group Number Insured Name Patient Relationship to Insured Coverage Start Date Coverage End Date [facility] [address] [address] [place], [place] [id number] HELADIO DEVINE Self - patient is the insured Medical (General) History Medical History History ICD Code Hypertension IDDM Hyperlipidemia 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 Qureshi--had surgery as below Denies OK,CVA,Lung disease,renal disease Surgical History Surgery Date(Month/Year) Tubal ligation JUDITH with BSO Right colectomy in 2015 for the flat tubular adenoma in the cecum as above--- no sign of any malignancy within the polyp Cholecystectomy 1994 Breast reduction 2017
--- OUTSIDE RECORDS SUMMARY | 2024-12-15 09:01 | XMS_ITS | Clinical Summary ---
Author Organization [facility] Address [address] [place] [address] Phone Care Team Providers Care Vending Machine Mechanic Name Role Phone Meg Penn MD Primary Care Provid er Allergies No known active allergies Medications lisinopril (PRINIVIL,ZESTR IL) 5 MG tablet 1 tablet Acti ve metFORMIN (GLUCOPHAGE) 500 MG tablet 1 tablet with meals Active insulin aspart (NOVOLOG) 100 unit/mL injection vial Activ e b complex vitamins capsule Take 1 capsule by mouth daily. Active insulin glargine (LANTUS) 100 unit/mL injection vial Inject 100 Units under the skin. Active DULAGLUTIDE (TRULICITY SUBQ) Inject 1.5 mg under the skin. Active cholecalciferol (VITAMIN D3) 1,000 unit tablet Take 1,000 Units by mouth daily. Active atorvastatin (LIPITOR) 80 MG tablet Take 80 mg by mouth daily. Active sulindac (CLINORIL) 200 MG tablet Take 200 mg by mouth 2 (two) times a day with meals. Active Active Problems Problem Noted Date Diagnosed Date Hyperlipidemia 03/22/2017 Hypertrophy of breast 03/18/2017 Resolved Problems Problem Noted Date Diagnosed Date Resolved Date Hyperlipidemia 03/18/2017 03/18/2017 Family History Medical History Relation Comments CV disease Father 2 Relation Status Comments Father 1 Father 2 Social History Tobacco Use Types Packs/Day Years Used Date Smoking Tobacco: Never Smokeless Tobacco: Never Alcohol Use Standard Drinks/Week Comments No 0 (1 standard drink = 0.6 oz pur e alcohol) Education Answer Date Recorded Are you interested in more education? Not on jie e 09/11/2022 Are you concerned about learning? Not on file 09/11/2022 No 09/11/2022 No 09/11/2022 Digital Access Answer Date Recorded No 10/10/2022 No 10/10/2022 Reliable internet access at home? Not on file 10/10/2022 Device with a working camera? Not on file Comments Unknown Sex and Gender Information Value Date Recorded Sex Assigned at Not on file Legal Sex Female 10:34 PM EDT Gender Identity Not on file Sexual Orientation Not on file Last Filed Vital Signs Vital Sign Reading Time Taken Comments Blood Pressure 138/84 06/21/2017 9:41 AM EST Pulse 89 06/21/2017 9:41 AM EST Temperature - - Respiratory Rate - - Oxygen Saturation - - Inhaled Oxygen Concentration - - Weight 75.8 kg (167 lb) 06/21/2017 9:41 AM EST Height 165.1 cm (5' 5 ) 06/21/2017 9:41 AM EST Body Mass Index 27.79 06/21/2017 9:41 AM EST Plan of Treatment Health Maintenance Due Date Last Done Comments CREATININE LEVEL 1959 LIPID PANEL 1959 POTASSIUM LEVEL 1959 DEPRESSION SCREENING 1971 HEPATITIS C SCREENING 08/12/1977 HIV ONE-TIME SCREENING (18-6 5 YEARS) 08/12/1977 MAMMOGRAM 1999 COLOGUARD 08/12/2004 COLONOSCOPY 08/12/2004 COLORECTAL CANCER SCREENING 08/12/2004 FIT TEST 08/12/2004 FOBT 08/12/2004 SIGMOIDOSCOPY 08/12/2004 VIRTUAL COLONOSCOPY 08/12/2004 ZOSTER VACCINES (1 of 2) 08/12/2009 PNEUMOCOCCAL VACCINES (50+ years) (2 of 2 - PCV) 04/16/2018 04/16/2017 COVID-19 VACCINE (3 - 2023-2 5 season) 2024 10/10/2020, 09/12/2020 OSTEOPOROSIS SCREENING INITI AL (ONE-TIME) 08/12/2024 Adult Td,Tdap Booster 07/16/2026 07/16/2016 RSV VACCINE (1 - 1-dose 75+ series) 08/12/2034 SMOKING STATUS SCREENING (On ce After 26 Yrs) Completed 06/21/2017 HEPATITIS A VACCINES Aged Out No long er eligible based on patient's age to complete this topic HIB VACCINES Aged Out No longer eligi ble based on patient's age to complete this topic MENINGOCOCCAL VACCINES (ACWY) Aged Out No longer eligible based on patient's age to complete this topic MENINGOCOCCAL VACCINES (B) Aged Out N o longer eligible based on patient's age to complete this topic Medical Devices Not on file Insurance [employer] O [employer] O Systems Maintenance ServicesHEALTH O Systems Maintenance ServicesHEALTH MCO Systems Maintenance ServicesHEALTH O Care Teams Vending Machine Mechanic Relationship Specialty Start Date End Date Meg Penn MD [address] [place] [address] PCP - General 03/02/17 Additional Source Comments The information contained in this document represents components of the legal health record. It is not the complete legal health record.[facility]
[2024-12-15 10:06] LABS: Alanine Aminotransferase 119 U/L (0-31); Albumin Level 4.2 g/dL (3.5-5.0); Alkaline Phosphatase 116 U/L (39-117); Anion Gap 15 (12-20); Aspartate Amino Transferase 91 U/L (5-31); Blood Urea Nitrogen 51 mg/dL (9-16); Calcium 9.4 mg/dL (8.4-10.2); Carbon Dioxide 23 mmol/L (22-29); Chloride 103 mmol/L (96-108); Cholesterol 257 mg/dL (<200); Estimated Glomerular Filt Rate 34; HDL Cholesterol 31 mg/dL (>40); Potassium 4.0 mmol/L (3.3-5.1); Sodium 137 mmol/L (135-145); Total Protein 8.1 g/dL (6.5-8.0); Triglycerides 241 mg/dL (<150)
[2024-12-15 10:37] LABS: Folate 13.7 ng/mL (> or = 4.0); Vitamin B12 378 pg/mL (200-900)
== END 2024-12-15 08:50 | disposition home or self-care (01) ==
LOC: HO.LAB 08:49
PROVIDERS: PCP Internal Medicine; Visit Provider Internal Medicine
DX: E11.65 Type 2 diabetes mellitus with hyperglycemia (principal); Z79.4 Long term (current) use of insulin; E53.8 Deficiency of other specified B group vitamins; E78.5 Hyperlipidemia, unspecified; E55.9 Vitamin D deficiency, unspecified; R80.9 Proteinuria, unspecified
CPT/HCPCS: 36415; 80053; 80061; 82043; 82306; 82570; 82607; 82746

== ENCOUNTER 2024-12-18 13:49 | Outpatient (AMB) | payer MEDICARE, MEDICAID, SELFPAY ==
--- NOTE | 2024-12-18 13:51 | A.OFFPC_ITS ---
Vital Signs 12/18/24 14:02 Height 5 ft 5 in Weight 156 lb BMI 26.0 BP 108/62 Blood Pressure Location Lt brachial Position Sitting Intake Visit Reasons: Annual exam Intake Note: Patient here for a physical exam Sales Development Consultant Required: No Accompanied by: Daughter Allergies No Known Allergies (No Known Allergies*) Allergy (Verified 12/18/24 14:04) Medication List - Last Reconciled 12/18/24 by Meg Faustin MD acetaminophen (Tylenol Extra Strength) 500 mg PO Q6H PRN aspirin 81 mg PO DAILY atorvastatin 80 mg PO BEDTIME 90 days blood sugar diagnostic (FreeStyle Precision Jarod Strips) As directed three times a day blood sugar diagnostic (FreeStyle Lite Strips) use 1 strip once a day blood sugar diagnostic (Accu-Chek Guide test strips) Use 1 test trip once a day blood-glucose meter (FreeStyle [place] Lite kit) As directed 3x/day blood-glucose meter (Accu-Chek Guide Glucose Meter) As directed canagliflozin-metformin 50-500 mg ER (Invokamet XR) 2 tabs (2 x 50-500 mg) PO DAILY 30 days cholecalciferol (vitamin D3) 25 mcg PO DAILY 30 days cyanocobalamin (vitamin B-12) 1,000 mcg sublingual DAILY 30 days cyclobenzaprine 5 mg PO Q8H PRN 5 days diazepam 2 mg PO BEDTIME PRN docusate sodium 100 mg PO BEDTIME dulaglutide (Trulicity) 4.5 mg (0.5 mL) subcut QWEEK evolocumab (Repatha SureClick) 140 mg subcut Q2W 30 days ezetimibe 10 mg PO DAILY 90 days fenofibrate 54 mg PO DAILY 90 days insulin glargine U-300 conc 55 units (0.1833 mL) subcut QAM 90 days ketorolac 10 mg PO TID PRN lancets As directed daily lancets (FreeStyle Lancets) Three times a day lancets (Accu-Chek Softclix Lancets) Use 1 lancet once a day lidocaine 5% (Lidoderm) 1 patch topical DAILY PRN MDD remove after 12 hours lisinopril 5 mg PO DAILY 90 days losartan 25 mg PO DAILY metoprolol succinate ER 25 mg PO DAILY naproxen 500 mg PO BID PRN 10 days pantoprazole 40 mg PO DAILY pen needle, diabetic daily ropinirole 0.25 mg PO BEDTIME sennosides (Natural Senna Laxative) 8.6 mg PO BEDTIME simethicone 180 mg PO BID PRN sucralfate 10 mL PO BEDTIME ticagrelor (Brilinta) 90 mg PO BID Tobacco use date assessed: 06/20/24 Dental Screening Dental Screen Date: 06/20/24 HPI HPI Comments History of Present Illness Details The patient is a 64-year-old female presenting with a physical exam and preventative care. She has a history of diabetes mellitus, with a recent HbA1c level of 10, which has improved from a previous level of 11. Her cholesterol levels are elevated, with LDL cholesterol at 178 mg/dL, which is significantly above the target level of 70 mg/dL. The patient has a history of coronary artery disease, having undergone stent placement at [facility] [place]. She reports being on multiple medications, including atorvastatin, metoprolol, and losartan, to manage her conditions. She experiences dizziness and fatigue, which she attributes to her antihypertensive medication. The patient reports gastrointestinal bleeding, noting blood during bowel movements, which may be related to her use of aspirin and Brilinta. She denies any allergies to medications and has a history of appendectomy and hysterectomy. - Pneumococcal vaccination discussed and planned - Dietary modifications recommended to bong fung hyperlipidemia - Referral to gastroenterology for evalu ation of gastrointestinal bleeding [facility] Medical History Right elbow pain Abnormal UGI series GERD (gastroesophageal reflux disease) Pernicious anemia Diabetic polyneuropathy associated with type 2 diabetes mellitus senior living (current) use of insulin Diabetes type 2, uncontrolled Hypovitaminosis D Right shoulder pain Dyslipidemia Diabetes Hypertension Surgical History History of esophagogastroduodenoscopy (EGD) Hx of colonoscopy History of hemicolectomy History of appendectomy H/O: hysterectomy H/O tubal ligation Family History Father No problems noted. Mother No problems noted. 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 1. Little interest or pleasure in doing things: several days 2. Feeling down, depressed, or hopeless: several days 3. Trouble falling or staying asleep, or sleeping too much: several days 4. Feeling tired or having little energy: several days 5. Poor appetite or overeating: several days 6. Feeling bad about yourself - or that you are a failure or have let yourself or your family down: several days 7. Trouble concentrating on things, such as reading the newspaper or watching television: several days 8. Moving or speaking so slowly that other people could have noticed. Or the opposite - being so fidgety or restless that you have been moving around a lot more than usual: not at all 9. Thoughts that you would be better off or of hurting yourself in some way: not at all Total score: 7 Depression Screening Interpretation: Positive Depression Screening Follow-up: Existing condition and Follow-up Visit Requested Depression Screening Done: Yes 99630 - PHQ-9 Billing: Yes Source: Developed by Drs. Haris Larose, Andria Alonso, Sav Toribio and colleagues, with an educational andrew from [employer]. Thrive Questionnaire Date Thrive assessed: 12/18/24 I am a: Patient What is your living situation today?: I have a steady place to live Within the past 12 months, did the food you bought not last and you didn't have the money to get more?: I choose not to answer this question Within the past 12 months, did you worry whether your food would run out before you got money to buy more?: I choose not to answer this question Do you have trouble paying for medicines?: No Do you have trouble getting transportation to medical appointments?: No Do you have trouble paying your heating and electricity bill?: No Do you have trouble taking care of your child, family member or friend?: No Do you have trouble with day-to-day activities such as bathing, preparing meals, shopping, managing finances, etc.?: No Are you currently unemployed and looking for a job?: No Are you interested in more education?: Yes Please select the resources that you would like help with: None THRIVE Score: 0 JOVANA-7 AMB Questionnaire JOVANA-7 Date JOVANA - 7 assessed: 12/18/24 Feeling nervous, anxious, or on edge: 1 = Several days Not being able to stop or control worryin = Not at all Worrying too much about different things: 1 = Several days Trouble relaxin = Not at all Being so restless that it is hard to sit still: 0 = Not at all Becoming easily annoyed or irritable: 0 = Not at all Feeling afraid as if something awful might happen: 0 = Not at all Total JOVANA-7 score (0-4 normal; 5-9 mild; 10-14 moderate; 15-21 severe): 2 Source: Developed by Drs. Haris Larose, Andria Alonso, Sav Toribio and colleagues, with an educational andrew from [employer]. JOVANA-7 Assessment Billing JOVANA-7 Assessment Tool: JOVANA-7 Assessment 31925 Review of Systems Const All systems reviewed & are unremarkable except as noted in HPI and below Card Denies chest pain at rest, Denies chest pain with activity, Denies edema, Denies irregular heart rhythm, Denies claudication, Denies dyspnea, Denies dyspnea on exertion, Denies orthopnea, Denies paroxysmal nocturnal dyspnea and Denies slow heart rate Resp Denies cough, Denies dyspnea and Denies dyspnea on exertion GI Denies abdominal pain, Denies change in bowel habits, Denies excessive flatus, Denies nausea and Denies vomiting Denies urinary incontinence, Denies urinary hesitancy and Denies urinary urgency Musc Denies abnormal gait, Denies atrophy, Denies deformity and Denies limited range of motion Skin/Breast Denies bleeding lesions, Denies changing lesions and Denies rash Neuro Denies abnormal gait, Denies behavioral changes and Denies lack of coordination Psych Denies behavioral changes Physical exam (Primary Care) Vital Signs: Last Vital Signs BP 108/62 12/18/24 14:02 BMI result Body Mass Index 26.0 Tobacco/Smoking Status: Tobacco use Status Tobacco use date assessed 06/20/24 12/18/24 13:51 Patient Tobacco Use Status Never used Tobacco 12/18/24 13:51 e-Cigarette/Vaping Use Never Used 12/18/24 13:51 PHQ-9: PHQ-9 Score PHQ-9: Total score 7 12/18/24 14:30 Depression Screening Interpretation: Positive Depression Screening Follow-up: Existing condition and Follow-up Visit Requested Thrive Assessment: Date of Thrive Assessment Date Thrive assessed 12/18/24 12/18/24 13:51 HENMT Head: Yes normal to inspection, Yes normocephalic and Yes atraumatic Ears: external ears normal Eyes General: appearance normal, both eyes and all related structures Eyelids: Yes eyelids normal Conjunctivae: conjunctivae normal Neck Neck: Yes normal visual inspection and Yes supple Resp Effort & Inspection: normal respiratory effort Auscultation: clear to auscultation bilaterally Cardio Jugular venous distension: no JVD Rate: regular rate Rhythm: regular rhythm Heart sounds: S1 normal heart sound present and S2 normal heart sound present GI Inspection: Yes normal to inspection Palpation (GI): Soft to palpation and nontender Auscultation: normal bowel sounds Skin General skin exam: no rashes or lesions noted Neuro General: no focal motor deficits Extrem General: Yes full ROM Psych Appearance: grossly normal Results AMB Hemoglobin A1c AMB Hemoglobin A1c 10.1 % Last Edit by HERBERT Rodriguez on 12/18/24 14: 08 Immunizations pneumoc 20-bravo conj-dip cr(PF) 0.5 mL IM syringe Performing Provider: Meg Faustin MD [facility] Administered by: HERBERT Rodriguez on 12/18/24 14:30 Dose Route Admin Location Dispensed Lot Number Expiration Date [facility] Propulsion Systems Engineer 0.5 mL IM Left Deltoid 0.5 mL [id number] 11/14/25 6731-6669-51 [employer] /[employer] Total Dispensed Waste 0.5 mL 0 % VIS Given Date VIS Provided VIS Publication Date 12/18/24 Single Vaccine 24 Eligibility Eligibility Date Funding Source Not [facility] Eligible 12/18/24 Private Results Reviewed Results Reviewed: Laboratory Last Values Hgb A1c (Clinic) 10.1 % (4.0-6.0) H 12/18/24 13:51 Coding Level of Care Code Est Pt Level 4 (01336) Est Pt Prev Care >65y(88937) Diagnoses Physical exam Z00.00 Transaminitis R74.01 Bloody stools K92.1 Type 2 diabetes mellitus with hyperglycemia, with long-term current use of insulin E11.65; Z79.4 Stented coronary artery Z95.5 Mixed hyperlipidemia E78.2 Additional Codes JOVANA-7 Assessment Billing - JOVANA-7 Assessment Tool: JOVANA-7 Assessment 20187 ([id number]) PHQ-9 - 38954 - PHQ-9 Billing: Yes ([id number]) Time Spent (min) 38 Assessment & Plan Assessment & Plan (1) Physical exam: Code(s): Z00.00 - Encounter for general adult medical examination without abnormal findings Category: Medical (2) Transaminitis: Code(s): R74.01 - Elevation of levels of liver transaminase levels Category: Medical (3) Bloody stools: Code(s): K92.1 - Melena Category: Medical (4) Type 2 diabetes mellitus with hyperglycemia, with long-term current use of insulin: Code(s): E11.65 - Type 2 diabetes mellitus with hyperglycemia; Z79.4 - termite control representative (current) use of insulin Category: Medical (5) Stented coronary artery: Comment: November 2024 Code(s): Z95.5 - Presence of coronary angioplasty implant and graft Category: Surgical (6) Mixed hyperlipidemia: Code(s): E78.2 - Mixed hyperlipidemia Category: Medical Plan The patient will receive a pneumococcal vaccination as part of her preventative care measures. Dietary modifications are recommended to address her hyperlipidemia, with a focus on reducing LDL cholesterol levels. A referral to gastroenterology is planned to evaluate the reported gastrointestinal bleeding, which may be related to her current medication regimen. The patient's antihypertensive medication will be reviewed due to reported dizziness and fatigue, potentially adjusting the dosage to alleviate these symptoms. Continued monitoring of her diabetes management is necessary, with emphasis on maintaining or further improving her HbA1c levels. Patient was informed and verbally consented to the use of an ambient scribe for clinic note documentation during this visit. Orders: Orders AMB Hemoglobin A1c Today E11.65 - Type 2 diabetes mellitus with hyperglycemia, Z79.4 - senior living (current) use of insulin XR DEXA axial skeleton Today Z78.0 - Asymptomatic menopausal state Vitamin D 25-OH Total 4 Months E55.9 - Vitamin D deficiency, unspecified Comprehensive [place]. Panel Fast 4 Months E78.01 - Familial hypercholesterolemia Lipoprotein Asso Phospholip A2 4 Months E78.01 - Familial hypercholesterolemia Pneumococcal 20 Immunization Today Z23 - Encounter for immunization MM tomosynthesis screening BI Today Z12.31 - Encounter for screening mammogram for malignant neoplasm of breast Lipid Panel 4 Months E78.5 - Hyperlipidemia, unspecified Microalbumin, Random (w Creat) 4 Months R80.9 - Proteinuria, unspecified Vitamin B12 and Folate 4 Months E53.8 - Deficiency of other specified B group vitamins Lipoprotein A 4 Months E78.01 - Familial hypercholesterolemia Apolipoprotein B 4 Months E78.01 - Familial hypercholesterolemia Referrals Endocrinology Referral E11.65 - Type 2 diabetes mellitus with hyperglycemia, Z79.4 - senior living (current) use of insulin Gastroenterology Referral K92.1 - Melena, R74.01 - Elevation of levels of liver transaminase levels Cardiology Referral Z95.5 - Presence of coronary angioplasty implant and graft Medications: Discontinued lisinopril Discontinued Reason: Patient Completed Course 5 mg PO DAILY 90 days 90 tabs 1RF I10 - Essential (primary) hypertension
[2024-12-18 14:02] VITALS: BP 108/62; BMI 26.0
--- OUTSIDE RECORDS SUMMARY | 2024-12-18 14:02 | XMS_ITS | Clinical Summary ---
Author Organization [facility] Address [address] [place] [address] Phone Care Team Providers Care Well Puller Name Role Phone Meg Penn MD Primary [...] topic Medical Devices Not on file Insurance DIRAmed O DIRAmed O DIRAmed O DIRAmed O DIRAmed O DIRAmed O [employer] O [employer]HE[employer] MCO [employer] O Care Teams Well Puller Relationship Specialty Start Date End Date Meg Penn MD [address] [place] [address] PCP - General 03/02/17 Additional Source Comments The information contained in this document represents components of the legal health record. It is not the complete legal health record.[facility]
--- OUTSIDE RECORDS SUMMARY | 2024-12-18 14:02 | XMS_ITS | Clinical Summary ---
Author Organization [facility] Address [address] [place] [address] Care Team Providers Care Tooler Name Role Phone Unavailable Primary Care Provider [...] (2 of 2 - PCV) 04/16/2018 04/16/2017 [id number] ( season) 2024 021, 09/12/2020 Alcohol and Drug Screen 05/17/2024 Depression Annual Screen 05/17/2024 Bone Density Screening 08/12/2024 Falls Prevention 08/12/2024 Imm-Influenza (#1) 2025 03/26/2020, 1 06/18/2018, 03/31/2018, Additional history exists Imm-DTaP/Tdap/Td (2 - Td or Tdap) 07/16/2026 017 Insurance [facility] [employer] Member Subscriber Plan / Payer (Ef fective 2020-Present) Name:Kailey Reynoso Relation to Subscriber:Self Name:Kailey Reynoso Payer ID:[id number] Type:Medicaid Address: [facility] [address] [place] [address]
--- OUTSIDE RECORDS SUMMARY | 2024-12-18 14:02 | XMS_ITS | Patient Health Record ---
Author Organization [facility] Address [address] [place] [address] Care Team Providers Care Movie Critic Name Role Phone Meg Penn Primary Care Provider Haris Zhou [phone] Reason For Referral No Information Medications Medication [...] Problem Status W/U Status Risk Notes Problem [id number] Encounter for screening for malignant neoplasm of colon (Z12.11) Active confirmed Problem 354440920 History of adenomatous polyp of colon (Z86.010) Active confirmed Problem 802298931 Abdominal bloating (R14.0) Active confirmed Problem [id number] Abdominal gas pain (R14.1) Active confirmed Plan Of Treatment Future Test Test Name Order Date COLONOSCOPY 01/18/2018 Insurance Providers Payer Name Payer Address Payer Phone Subscriber Number Group Number Insured Name Patient Relationship to Insured Coverage Start Date Coverage End Date [facility] [address] [address] [place], [place] [id number] HELADIO DEVINE Self - patient is the insured Medical (General) History Medical History History ICD Code Hypertension IDDM Hyperlipidemia 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 Qureshi--had surgery as below Denies DE,CVA,Lung disease,renal disease Surgical History Surgery Date(Month/Year) Tubal ligation JUDITH with BSO Right colectomy in 2015 for the flat tubular adenoma in the cecum as above--- no sign of any malignancy within the polyp Cholecystectomy 1994 Breast reduction 2017
--- OUTSIDE RECORDS SUMMARY | 2024-12-18 14:02 | XMS_ITS | Clinical Summary ---
Author Organization [employer] Address [address] [place] [address] Care Team Providers Care Plate Put In Worker Name Role Phone Unavailable Primary Care Provider [...] Most Recently Relevant to Health Maintenance Insurance [facility] STAND ADULT
== END 2024-12-18 14:44 | disposition home or self-care (01) ==
LOC: HO.HMCH 13:49
PROVIDERS: PCP Internal Medicine; Visit Provider Internal Medicine
DX: Z00.00 Encounter for general adult medical examination without abnormal findings (principal); R74.01 Elevation of levels of liver transaminase levels; K92.1 Melena; E11.65 Type 2 diabetes mellitus with hyperglycemia; Z79.4 Long term (current) use of insulin; Z95.5 Presence of coronary angioplasty implant and graft; E78.2 Mixed hyperlipidemia; Z23 Encounter for immunization

== ENCOUNTER → 2024-12-18 13:49 | Outpatient (BNVA) | payer OTHER, SELFPAY | PROVIDERS: PCP Internal Medicine; Visit Provider Internal Medicine | DX: Z00.00 Encounter for general adult medical examination without abnormal findings (principal); Z23 Encounter for immunization; R74.01 Elevation of levels of liver transaminase levels; K92.1 Melena; E11.65 Type 2 diabetes mellitus with hyperglycemia; E78.2 Mixed hyperlipidemia; Z79.4 Long term (current) use of insulin; Z95.5 Presence of coronary angioplasty implant and graft | CPT/HCPCS: 83036; 90471; 90677; 96127; 99212; 99397 ==

== ENCOUNTER 2025-02-15 08:36 | Outpatient (AMB) | payer MEDICARE, MEDICAID, SELFPAY ==
[2025-02-15 08:38] VITALS: BP 142/62; PULSE 88; O2SAT 99; BMI 26.3
--- NOTE | 2025-02-15 08:38 | A.OFFVIS_ITS ---
Vital Signs 02/15/25 08:38 Height 5 ft 5 in Weight 158 lb BMI 26.3 BP 142/62 H Blood Pressure Location Rt brachial Position Sitting Pulse 88 Pulse Source Pulse Oximeter Pulse Oximetry (%) 99 Oxygen Delivery Method Room Air Intake Visit Reasons: GERD mgmt. ERROL 2022. Intake Note: Est pt for GERD + CIC mgmt. ERROL 2022 CC: C.O. GERD + throat irritation, as well as intermittent epigastric pain despite current therapies. [employer] Ascp Consultant Required: Yes [employer] Asc[employer] Consultant Services: [employer] Asc[employer] Consultant Present Oracle Ascp Consultant Name: Todd [id number] + [facility] [place]. Information Interpreted: clinical only Accompanied by: Self / Same As Patient Allergies No Known Allergies (No Known Allergies*) Allergy (Verified 02/15/25 08:38) HPI HPI GERD mgmt. ERROL 2022.: Details: LAST VISIT GERD (gastroesophageal reflux disease) Continue pantoprazole, will add sucralfate at night time. Patient was encouraged to avoid dietary triggers and late night snacking. Staying upright for minimal 3 hours after meals discussed with patient. Postprandial abdominal bloating Occasional postprandial abdominal bloating and epigastric discomfort postprandially. Discussed with patient will FODMAP diet, list of food recommended as well as list of food to avoid provided to patient. Patient reports epigastric discomfort postprandially will run transglutaminase., upper endoscopy showed normal duodenum IBS (irritable bowel syndrome) Low FODMAP diet discussed. Patient denies abdominal pain or cramping. Reports occasional postprandial loose stools. Better control of patient's blood sugars. Will check lipase, liver profile, vitamin D, B12, folate. I will see patient in 2 months, sooner on as needed basis. Patient is agreeable to this plan and verbalizes understanding of instructions. She was given the opportunity to ask questions and all questions answered. ? Thank you for allowing me to participate in her care Plan Orders Liver Panel 11/27/22 R10.9 - Unspecified abdominal pain Lipase 11/27/22 R10.9 - Unspecified abdominal pain Vitamin D 25-OH (D2 and D3) 11/27/22 E55.9 - Vitamin D deficiency, unspecified Vitamin B12 and Folate 11/27/22 R19.7 - Diarrhea, unspecified Transglutaminase Ab IgG 11/27/22 R10.9 - Unspecified abdominal pain Transglutaminase IgA 11/27/22 R10.9 - Unspecified abdominal pain New sucralfate 10 mL PO BEDTIME 400 mL 3RF K21.9 - Gastro-esophageal reflux disease without esophagitis TODAY'S VISIT Patient is here today for request visit. Patient reports that she has been having increased epigastric pain after eating. Patient reports that no matter what she eats she will have the pain. Reports occasional dyspepsia without dysphagia or odynophagia. Patient reports that she is moving her bowels well. She is taking senna. Currently patient is on pantoprazole. Patient reports that she never received a script for sucralfate. Patient reports that she occasionally has been snacking at bedtime. Patient denies any nausea or vomiting denies melena, hematochezia, unintentional weight loss or ribbon like stools. 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 Mother No problems noted. 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 Current occupational exposures/hazards: No Cognitive needs: No Hearing needs: No Vision needs: No Review of Systems Const Denies weight gain and Denies weight loss ENT Reports no additional complaints, Denies dysphagia and Denies odynophagia Card Reports no additional complaints Resp Reports no additional complaints GI Reports abdominal pain (Epigastric), Denies belching, Denies melena, Reports bloating, Denies dysphagia, Denies excessive flatus, Reports dyspepsia, Reports heartburn, Denies diarrhea, Reports loose stools, Denies nausea, Denies odynophagia and Denies vomiting Reports no additional complaints Musc Reports no additional complaints Neuro Reports no additional complaints Psych Reports no additional complaints Endo Reports no additional complaints Physical Exam Vital Signs: Last Vital Signs Pulse 88 02/15/25 08:38 BP 142/62 H 02/15/25 08:38 Pulse Ox 99 02/15/25 08:38 Oxygen Delivery Method Room Air 02/15/25 08:38 BMI result Body Mass Index 26.3 Const General: healthy appearing, no acute distress and well developed Nutritional Appearance: well nourished Orientation/consciousness: patient oriented x3 HEENT Head: Yes normal to inspection, Yes normocephalic and Yes atraumatic Face and sinus: Yes normal facial exam Mouth: Normal oral and palatal mucosa present Throat: Yes posterior oropharynx normal, Yes tonsils normal and Yes uvula midline Eyes General: appearance normal, both eyes and all related structures Neck Neck: Yes normal visual inspection, Yes full ROM and Yes trachea midline Thyroid: Thyroid normal Resp Effort & Inspection: normal respiratory effort, able to speak in complete sentences, no tracheal deviation and symmetric chest movement Auscultation: clear to auscultation bilaterally Cardio Rate: regular rate Heart sounds: S1 normal heart sound present and S2 normal heart sound present GI Inspection: Yes normal to inspection and No distended Palpation (GI): Soft to palpation, not firm, nontender and No hepatosplenomegaly present Auscultation: normal bowel sounds General: Yes no CVA tenderness Back/Spine/Pelvis Back: no CVA tenderness Skin General skin exam: elasticity normal, turgor normal and dry skin Neuro General: patient oriented x3 Psych Appearance: grossly normal Mental Status: mental status grossly normal Speech and movement: Normal speech and movement present Affect: normal affect Assessment & Plan Assessment & Plan (1) GERD (gastroesophageal reflux disease): Code(s): K21.9 - Gastro-esophageal reflux disease without esophagitis Category: Medical Qualifiers: Esophagitis presence: esophagitis presence not specified Qualified Co de(s): K21.9 - Gastro-esophageal reflux disease without esophagitis (2) Transaminitis: Code(s): R74.01 - Elevation of levels of liver transaminase levels Category: Medical (3) Postprandial abdominal bloating: Code(s): R14.0 - Abdominal distension (gaseous) (4) Postprandial epigastric pain: Code(s): R10.13 - Epigastric pain Plan Patient will continue pantoprazole in the morning and will start taking sucralfate at bedtime. Discussed with patient avoiding dietary triggers and late night snacking. Patient reports abdominal bloating. Low FODMAP diet discussed with patient. List of food recommended as well as list of food to avoid given to patient. Transaminitis in December of 2024 will repeat liver panel. Patient will follow-up in 3-4 months. Patient is agreeable to plan plan of care and verbalizes understanding of instructions. She was given the opportunity to ask questions and all questions answered. Thank you for allowing me to participate in her care Orders: Orders Liver Panel Today R74.01 - Elevation of levels of liver transaminase levels Medications: New sucralfate 1 g PO BEDTIME 30 tabs 4RF R19.7 - Diarrhea, unspecified Discontinued sucralfate Discontinued Reason: Doctor's Order 10 mL PO BEDTIME 400 mL 3RF K21.9 - Gastro-esophageal reflux disease without esophagitis Coding Level of Care Code Est Pt Level 4 (69790) Complex EM visit Add On G2211 Diagnoses Gastroesophageal reflux disease, unspecified whether esophagitis present K21.9 Esophagitis presence: esophagitis presence not specified Transaminitis R74.01 Postprandial abdominal bloating R14.0 Postprandial epigastric pain R10.13 Time Spent (min) 35 Comment 25 minutes spent with patient and additional 10 minutes spent reviewing her records
--- OUTSIDE RECORDS SUMMARY | 2025-02-15 08:56 | XMS_ITS | Clinical Summary ---
Author Organization [facility] Address [address] [place] [address] Care Team Providers Care Crematorium Operator Name Role Phone Unavailable Primary Care Provider [...] (2 of 2 - PCV) 04/16/2018 04/16/2017 Alcohol and Drug Screen 05/17/2024 Depression Annual Screen 05/17/2024 Bone Density Screening 08/12/2024 Falls Prevention 08/12/2024 Alp-EVLEP-89 (3 - season) 2025 021, 09/12/2020 Imm-Influenza (#1) 2025 03/26/2020, 1 06/18/2018, 03/31/2018, Additional history exists Imm-DTaP/Tdap/Td (2 - Td or Tdap) 07/16/2026 017 Insurance [facility] [email or web address] PLAN Member Subscriber Plan / Payer (Ef fective 2020-Present) Name:Kailey Reynoso Relation to Subscriber:Self Name:Kailey Reynoso Payer ID:[id number] Type:Medicaid Address: [facility] [address] [place] [address]
--- OUTSIDE RECORDS SUMMARY | 2025-02-15 08:56 | XMS_ITS | Clinical Summary ---
Author Organization [employer] Address [address] [place] [address] Care Team Providers Care Dispensing And Measuring Optician Name Role Phone Unavailable Primary Care Provider [...] 07/15/2018 01/11/2018, 07/13/2017 COVID-19 Vaccine ( season) 2025 04/02/2022, 10/10/2020, 09/12/2020 Influenza Vaccine (#1) 2025 [...] Most Recently Relevant to Health Maintenance Insurance [facility] [employer] STAND ADULT
--- OUTSIDE RECORDS SUMMARY | 2025-02-15 08:56 | XMS_ITS | Clinical Summary ---
Author Organization [facility] Address [address] [place] [id number] Phone Care Team Providers Care Tag Machine Operator Name Role Phone Meg Penn MD Primary [...] HEPATITIS C SCREENING 08/12/1977 HIV ONE-TIME SCREENING (18-65 YEARS) 08/12/1977 MAMMOGRAM 1999 COLOGUARD 08/12/2004 COLONOSCOPY 08/12/2004 COLORECTAL CANCER SCREENING 08/12/2004 FIT TEST 08/12/2004 FOBT 08/12/2004 SIGMOIDOSCOPY 08/12/2004 VIRTUAL COLONOSCOPY 08/12/2004 ZOSTER VACCINES (1 of 2) 08/12/2009 PNEUMOCOCCAL VACCINES (50+ years) (2 of 2 - PCV) 04/16/2018 04/16/2017 OSTEOPOROSIS SCREENING INITIAL (ONE-TIME) 08/12/2024 INFLUENZA VACCINE (#1) 2024 , 04/17/2019, 03/31/2018, Additional history exists COVID-19 VACCINE (3 - 2024- season) 2025 10/10/2020, 09/12/2020 Adult Td,Tdap Booster 07/16/2026 07/16/2016 RSV VACCINE (1 - 1-dose 75+ series) 08/12/2034 SMOKING STATUS SCREENING (Once After 26 Yrs) Completed 06/21/2017 HEPATITIS A [...] topic Medical Devices Not on file Insurance White Source O White Source [employer] White Source O White Source O White Source O White Source O White Source O White Source O White Source O Care Teams Tag Machine Operator Relationship Specialty Start Date End Date Meg Penn MD [address] [place] [address] PCP - General 03/02/17 Additional Source Comments The information contained in this document represents components of the legal health record. It is not the complete legal health record.[facility]
--- OUTSIDE RECORDS SUMMARY | 2025-02-15 08:56 | XMS_ITS | Patient Health Record ---
Author Organization [facility] Address [address] [place] [address] Care Team Providers Care Vp Of Customer Experience Strategy Name Role Phone Meg Penn Primary Care Provider Haris Zhou [phone] Reason For Referral No Information Medications Medication [...] Problem Status W/U Status Risk Notes Problem [id number] Encounter for screening for malignant neoplasm of colon (Z12.11) Active confirmed Problem [id number] History of adenomatous polyp of colon (Z86.010) Active confirmed Problem [id number] Abdominal bloating (R14.0) Active confirmed Problem 20839983 Abdominal gas pain (R14.1) Active confirmed Plan Of Treatment Future Test Test Name Order Date COLONOSCOPY 01/18/2018 Insurance Providers Payer Name Payer Address Payer Phone Subscriber Number Group Number Insured Name Patient Relationship to Insured Coverage Start Date Coverage End Date [facility] [address] [address] [place], [place] [id number] HELADIO DEVINE Self - patient is the insured Medical (General) History Medical History History ICD Code Hypertension IDDM Hyperlipidemia 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 Qureshi--had surgery as below Denies MA,CVA,Lung disease,renal disease Surgical History Surgery Date(Month/Year) Tubal ligation JUDITH with BSO Right colectomy in 2015 for the flat tubular adenoma in the cecum as above--- no sign of any malignancy within the polyp Cholecystectomy 1994 Breast reduction 2017
== END 2025-02-15 09:06 | disposition home or self-care (01) ==
LOC: HO.HGI 08:37
PROVIDERS: PCP Internal Medicine; Visit Provider Nurse Practitioner Family
DX: K21.9 Gastro-esophageal reflux disease without esophagitis (principal); R74.01 Elevation of levels of liver transaminase levels; R14.0 Abdominal distension (gaseous); R10.13 Epigastric pain
CPT/HCPCS: 99214; G2211

== ENCOUNTER 2025-02-15 12:05 | Outpatient (REF) | payer MEDICARE, MEDICAID, SELFPAY ==
--- NOTE | ~2025-02-15 | MM_ITS ---
EXAMINATION: DXA BONE DENSITY AXIAL HISTORY: Z78.0 - Asymptomatic menopausal state TECHNIQUE: CerRx Dual energy absorptiometry (DEXA) of the lumbar spine, total left hip, and femoral neck was performed. COMPARISON: There are no prior studies for comparison. FINDINGS: The bone mineral density of the lumbar spine is 1.024 g/cm2, corresponding to a T-score of -1.3, and a Z-score of 0.0. This is indicative of osteopenia. The bone mineral density of the left total hip is 0.990 g/cm2, corresponding to a T-score of -0.1, and a Z-score of 0.9. This is indicative of normal bone mineral density. The bone mineral density of the left femoral neck is 0.913 g/cm2, corresponding to a T-score of -0.9, and a Z-score of 0.4. This is indicative of normal bone mineral density. FRACTURE RISK: The FRAX index suggests a risk of major osteoporotic fracture of 4.4%, and of hip fracture 0.3%. MM/XR DEXA axial skeleton IMPRESSION: Based on bone mineral density, and according to World Health Organization (WHO) criteria, the diagnosis is consistent with osteopenia. Statistically, 68% of repeat scans fall within 1 SD (+/- 0.010 g/cm2 for AP spine L1-L4) and 1 SD (+/- 0.012 g/cm2 for femur total) FRAX is a trademark of the [employer]'s [place] for Metabolic Bone Disease, a World Health Organization (WHO) Collaborating Center. Electronically signed by: Haris Gandhi MD 02/16/2025 07:02 AM EDT
== END 2025-02-15 12:06 | disposition home or self-care (01) ==
LOC: HO.MAMMO 12:05
PROVIDERS: PCP Internal Medicine; Visit Provider Internal Medicine
DX: Z12.31 Encounter for screening mammogram for malignant neoplasm of breast (principal); Z13.820 Encounter for screening for osteoporosis; Z78.0 Asymptomatic menopausal state; K21.9 Gastro-esophageal reflux disease without esophagitis; R10.13 Epigastric pain; R14.0 Abdominal distension (gaseous); R74.01 Elevation of levels of liver transaminase levels
CPT/HCPCS: 77063; 77067; 77080; 99212

== ENCOUNTER → 2025-02-15 13:00 | Outpatient (BNV) | payer MEDICARE, MEDICAID, SELFPAY | PROVIDERS: PCP Internal Medicine; Visit Provider Radiology Diagnostic Radiology | DX: E28.39 Other primary ovarian failure (principal) | CPT/HCPCS: 77080 ==

== ENCOUNTER 2025-03-12 14:17 | Outpatient (AMB) | payer MEDICARE, MEDICAID, SELFPAY ==
--- NOTE | 2025-03-12 14:33 | MHC.OFFVIS ---
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 Interactive Digital Media Specialist Required: Yes Interactive Digital Media Specialist Language: Design Inserter Name: toby/ [email or web address] Accompanied by: Self / Same As Patient Allergies No Known Allergies (No Known Allergies*) Allergy (Verified 02/15/25 08:38) Medication List - Last Reconciled 03/12/25 by Warren Trinidad MD acetaminophen (Tylenol Extra Strength) 500 mg PO Q6H PRN aspirin 81 mg PO DAILY 90 days atorvastatin 80 mg PO BEDTIME 90 days blood sugar diagnostic (FreeStyle Precision Jarod Strips) As directed three times a day blood sugar diagnostic (FreeStyle Lite Strips) use 1 strip once a day blood sugar diagnostic (Accu-Chek Guide test strips) Use 1 test trip once a day blood-glucose meter (FreeStyle Marquette Lite kit) As directed 3x/day blood-glucose meter (Accu-Chek Guide Glucose Meter) As directed canagliflozin-metformin 50-500 mg ER (Invokamet XR) 2 tabs (2 x 50-500 mg) PO DAILY 30 days cholecalciferol (vitamin D3) 25 mcg PO DAILY 30 days cyanocobalamin (vitamin B-12) 1,000 mcg sublingual DAILY 30 days cyclobenzaprine 5 mg PO Q8H PRN 5 days diazepam 2 mg PO BEDTIME PRN docusate sodium 100 mg PO BEDTIME dulaglutide (Trulicity) 4.5 mg (0.5 mL) subcut QWEEK evolocumab (Repatha SureClick) 140 mg subcut Q2W 30 days ezetimibe 10 mg PO DAILY 90 days fenofibrate 54 mg PO DAILY 90 days insulin glargine U-300 conc 55 units (0.1833 mL) subcut QAM 90 days ketorolac 10 mg PO TID PRN lancets As directed daily lancets (FreeStyle Lancets) Three times a day lancets (Accu-Chek Softclix Lancets) Use 1 lancet once a day lidocaine 5% (Lidoderm) 1 patch topical DAILY PRN MDD remove after 12 hours losartan 25 mg PO DAILY 90 days metoprolol succinate ER 25 mg PO DAILY 90 days naproxen 500 mg PO BID PRN 10 days pantoprazole 40 mg PO DAILY pen needle, diabetic daily ropinirole 0.25 mg PO BEDTIME sennosides (Natural Senna Laxative) 8.6 mg PO BEDTIME simethicone 180 mg PO BID PRN sucralfate 1 g PO BEDTIME ticagrelor (Brilinta) 90 mg PO BID 90 days HPI Comments Details: Pleasant 64 year lady who is here for 1st office visit. In November 2024 she presented to [facility] where anterior wall NM underwent cardiac catheterization by Dr. Steve Dubose. She was noticed to have 70% RCA stenosis and plaque rupture in the mid LAD involving a diagonal branch. This was treated with drug-eluting stent and kissing balloon inflation was done in the diagonal branch. She had VFib arrest and was defibrillated. Echocardiography showed EF 40-45%. She did well after that and is here for 1st office visit. She is denying any chest pain or shortness of breath. She has been noticed to have significantly elevated LDL of 178 and she is currently taking ezetimibe, fenofibrate atorvastatin and Evolut commands. She is on aspirin and Brilinta. She is saying she is taking medications but sometimes misses them. We discussed about compliance with medications. Blood pressure is well controlled. 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 Mother No problems noted. 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 Current occupational exposures/hazards: No Cognitive needs: No Hearing needs: No Vision needs: No Review of Systems Const Denies chills, Denies fatigue, Denies fever(s), Denies frequent falls, Denies weakness, Denies weight gain and Denies weight loss ENT Denies dizziness Card Denies chest pain, Denies leg edema, Denies lightheadedness, Denies palpitations, Denies dyspnea, Denies dyspnea on exertion and Denies orthopnea Resp Denies cough, Denies dyspnea and Denies dyspnea on exertion GI Denies bloating and Denies change in bowel habits Musc Denies muscle weakness, Denies numbness and Denies tingling Neuro Denies dizziness, Denies frequent falls, Denies numbness, Denies tingling and Denies weakness Endo Denies fatigue and Denies palpitations Physical Exam Vital Signs: Last Vital Signs Pulse 82 03/12/25 14:35 BP 120/60 03/12/25 14:35 BMI result Body Mass Index 26.6 GENERAL APPEARANCE: in no acute distress, pleasant. NECK: no carotid bruit, no jugular venous distention. SKIN: no suspicious lesions, warm and dry. HEART: no murmurs, regular rate and rhythm. LUNGS: clear to auscultation bilaterally. ABDOMEN: soft, nontender. EXTREMITIES: no edema. PERIPHERAL PULSES: equal. NEUROLOGIC: No gross deficits, AAO X 3 Office Procedures EKG Details: Sinus rhythm 82 beats per minute, rightward axis, nonspecific T-wave changes, QTC 450 milliseconds. [id number], Complete Assessment & Plan Assessment & Plan (1) Anterior wall myocardial infarction: Code(s): I21.09 - ST elevation (STEMI) myocardial infarction involving other coronary artery of anterior wall Category: Medical (2) Hypertension: Code(s): I10 - Essential (primary) hypertension Category: Medical Qualifiers: Hypertension type: essential hypertension Qualified Code(s): I10 - Essential (primary) hypertension (3) Ischemic cardiomyopathy: Code(s): I25.5 - Ischemic cardiomyopathy Category: Medical Plan Pleasant 64 year lady who is here for 1st office visit. She had anterior wall NM in November 2024 underwent primary PCI to LAD. She is on aspirin and Brilinta which improved continued for 1 year. After 1 year we will continue aspirin monotherapy. She has significant hyperlipidemia with LDL of 178. She is currently on atorvastatin, ezetimibe, fenofibrate and Evolocumab. Her triglycerides were 538 in November 2024. We will repeat the fasting lipid panel. She had mild cardiomyopathy based on echocardiography done in November 2024. She is on losartan and metoprolol succinate. She is also on canagliflozin and metformin combination. We will repeat echocardiography to reassess ejection fraction. Referring her for cardiac rehabilitation. Blood pressure is well controlled. She has some residual disease in RCA which is a codominant vessel and there was 70% stenosis. Currently she is denying any exertional symptoms and I will medically manage this. Follow up with us in 3 months. Thank you for allowing me to participate in the care of your patient. Please feel free to contact me if you have any questions. Orders: Orders CA echo transthorac w con Today Z95.5 - Presence of coronary angioplasty implant and graft Cardiac Rehab Today Z95.5 - Presence of coronary angioplasty implant and graft, Z98.61 - Coronary angioplasty status Lipid Panel Today Z95.5 - Presence of coronary angioplasty implant and graft Coding Level of Care Code New Pt Level 4 (77873) Diagnoses Anterior wall myocardial infarction I21.09 Essential hypertension I10 Hypertension type: essential hypertension Ischemic cardiomyopathy I25.5 CPT Codes EKG - CPT: 65880-[id number], Complete ([id number])
[2025-03-12 14:35] VITALS: BP 120/60; PULSE 82; BMI 26.6
--- OUTSIDE RECORDS SUMMARY | 2025-03-12 17:55 | XMS_ITS | Clinical Summary ---
Author Organization [facility] Address [address] [place] [id number] Phone Care Team Providers Care Technology Support Analyst Name Role Phone Meg Penn MD Primary [...] topic Medical Devices Not on file Insurance [employer] O Care Teams Technology Support Analyst Relationship Specialty Start Date End Date Meg Penn MD [address] [place] [address] PCP - General 03/02/17 Additional Source Comments The information contained in this document represents components of the legal health record. It is not the complete legal health record.[facility]
--- OUTSIDE RECORDS SUMMARY | 2025-03-12 17:55 | XMS_ITS | Clinical Summary ---
Author Organization [facility] Address [address] [place] [address] Care Team Providers Care Professional Benefits Sales Consultant Name Role Phone Unavailable Primary Care Provider [...] Bone Density Screening 08/12/2024 Falls Prevention 08/12/2024 Bdl-IYLZQ-03 (3 - season) 2025 021, 09/12/2020 Imm-Influenza (#1) 2025 03/26/2020, 1 06/18/2018, 03/31/2018, Additional history exists Imm-DTaP/Tdap/Td (2 - Td or Tdap) 07/16/2026 017 Insurance [facility] [employer] PLAN Member Subscriber Plan / Payer (Ef fective 2020-Present) Name:Kailey Reynoso Relation to Subscriber:Self Name:Kailey Reynoso Payer ID:[id number] Type:Medicaid Address: [facility] [address] [place] [address]
--- OUTSIDE RECORDS SUMMARY | 2025-03-12 17:55 | XMS_ITS | Patient Health Record ---
Author Organization [facility] Address [address] [place] [address] Care Team Providers Care Director University Name Role Phone Meg Penn Primary Care Provider Haris Zhou [phone] Reason For Referral No Information Medications Medication SIG (Take, Route, Frequency, Duration) Notes Start Date End Date Status Dulcolax (colon prep) 5 MG take at 3:00 p.m and 7:00p.m. Orally two tablets twice a day for one day; Duration: 1 day 01/19/2018 Active MiraLax (colon prep) 8.3 ounce ((238) grams mixed with Gatorade or Crystal Light orally begin at 5:00 p.m. the day before the procedure; Duration: 1 day 01/19/2018 Active metFORMIN HCl ER [...] Problem Status W/U Status Risk Notes Problem Screening for malignant neoplasm of colon (680810847) Encounter for screening for malignant neoplasm of colon (Z12.11) Active confirmed Problem History of adenomatous polyp of colon (459335405) History of adenomatous polyp of colon (Z86.010) Active confirmed Problem Abdominal bloating (075818038) Abdominal bloating (R14.0) Active confirmed Problem Flatulence, eructation and gas pain (417464505) Abdominal gas pain (R14.1) Active confirmed Plan Of Treatment Future Test Test Name Order Date COLONOSCOPY 01/18/2018 Insurance Providers Payer Name Payer Address Payer Phone Subscriber Number Group Number Insured Name Patient Relationship to Insured Coverage Start Date Coverage End Date [facility] [address] [address] [place], [place] [id number] HELADIO DEVINE Self - patient is the insured Medical (General) History Medical History History ICD Code Hypertension IDDM Hyperlipidemia 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 Qureshi--had surgery as below Denies [place],CVA,Lung disease,renal disease Surgical History Surgery Date(Month/Year) Tubal ligation JUDITH with BSO Right colectomy in 2015 for the flat tubular adenoma in the cecum as above--- no sign of any malignancy within the polyp Cholecystectomy 1994 Breast reduction 2016
--- OUTSIDE RECORDS SUMMARY | 2025-03-12 17:55 | XMS_ITS | Clinical Summary ---
Author Organization [employer] Address [address] [facility] [address] [place] [address] Care Team Providers Care Compliance Investigator Name Role Phone Unavailable Primary Care Provider [...] Most Recently Relevant to Health Maintenance Insurance [facility] STANDARD DENTAL-[facility] MEDICAID STAND ADULT
== END 2025-03-12 14:59 | disposition home or self-care (01) ==
LOC: HO.HCS 14:18
PROVIDERS: PCP Internal Medicine; Visit Provider Internal Medicine Cardiovascular Disease
DX: I21.09 ST elevation (STEMI) myocardial infarction involving other coronary artery of anterior wall (principal); I10 Essential (primary) hypertension; I25.5 Ischemic cardiomyopathy
CPT/HCPCS: 93010; 99204

== ENCOUNTER → 2025-03-12 14:17 | Outpatient (BNVA) | payer OTHER, SELFPAY | PROVIDERS: PCP Internal Medicine; Visit Provider Internal Medicine Cardiovascular Disease | DX: I21.09 ST elevation (STEMI) myocardial infarction involving other coronary artery of anterior wall (principal); Z95.5 Presence of coronary angioplasty implant and graft; I10 Essential (primary) hypertension; I25.5 Ischemic cardiomyopathy; Z79.82 Long term (current) use of aspirin; E78.5 Hyperlipidemia, unspecified | CPT/HCPCS: 93005; 99202 ==

== ENCOUNTER → 2025-04-11 07:49 | Outpatient (REF) | payer OTHER, SELFPAY ==
--- NOTE | 2025-04-11 07:54 | CA_ITS ---
Transthoracic Echocardiogram Patient (Last, First, Middle): Kailey Gomes, Gender: F Date of : 1960 Age: 64 Procedure Date: 04/11/2025 Procedure Type: Transthoracic Echocardiogram Location: OP Height: 165.1 cm Weight: 71.67 kg BSA: 1.79 m2 Heart Rate: 79 bpm BP: 120 / 68 mmHg Plate Printer: JAMES Referring MD: Warren Trinidad MD Sheet Taker: Warren Trinidad MD Symptoms: Z95.5 - Presence of coronary angioplasty implant and graft Study Quality: Adequate ECG Rhythm: Sinus Conclusions: - The left ventricular systolic function is normal. The calculated ejection fraction is 62% by biplane method. - No obvious valvular pathology seen on this study. Findings Left Ventricle Normal left ventricular cavity size. There is normal left ventricular wall thickness. The left ventricular systolic function is normal. The calculated ejection fraction is 62% by biplane method. There is no evidence of regional wall motion abnormalities. Diastolic function is normal for age. Right Ventricle Normal right ventricular cavity size and systolic function. Atria Both atria are normal in size. Aortic Valve There is a normal trileaflet aortic valve. There is no aortic valve stenosis. There is no aortic valve regurgitation. Mitral Valve The mitral valve appears normal. There is no mitral valve regurgitation. There is no mitral valve stenosis. Pulmonic Valve The pulmonic valve is likely normal. Tricuspid Valve There is mild tricuspid valve regurgitation. There is no evidence of pulmonary hypertension. Great Vessels The asc aorta is normal in size. Venous The inferior vena cava is normal in size and collapses greater than 50% with inspiration. Pericardium/Pleural There is no evidence of pericardial effusion. Prior Study Comparison No prior study available for comparison. Recommendations, Care & Conclusions No obvious valvular pathology seen on this study. Measurements 2D Linear Measurements IVSd: 0.83 0.6-0.9/0.6-1.0 cm LVIDd: 4.49 3.9-5.3/4.2-5.9 cm LVIDd Index: 2.51 2.4-3.2/2.2-3.1 cm/m2 LVIDs: 3.14 2.0-3.6 cm LVPWd: 0.64 0.7-1.1 cm LA Diam: 3.30 2.7-3.8/3.0-4.0 cm LAIDs Index: 1.84 1.5-2.3 cm/m2 LV Mass: 125.82 67-162/88-224 g LV Mass Index: 70.29 43-95/49-115 g/m2 LVOT Diam: 2.00 3.0+(-)1.3 cm 2D Systolic Function EF 4C: 61.50 >55% EF 2C: 62.70 >55% EF BiP: 61.90 >55% Mitral Valve MV Pk E: 1.03 MV PK A: 0.85 MV Decel Time: 185.00 E/A: 1.20 E'Lateral: 7.40 E'Medial: 6.96 E/E' Med: 14.80 E/E' Lat: 13.90 PHT: 54.00 MVA PHT: 4.07 Decel [place]: 5.56 Aortic Valve AoV Pk Mau: 1.21 AoV Pk Grad: 6.00 MARILYN: 2.46 LVOT LVOT Pk Mau: 0.95 LVOT Mn Mau: 0.68 LVOT VTI: 0.24 LVOT Pk Grad: 4.00 LVOT Mn Grad: 2.00 LVOT Diam: 2.00 LVOT Area: 3.14 Diastolic Function MV Pk E: 1.03 MV Pk A: 0.85 E/A: 1.20 E'Medial: 6.96 E/E' Med: 14.80 E' Laterial: 7.40 E/E' Lat: 13.90 Right Ventricle TAPSE (mm): 25.40 TVS' Mau: 10.90 Tricuspid Valve TR Pk Mau: 2.27 TR Pk Grad: 21.00 RA Press: 3.00 RVSP: 24.00 Great Vessels Aorta Sinus of Valsalva: 2.40 2.0-3.5 cm Ao Asc: 2.90 2.1-3.4 cm Ao Arch: 2.50 Pulmonary Veins Pulm Vein S/D 1.20 Pulmonary Valve PV Pk Mau: 0.91 Peak PV Grad: 3.00 Updated in Other Vendor System with Status of Final Favio Moon MD electronically signed on 04/11/2025 1:34:27 PM with status of Final
--- OUTSIDE RECORDS SUMMARY | 2025-04-11 07:55 | XMS_ITS | Patient Health Record ---
Author Organization [facility] Address [address] [place] [address] Care Team Providers Care Milking Worker Name Role Phone Meg Penn Primary Care Provider Haris Zhou [phone] Reason For Referral No Information Medications Medication SIG (Take, Route, Frequency, Duration) Notes Start Date End Date Status Dulcolax (colon prep) 5 MG Tablet Delayed Release take at 3:00 p.m and 7:00p.m. Orally [...] stop date) Never Smoker NA - NA Social History Drugs/Alcohol: Social Info Question Answer Notes Alcohol Screen Did you have a drink containing alcohol in the past year? 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: Nonsmoker; no sig alcohol Problems Problem Type SNOMED Code ICD Code Onset Dates Problem Status W/U Status Risk Notes Problem Screening for malignant neoplasm of colon (264283217) Encounter for screening for malignant neoplasm of colon (Z12.11) Active confirmed Problem History of adenomatous polyp of colon (793114265) History of adenomatous polyp of colon (Z86.010) Active confirmed Problem Abdominal bloating (547734979) Abdominal bloating (R14.0) Active confirmed Problem Flatulence, eructation and gas pain (374510216) Abdominal gas pain (R14.1) Active confirmed Plan Of Treatment Future Test Test Name Order Date COLONOSCOPY 01/18/2018 Insurance Providers Payer Name Payer Address Payer Phone Subscriber Number Group Number Insured Name Patient Relationship to Insured Coverage Start Date Coverage End Date 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 Qureshi--had surgery as below Denies [place],CVA,Lung disease,renal disease Surgical History Surgery Date(Month/Year) Tubal ligation JUDITH with BSO Right colectomy in 2015 for the flat tubular adenoma in the cecum as above--- no sign of any malignancy within the polyp Cholecystectomy 1994 Breast reduction 2016
--- OUTSIDE RECORDS SUMMARY | 2025-04-11 07:55 | XMS_ITS | Clinical Summary ---
Author Organization [facility] Address [address] [facility] [address] [place] [phone] Phone Care Team Providers Care Educational Technologist Name Role Phone Meg Penn MD Primary [...] topic Medical Devices Not on file Insurance [employer] O Care Teams Educational Technologist Relationship Specialty Start Date End Date Meg Penn MD [address] [place] [address] PCP - General 03/02/17 Additional Source Comments The information contained in this document represents components of the legal health record. It is not the complete legal health record.[facility]
--- OUTSIDE RECORDS SUMMARY | 2025-04-11 07:55 | XMS_ITS | Clinical Summary ---
Author Organization [employer] Address [address] [facility] [address] [place] [address] Care Team Providers Care Clinical Lab Assistant Name Role Phone Unavailable Primary Care Provider [...] Most Recently Relevant to Health Maintenance Insurance [facility] STANDARD DENTAL-[facility] MEDICA[facility] STAND ADULT
== END ==
LOC: HO.CARD 07:49
PROVIDERS: PCP Internal Medicine; Visit Provider Internal Medicine Cardiovascular Disease
DX: Z95.5 Presence of coronary angioplasty implant and graft (principal)
CPT/HCPCS: 93306

== ENCOUNTER → 2025-04-11 07:54 | Outpatient (BNV) | payer OTHER, SELFPAY | PROVIDERS: PCP Internal Medicine; Visit Provider Internal Medicine | DX: Z95.5 Presence of coronary angioplasty implant and graft (principal) | CPT/HCPCS: 93306 ==

== ENCOUNTER 2025-04-13 20:08 | Emergency (ER) | payer OTHER, SELFPAY ==
[2025-04-13 20:26] VITALS: BP 163/72; PULSE 90; RESP 18; TEMP 36.7; O2SAT 97; BMI 27.1
[2025-04-13 20:45] LABS: MANUAL DIFF FLAG NO
[2025-04-13 20:47] LABS: Hematocrit 36.4 % (37.0-47.0); Hemoglobin 12.8 g/dl (12.0-16.0); Imm Gran Abs Auto 0.02 X10*3/uL (0.00-0.03); Imm Gran Pct Auto 0.2 % (0.0-0.4); Lymphocytes Absolute Auto 2.3 X10*3/uL (1.2-4.9); Mean Corpuscular HGB Conc 35.2 g/dl (31.0-35.0); Mean Corpuscular Hemoglobin 29.8 pg (27.0-33.0); Mean Corpuscular Volume 84.8 fL (80.0-98.0); NRBC Abs Auto 0.000 X10*3/uL (0.0-0.012); NRBC Pct Auto 0.0 /100WBC (0.0-0.2); Platelet Count 228 X10*3/uL (160-400); Red Blood Count 4.29 X10*6/uL (4.20-5.50); White Blood Count 10.0 X10*3/uL (4.8-10.8)
--- OUTSIDE RECORDS SUMMARY | 2025-04-13 20:51 | XMS_ITS | Patient Health Record ---
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: Nonsmoker; no sig alcohol Problems Problem Type SNOMED Code ICD Code Onset Dates Problem Status W/U Status Risk Notes Problem Screening for malignant neoplasm of colon (845262479) Encounter for screening for malignant neoplasm of colon (Z12.11) Active confirmed Problem History of adenomatous polyp of colon (182343736) History of adenomatous polyp of colon (Z86.010) Active confirmed Problem Abdominal bloating (561433390) Abdominal bloating (R14.0) Active confirmed Problem Flatulence, eructation and gas pain (392093337) Abdominal gas pain (R14.1) Active confirmed Plan Of Treatment Future Test Test Name Order Date COLONOSCOPY 01/18/2018 Insurance Providers Payer Name Payer Address Payer Phone Subscriber Number Group Number Insured Name Patient Relationship to Insured Coverage Start Date Coverage End Date [facility] [address] [address] [place], [place] [id number] HELADIO DEVINE Self - patient is the insured Medical (General) History Medical History History ICD Code Hypertension IDDM Hyperlipidemia 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 Qureshi--had surgery as below Denies [place],CVA,Lung disease,renal disease Surgical History Surgery Date(Month/Year) Tubal ligation JUDITH with BSO Right colectomy in 2015 for the flat tubular adenoma in the cecum as above--- no sign of any malignancy within the polyp Cholecystectomy 1994 Breast reduction 2016
--- OUTSIDE RECORDS SUMMARY | 2025-04-13 20:51 | XMS_ITS | Clinical Summary ---
Author Organization [employer] Address [address] [facility] [address] [place] [address] Care Team Providers Care Specialist Employee Labor Relations Name Role Phone Unavailable Primary Care Provider [...] Most Recently Relevant to Health Maintenance Insurance [facility] STANDARD DENTAL-[facility] MEDICAID STAND ADULT
--- OUTSIDE RECORDS SUMMARY | 2025-04-13 20:51 | XMS_ITS | Clinical Summary ---
Author Organization [facility] Address [address] [facility] [address] [place] [phone] Phone Care Team Providers Care Sample Prep Technician Name Role Phone Meg Penn MD Primary [...] topic Medical Devices Not on file Insurance [employer] N[employer] O [employer]asse[employer] O [employer] N[employer] O Care Teams Sample Prep Technician Relationship Specialty Start Date End Date Meg Penn MD [address] [place] [address] PCP - General 03/02/17 Additional Source Comments The information contained in this document represents components of the legal health record. It is not the complete legal health record.[facility]
--- NOTE | 2025-04-13 20:52 | PC.NURSE ---
pt reports taking blood sugar at 5pm and it was above 400, then again at 530 pm and it was at 377. pt daughter at bedside. denies being sick recently or anyone at home being sick.
[2025-04-13 20:56] LABS: Glucose, Whole Blood 311 mg/dL (60-115)
[2025-04-13 20:59] LABS: Alanine Aminotransferase 71 U/L (0-31); Albumin Level 4.6 g/dL (3.5-5.0); Alkaline Phosphatase 166 U/L (39-117); Anion Gap 15 (12-20); Aspartate Amino Transferase 39 U/L (5-31); Blood Urea Nitrogen 19 mg/dL (9-16); Calcium 9.6 mg/dL (8.4-10.2); Carbon Dioxide 22 mmol/L (22-29); Chloride 103 mmol/L (96-108); Creatinine Clr Calc Pharmacy 55.8; Estimated Glomerular Filt Rate 55; Potassium 4.2 mmol/L (3.3-5.1); Sodium 136 mmol/L (135-145); Total Protein 8.5 g/dL (6.5-8.0)
--- NOTE | 2025-04-13 21:30 | ED_ITS ---
HPI - Recheck/Abnormal Lab/Rx General Chief Complaint: Recheck/Abnormal Lab/Rx Stated Complaint: Headache Time Seen by Provider: 04/13/25 21:07 Source: patient and family Mode of arrival: ambulatory Limitations: no limitations History of Present Illness ED Provider: Dr. Kat Eric HPI narrative: Patient comes to the emergency room accompanied by her daughter. According to the patient, patient came because her glucose has been elevated. Patient states that she ran out of [employer] ([employer]), and has been taking her 's metformin instead. Patient states that she used her usual dose of 50 units of insulin glargine in the morning. Tonight, patient's glucose was on the higher side and was hoping that it would work faster to decrease her blood sugar, and gave herself another dose of 50 units. also, patient states that she has slept in a futon and when she woke up, she started having right-sided back pain that radiates from the right side of the neck to the shoulder to the middle back only on the right side. Hurts with certain movements. Denies any falls or trauma Related Data Previous Rx's ?Medication ?Instructions ?Recorded lancets 33 gauge #100 ea 12/18/20 blood sugar diagnostic (FreeStyle #100 ea 04/08/21 Precision Jarod Strips) blood-glucose meter (FreeStyle #1 ea 04/23/21 [place] Lite kit) lancets 28 gauge (FreeStyle #100 ea 04/23/21 Lancets) evolocumab 140 mg/mL subcutaneous 140 mg subcut Q2W 30 days #3 mL 05/22/22 pen injector (Wes Fragoso) ropinirole 0.25 mg tablet 0.25 mg PO BEDTIME #30 tabs 03/12/23 docusate sodium 100 mg capsule 100 mg PO BEDTIME #90 c aps 06/03/23 diazepam 2 mg tablet 2 mg PO BEDTIME PRN muscle p ain #3 07/08/23 tabs ketorolac 10 mg tablet 10 mg PO TID PRN pain #7 tab s 07/08/23 pantoprazole 40 mg tablet,delayed 40 mg PO DAILY #90 t abs 12/06/23 release cyanocobalamin (vitamin B-12) 1,000 mcg sublingual BURKE LY 30 days 02/09/24 1,000 mcg sublingual tablet #30 tabs acetaminophen 500 mg tablet 500 mg PO Q6H PRN fever or pain 03/17/24 (Tylenol Extra Strength) #14 tabs cyclobenzaprine 5 mg tablet 5 mg PO Q8H PRN pain (scal e score 03/17/24 7-10) 5 days #14 tabs lidocaine 5 % topical patch 1 patch topical DAILY PRN pain #30 03/17/24 (Lidoderm) ea naproxen 500 mg tablet 500 mg PO BID PRN pain 10 da ys #20 03/17/24 tabs sennosides 8.6 mg tablet (Natural 8.6 mg PO BEDTIME co nstipation #90 06/19/24 Senna Laxative) tabs simethicone 180 mg capsule 180 mg PO BID PRN for cramp s #60 06/19/24 caps fenofibrate 54 mg tablet 54 mg PO DAILY 90 days #90 t abs 06/20/24 insulin glargine U-300 conc 300 55 unit (0.1833 mL) knight bcut QAM 90 06/20/24 unit/mL (1.5 mL) subcutaneous pen days #16.497 mL cholecalciferol (vitamin D3) 25 25 mcg PO DAILY 30 day s #30 caps 07/12/24 mcg (1,000 unit) capsule pen needle, diabetic 32 gauge x #100 ea 09/11/24 blood sugar diagnostic (FreeStyle #100 ea 12/14/24 Lite Strips) blood sugar diagnostic (Accu-Chek #100 ea 12/16/24 Guide test strips) blood-glucose meter (Accu-Chek #1 ea 12/16/24 Guide Glucose Meter) lancets (Accu-Chek Softclix #100 ea 12/16/24 Lancets) ezetimibe 10 mg tablet 10 mg PO DAILY 90 days #90 t abs 12/20/24 aspirin 81 mg tablet,delayed 81 mg PO DAILY 90 days #9 0 tabs 01/10/25 release losartan 25 mg tablet 25 mg PO DAILY 90 days #90 t abs 01/10/25 metoprolol succinate 25 mg 25 mg PO DAILY 90 days #90 tabs 01/10/25 tablet,extended release 24 hr ticagrelor 90 mg tablet (Brilinta) 90 mg PO BID 90 day s #180 tabs 01/10/25 atorvastatin 80 mg tablet 80 mg PO BEDTIME 90 days #90 tabs 01/15/25 dulaglutide 4.5 mg/0.5 mL 4.5 mg (0.5 mL) subcut QWEEK #2 mL 02/13/25 subcutaneous [facility] sucralfate 1 gram tablet 1 g PO BEDTIME #30 tabs 10/0 07/11 canagliflozin 50 mg-metformin ER 2 tab (2 x 50-500 mg) PO DAILY 30 03/27/25 500 mg tablet,extended release 24 days #60 ea hr (Invokamet XR) canagliflozin 50 mg-metformin ER 2 tab (2 x 50-500 mg) PO DAILY #10 04/13/25 500 mg tablet,extended release 24 ea hr (Invokamet XR) cyclobenzaprine 5 mg tablet 5 mg PO TID PRN muscle spa sm #10 04/13/25 tabs glucagon HCl 1 mg solution for 1 mg subcut Q20M PRN hy poglycemia 04/13/25 injection (Glucagon (HCl) #1 ea Emergency Kit) Allergies Allergy/AdvReac Type Severity Reaction Status Date / Time No Known Allergies (No Known Allergy Verified 04/13/25 20:32 Allergies*) Review of Systems 2 Review of Systems: Constitutional : No Weight loss, No Fever, No Chills, No Night Sweats, No Fatigue, No Malaise ENT/Mouth : No Hearing loss, No Ear Pain, No Nasal Congestion, No Sinus Pain, No Hoarseness, No sore throat, No Rhinorrhea, No Swallowing Difficulty Eyes: No Eye Pain, No Swelling, No Redness, No Foreign Body, No Discharge, No Vision Changes Cardiovascular : No Chest Pain, No SOB, No Dyspnea on Exertion, No Orthopnea, No Edema, No Palpitations Respiratory : No Cough, No Sputum, No Wheezing, No Smoke Exposure, No Dyspnea Gastrointestinal : No Nausea, No Vomiting, No Diarrhea, No Constipation, No abdominal Pain, No Hematochezia, No Melena Genitourinary : no irregular bleeding, No Dysuria, No Urinary Frequency, No Hematuria, No Urinary Incontinence, No Urgency, No Flank Pain, No Urinary Flow Changes, No Hesitancy Musculoskeletal : complaining of musculoskeletal pain on the right side of the back, No joint pain, No Myalgias, No Joint Swelling Skin : No Skin Lesions, No rash Neuro : No Weakness, No Numbness, No Paresthesias, No Loss of Consciousness, No Dizziness, No Headache Psych : No Anxiety/Panic, No Depression, No SI/HI/AH/VH, No Social Issues, Heme/Lymph: No Bruising, No Bleeding,No Lymphadenopathy Endocrine : complaining of hyperglycemia,No Polyuria, No Polydipsia, No Temperature Intolerance [facility] Past Medical History Medical History Right elbow pain Abnormal UGI series GERD (gastroesophageal reflux disease) Pernicious anemia Diabetic polyneuropathy associated with type 2 diabetes mellitus retirement (current) use of insulin Diabetes type 2, uncontrolled Hypovitaminosis D Right shoulder pain Dyslipidemia Diabetes Hypertension Surgical History (Reviewed 03/12/25 @ 14:38 by Tomasa Rossi [facility]) History of esophagogastroduodenoscopy (EGD) Hx of colonoscopy History of hemicolectomy History of appendectomy H/O: hysterectomy H/O tubal ligation Family History Family History (Reviewed 03/12/25 @ 14:38 by Tomasa Rossi [facility]) Father No problems noted. Mother No problems noted. Maternal Aunt Cancer Sister Breast cancer Social History Social History (Reviewed 03/12/25 @ 14:38 by Tomasa Rossi [facility]) Household Members: Spouse Housing: Apartment Alcohol intake: never Patient Tobacco Use Status: Never used Tobacco e-Cigarette/Vaping Use: Never Used Second Hand Smoke Exposure: Yes Advance Directives: No Advance Directives Information Provided: No service: No Current occupational status: employed Current occupation: [employer] Current occupational exposures/hazards: No Cognitive needs: No Hearing needs: No Vision needs: No Physical Exam 2 Exam: Exam: Appearance: Alert. Oriented X3. No acute distress. Eyes: Pupils equal, round and reactive to light. ENT: Pharynx normal. Neck: Normal inspection. Neck supple. No lymph nodes noted. No crepitus CVS: Normal heart rate and rhythm. Pulses normal. Normal S1 and S2 Respiratory: No respiratory distress. Breath sounds normal. No Wheezing. No rales Abdomen: Soft and nontender. No rigidity. No distention. back: Pain to palpation in the right side of the back over the trapezoid muscle distribution Skin: Skin warm and dry. Normal skin color. Normal skin turgor. Extremities: No lower extremity edema. No Lacerations. No Rash Neuro: Oriented X 3. No motor deficit. No sensory deficit. Moving all extremities. No slurred speech. CN 2 through 12 grossly intact Psych: calm, cooperative, normal affect Vital Signs: Vital Signs: Last Vital Signs Temp 98.0 F 04/13/25 20:26 Pulse 90 04/13/25 20:26 Resp 18 04/13/25 20:26 BP 163/72 H 04/13/25 20:26 Pulse Ox 97 04/13/25 20:26 O2 Del Method Room Air 04/13/25 20:26 BMI result Body Mass Index 27.1 Medications Administered Discontinued Medications Generic Name Dose Route Start Last Admin Trade Name Freq PRN Reason Stop Dose Admin Diazepam 2 mg 04/13/25 21:21 04/13/25 21:26 Diazepam 2 Mg Tablet PO 04/13/25 21:22 2 mg ONCE ONE Administration Medical Decision Making Medical Decision Making [facility] Narrative: my interpretation of labs: No significant abnormality patient's hematology and chemistry, glucose 311, chronically elevated LFTs. I reviewed patient's medical chart. Patient has history of my current infections in the past. Today, patient has no chest pain or shortness of breath. A transthoracic echocardiogram was done 2 days ago: Normal ventricular systolic function, ejection fraction is 62%, no obvious valvular pathology patient was given a dose of diazepam 2.5 mg p.o. to help with the muscle spasms. And so, I discussed with the patient that today she doubled up on a long- acting insulin. At this time, fortunately her glucose is a little bit on the higher side. However, it was discussed with the patient and her daughter that she needs to check her glucose overnight to make sure it does not drop significantly. patient needs to check her glucose frequently or if symptomatic for the next 24 hours. Both agree with plan. an emergency glucagon kit has been sent to the patient's pharmacy. Patient states that she ran out of her [employer] ([employer]) p.o. meds. They were sent to a pharmacy that is closed oblique we can. A small prescription was sent to a local [facility] pharmacy that will be open tomorrow. Patient and daughter agree with plan Differential Diagnosis Differential Diagnoses: The differential diagnosis associated with the presentation includes ( accidental insulin overdose/ misuse, hyperglycemia, musculoskeletal pain) Lab Data [facility] Lab Attestation statement: I reviewed the patient's lab results. 04/13/25 20:41 04/13/25 20:41 Labs: Lab Results 04/13/25 04/13/25 Range/Units 20:41 20:52 WBC 10.0 (4.8-10.8) X10*3/uL RBC 4.29 (4.20-5.50) X10*6/uL Hgb 12.8 (12.0-16.0) g/dl Hct 36.4 L (37.0-47.0) % MCV 84.8 (80.0-98.0) fL MCH 29.8 (27.0-33.0) pg MCHC 35.2 H (31.0-35.0) g/dl RDW 12.3 (11.0-16.0) % Plt Count 228 (160-400) X10*3/uL MPV 10.7 (9.4-12.3) fL Immature Gran % (Auto) 0.2 (0.0-0.4) % Neut % (Auto) 68.9 (45-73) % Lymph % (Auto) 23.1 (20-40) % [place] % (Auto) 5.9 (2-11) % Eos % (Auto) 1.5 (0-4) % Baso % (Auto) 0.4 (0-2) % Lymph # (Auto) 2.3 (1.2-4.9) X10*3/uL [place] # (Auto) 0.6 (0.1-1.2) X10*3/uL Eos # (Auto) 0.2 (0.0-0.4) X10*3/uL Baso # (Auto) 0.0 (0.0-0.2) X10*3/uL Abs Immat Gran (auto) 0.02 (0.00-0.03) X10*3/uL Absolute Neuts (auto) 6.9 (2.0-8.3) x10*3/uL Absolute Nucleated RBC 0.000 (0.0-0.012) X10*3/uL Nucleated RBC % (auto) 0.0 (0.0-0.2) /100WBC Sodium 136 (135-145) mmol/L Potassium 4.2 (3.3-5.1) mmol/L Chloride 103 (96-108) mmol/L Carbon Dioxide 22 (22-29) mmol/L Anion Gap 15 (12-20) BUN 19 H (9-16) mg/dL Creatinine 1.01 (0.5-1.4) mg/dL Estim Creat Clear Calc 55.8 Estimated GFR 55 POC Glucose 311 H (60-115) mg/dL Random Glucose 337 H (60-115) mg/dL Calcium 9.6 (8.4-10.2) mg/dL Total Bilirubin 0.4 (0.0-1.0) mg/dL AST 39 H (5-31) U/L ALT 71 H (0-31) U/L Alkaline Phosphatase 166 H (39-117) U/L Total Protein 8.5 H (6.5-8.0) g/dL Albumin 4.6 (3.5-5.0) g/dL Discharge Plan Discharge Clinical Impression: Acute hyperglycemia, Musculoskeletal back pain Patient Disposition: Home, Self-Care Instructions: Back Pain (ED), Diabetic Hyperglycemia (ED) Additional Instructions: for the next 24 hours, make sure that you check your glucose every 2-3 hours. You doubled up on a long-acting insulin and it may cause low blood sugar in the next 12 hours. If your glucose is low or you are not feeling well, please make sure that you eat or drink something And rechecked her sugar. If you are unable to eat, please call 911. Please follow-up with your primary care physician tomorrow. If you have any worsening or new symptoms, please return to the emergency room or call 911 Prescriptions: New cyclobenzaprine 5 mg tablet 5 mg PO TID PRN (Reason: muscle spasm) Qty: 10 0RF Invokamet XR 50-500 mg tablet, IR - ER, biphasic 24hr 2 tab PO DAILY Qty: 10 0RF glucagon HCl [Glucagon (HCl) Emergency Kit] 1 mg recon soln 1 mg subcut Q20M PRN (Reason: hypoglycemia) Qty: 1 0RF Rx Instructions: until target blood sugar attained, use only if the patient is altered, unable to eat/drink, or unresponsive No Action (DME) lancets 33 gauge misc See Rx Instructions Not Applicable QID Qty: 100 10RF Rx Instructions: As directed daily (DME) blood-glucose meter [FreeStyle [place] Lite] Kit See Rx Instructions .ROUTE .MEDSUPPLY Qty: 1 0RF Rx Instructions: As directed 3x/day (DME) lancets [FreeStyle Lancets] [facility] See Rx Instructions .ROUTE .MEDSUPPLY Qty: 100 11RF Rx Instructions: Three times a day Repatha SureClick 140 mg/mL pen injector 140 mg subcut Q2W 30 Days Qty: 3 6RF docusate sodium 100 mg capsule 100 mg PO BEDTIME Qty: 90 3RF pantoprazole 40 mg tablet,delayed release (DR/EC) 40 mg PO DAILY Qty: 90 2RF Rx Instructions: take one tablet half an hour before breakfast cyanocobalamin (vitamin B-12) 1,000 mcg tablet, sublingual 1,000 mcg sublingual DAILY 30 Days Qty: 30 6RF sennosides [Natural Senna Laxative] 8.6 mg tablet 8.6 mg PO BEDTIME Qty: 90 3RF simethicone 180 mg capsule 180 mg PO BID PRN (Reason: for cramps) Qty: 60 2RF cholecalciferol (vitamin D3) 25 mcg (1,000 unit) capsule 25 mcg PO DAILY 30 Days Qty: 30 6RF (DME) pen needle, diabetic 32 gauge x 5/32 needle See Rx Instructions .ROUTE DIRECTED Qty: 100 6RF Rx Instructions: daily (DME) FreeStyle Lite Strips Strip See Rx Instructions .ROUTE .MEDSUPPLY Qty: 100 11RF Rx Instructions: use 1 strip once a day (DME) blood-glucose meter [Accu-Chek Guide Glucose Meter[place] [facility] Rx Instructions .Route Qty: 1 0RF Rx Instructions: As directed (DME) Accu-Chek Guide test strips Strip See Rx Instructions .Route Qty: 100 3RF Rx Instructions: Use 1 test trip once a day (DME) lancets [Accu-Chek Softclix Lancets[place] [facility] Rx Instructions .Route Qty: 100 3RF Rx Instructions: Use 1 lancet once a day ezetimibe 10 mg tablet 10 mg PO DAILY 90 Days Qty: 90 1RF aspirin 81 mg tablet,delayed release (DR/EC) 81 mg PO DAILY 90 Days Qty: 90 1RF losartan 25 mg tablet 25 mg PO DAILY 90 Days Qty: 90 1RF metoprolol succinate 25 mg tablet extended release 24 hr 25 mg PO DAILY 90 Days Qty: 90 1RF ticagrelor [Brilinta] 90 mg tablet 90 mg PO BID 90 Days Qty: 180 3RF atorvastatin 80 mg tablet 80 mg PO BEDTIME 90 Days Qty: 90 1RF Trulicity 4.5 mg/0.5 mL pen injector 4.5 mg subcut QWEEK Qty: 2 1RF Invokamet XR 50-500 mg tablet, IR - ER, biphasic 24hr 2 tab PO DAILY 30 Days Qty: 60 6RF diazepam 2 mg tablet 2 mg PO BEDTIME PRN (Reason: muscle pain) Qty: 3 0RF ketorolac 10 mg tablet 10 mg PO TID PRN (Reason: pain) Qty: 7 0RF Rx Instructions: Do not use this medication with ibuprofen, only Tylenol if needed acetaminophen [Tylenol Extra Strength] 500 mg tablet 500 mg PO Q6H PRN (Reason: fever or pain) Qty: 14 0RF lidocaine [Lidoderm] 5 % adhesive patch,medicated 1 patch topical DAILY MDD remove after 12 hours PRN (Reason: pain) Qty: 30 0RF Rx Instructions: leave on most painful area for up to 12 hrs naproxen 500 mg tablet 500 mg PO BID PRN (Reason: pain) 10 Days Qty: 20 0RF cyclobenzaprine 5 mg tablet 5 mg PO Q8H PRN (Reason: pain (scale score 7-10)) 5 Days Qty: 14 0RF ropinirole 0.25 mg tablet 0.25 mg PO BEDTIME Qty: 30 0RF Rx Instructions: administer 1-3 hours before bedtime (DME) FreeStyle Precision Jarod Strips Strip See Rx Instructions .ROUTE .MEDSUPPLY Qty: 100 11RF Rx Instructions: As directed three times a day insulin glargine U-300 conc 300 unit/mL (1.5 mL) insulin pen 55 unit subcut QAM 90 Days Qty: 16.497 6RF fenofibrate 54 mg tablet 54 mg PO DAILY 90 Days Qty: 90 2RF sucralfate 1 gram tablet 1 g PO BEDTIME Qty: 30 4RF Print Language: Congolese
[2025-04-13 21:47] VITALS: BP 131/71; PULSE 82; RESP 18; TEMP 36.8; O2SAT 96
== END 2025-04-13 21:48 | disposition home or self-care (01) ==
PROVIDERS: Emergency Provider Emergency Medicine
DX: M79.18 Myalgia, other site (principal); E11.65 Type 2 diabetes mellitus with hyperglycemia; M54.50 Low back pain, unspecified; Z79.4 Long term (current) use of insulin
CPT/HCPCS: 36415; 80053; 82947; 85025; 99283; 99284

== ENCOUNTER 2025-04-16 08:35 | Outpatient (REF) | payer OTHER, SELFPAY ==
--- OUTSIDE RECORDS SUMMARY | 2025-04-16 09:02 | XMS_ITS | Clinical Summary ---
Author Organization [facility] Address [address] [place] [address] Care Team Providers Care Paratransit Operator Name Role Phone Unavailable Primary Care [...]
--- OUTSIDE RECORDS SUMMARY | 2025-04-16 09:02 | XMS_ITS | Clinical Summary ---
Author Organization [facility] Address [address] [place] [phone] Phone Care Team Providers Care Parts Runner Name Role Phone Meg Penn MD Primary [...] topic Medical Devices Not on file Insurance Guesty O Guesty [employer] Guesty O Guesty O Guesty O Guesty O Guesty O Guesty O Guesty O Care Teams Parts Runner Relationship Specialty Start Date End Date Meg Penn MD [address] [place] [address] PCP - General 03/02/17 Additional Source Comments The information contained in this document represents components of the legal health record. It is not the complete legal health record.[facility]
[2025-04-16 10:35] LABS: Alanine Aminotransferase 73 U/L (0-31); Albumin Level 4.6 g/dL (3.5-5.0); Alkaline Phosphatase 113 U/L (39-117); Anion Gap 14 (12-20); Aspartate Amino Transferase 50 U/L (5-31); Blood Urea Nitrogen 19 mg/dL (9-16); Calcium 9.9 mg/dL (8.4-10.2); Carbon Dioxide 25 mmol/L (22-29); Chloride 105 mmol/L (96-108); Cholesterol 245 mg/dL (<200); Estimated Glomerular Filt Rate > 60; HDL Cholesterol 39 mg/dL (>40); Potassium 4.1 mmol/L (3.3-5.1); Sodium 140 mmol/L (135-145); Total Protein 8.8 g/dL (6.5-8.0); Triglycerides 205 mg/dL (<150)
[2025-04-16 10:56] LABS: Folate 14.9 ng/mL (> or = 4.0); Vitamin B12 405 pg/mL (200-900)
[2025-04-16 11:30] LABS: Microalbum/Creatinine Ratio Ur 13.3 ug/mg cr (<30)
== END 2025-04-16 08:36 | disposition home or self-care (01) ==
LOC: HO.LAB 08:35
PROVIDERS: PCP Internal Medicine; Visit Provider Internal Medicine
DX: E53.8 Deficiency of other specified B group vitamins (principal); E78.019 Familial hypercholesterolemia, unspecified; E55.9 Vitamin D deficiency, unspecified; R80.9 Proteinuria, unspecified
CPT/HCPCS: 36415; 80053; 80061; 82043; 82172; 82306; 82570; 82607; 82746; 83695; 83698

== ENCOUNTER 2025-04-19 14:21 | Outpatient (AMB) | payer MEDICARE, MEDICAID, SELFPAY ==
[2025-04-19 14:25] VITALS: BP 118/80; PULSE 90; TEMP 36.1; O2SAT 98; BMI 26.5
--- NOTE | 2025-04-19 14:25 | A.OFFPC_ITS ---
Vital Signs 04/19/25 14:25 Height 5 ft 5 in Weight 159 lb BMI 26.5 BP 118/80 Blood Pressure Location Lt brachial Position Sitting Pulse 90 Pulse Source Pulse Oximeter Temp 96.9 F Temp Source Temporal Artery Scan Pulse Oximetry (%) 98 Oxygen Delivery Method Room Air Intake Visit Reasons: dm Family Psychologist Required: No Accompanied by: Self / Same As Patient Allergies No Known Allergies (No Known Allergies*) Allergy (Verified 04/19/25 14:47) Medication List - Last Reconciled 04/19/25 by Meg Faustin MD acetaminophen (Tylenol Extra Strength) 500 mg PO Q6H PRN aspirin 81 mg PO DAILY 90 days atorvastatin 80 mg PO BEDTIME 90 days blood sugar diagnostic (FreeStyle Precision Jarod Strips) As directed three times a day blood sugar diagnostic (FreeStyle Lite Strips) use 1 strip once a day blood sugar diagnostic (Accu-Chek Guide test strips) Use 1 test trip once a day blood-glucose meter (FreeStyle [place] Lite kit) As directed 3x/day blood-glucose meter (Accu-Chek Guide Glucose Meter) As directed canagliflozin-metformin 50-500 mg ER (Invokamet XR) 2 tabs (2 x 50-500 mg) PO DAILY canagliflozin-metformin 50-500 mg ER (Invokamet XR) 2 tabs (2 x 50-500 mg) PO DAILY 30 days cholecalciferol (vitamin D3) 25 mcg PO DAILY 30 days cyanocobalamin (vitamin B-12) 1,000 mcg sublingual DAILY 30 days cyclobenzaprine 5 mg PO TID PRN dapaglifloz propaned-metformin 10-1,000 mg ER (Xigduo XR) 1 tab PO DAILY 5 days diazepam 2 mg PO BEDTIME PRN docusate sodium 100 mg PO BEDTIME dulaglutide (Trulicity) 4.5 mg (0.5 mL) subcut QWEEK evolocumab (Repatha SureClick) 140 mg subcut Q2W 30 days ezetimibe 10 mg PO DAILY 90 days fenofibrate 54 mg PO DAILY 90 days glucagon HCl (Glucagon (HCl) Emergency Kit) 1 mg subcut Q20M PRN insulin glargine U-300 conc 55 units (0.1833 mL) subcut QAM 90 days ketorolac 10 mg PO TID PRN lancets As directed daily lancets (FreeStyle Lancets) Three times a day lancets (Accu-Chek Softclix Lancets) Use 1 lancet once a day lidocaine 5% (Lidoderm) 1 patch topical DAILY PRN MDD remove after 12 hours losartan 25 mg PO DAILY 90 days metoprolol succinate ER 25 mg PO DAILY 90 days naproxen 500 mg PO BID PRN 10 days pantoprazole 40 mg PO DAILY pen needle, diabetic daily ropinirole 0.25 mg PO BEDTIME sennosides (Natural Senna Laxative) 8.6 mg PO BEDTIME simethicone 180 mg PO BID PRN sucralfate 1 g PO BEDTIME ticagrelor (Brilinta) 90 mg PO BID 90 days Tobacco use date assessed: 04/19/25 Fall risk assessment: No Falls in past year Last assessed Fall Risk: 04/19/25 Dental Screening Dental Screen Date: 04/19/25 Did you have a dental visit in the last 12 months?: Yes Was dental information given to patient?: Patient has dentist HPI HPI Comments History of Present Illness Details The patient is a 64 year old female presenting for management of chronic conditions including diabetes and hyperlipidemia. The patient reports that her blood sugar is poorly controlled, with a recent reading of 169.6. She has been unable to obtain her prescribed Invokamet, which led to an episode of severe hyperglycemia with a blood sugar of 400, requiring an emergency room visit. In the ER, she was given metformin, and she also takes Trulicity. She missed a previous diabetes appointment because of a scheduling conflict with a cardiology appointment. She has stented coronary artery and this is why she is on Brilinta. The patient has a diagnosis of familial hyperlipidemia and reports her cholester ol is very high. Her medication regimen includes atorvastatin 80 mg and ezetimibe 10 mg. The patient's blood pressure is well-controlled on losartan 25 mg. Her medication list also includes Tylenol, aspirin, pantoprazole for stomach issues at night, ropinirole, and Brilinta. She reports that her constipation has resolved, and she no longer needs medication for it. She has had a prior cardiac evaluation. 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 Mother No problems noted. 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 1. Little interest or pleasure in doing things: several days 2. Feeling down, depressed, or hopeless: several days 3. Trouble falling or staying asleep, or sleeping too much: several days 4. Feeling tired or having little energy: several days 5. Poor appetite or overeating: several days 6. Feeling bad about yourself - or that you are a failure or have let yourself or your family down: several days 7. Trouble concentrating on things, such as reading the newspaper or watching television: several days 8. Moving or speaking so slowly that other people could have noticed. Or the opposite - being so fidgety or restless that you have been moving around a lot more than usual: not at all 9. Thoughts that you would be better off or of hurting yourself in some way: not at all Total score: 7 Depression Screening Interpretation: Positive Depression Screening Follow-up: Existing condition and Follow-up Visit Requested Depression Screening Done: Yes 49039 - PHQ-9 Billing: Yes Source: Developed by Drs. Haris Larose, Andria Alonso, Sav Toribio and colleagues, with an educational andrew from [employer]. Thrive Questionnaire Date Thrive assessed: 04/19/25 I am a: Patient What is your living situation today?: I have a steady place to live Within the past 12 months, did the food you bought not last and you didn't have the money to get more?: I choose not to answer this question Within the past 12 months, did you worry whether your food would run out before you got money to buy more?: I choose not to answer this question Do you have trouble paying for medicines?: No Do you have trouble getting transportation to medical appointments?: No Do you have trouble paying your heating and electricity bill?: No Do you have trouble taking care of your child, family member or friend?: No Do you have trouble with day-to-day activities such as bathing, preparing meals, shopping, managing finances, etc.?: No Are you currently unemployed and looking for a job?: No Are you interested in more education?: Yes Please select the resources that you would like help with: None Currently or been in a relationship where the following occur: I choose not to answer THRIVE Score: 0 AUDIT C Alcohol Use Questionnaire (AUDIT-C) 1. How often do you have a drink containing alcohol?: Never Total Score: 0 Score Reviewed/Action Taken: No JOVANA-7 AMB Questionnaire JOVANA-7 Date JOVANA - 7 assessed: 04/19/25 Feeling nervous, anxious, or on edge: 0 = Not at all Not being able to stop or control worryin = Not at all Worrying too much about different things: 0 = Not at all Trouble relaxin = Not at all Being so restless that it is hard to sit still: 0 = Not at all Becoming easily annoyed or irritable: 0 = Not at all Feeling afraid as if something awful might happen: 0 = Not at all Total JOVANA-7 score (0-4 normal; 5-9 mild; 10-14 moderate; 15-21 severe): 0 Source: Developed by Drs. Haris Larose, Andria Alonso, Sav Toribio and colleagues, with an educational andrew from [employer]. JOVANA-7 Assessment Billing JOVANA-7 Assessment Tool: JOVANA-7 Assessment 04703 Review of Systems Const All systems reviewed & are unremarkable except as noted in HPI and below Card Denies chest pain at rest, Denies chest pain with activity, Denies edema, Denies irregular heart rhythm, Denies claudication, Denies dyspnea, Denies dyspnea on exertion, Denies orthopnea, Denies paroxysmal nocturnal dyspnea and Denies slow heart rate Resp Denies cough, Denies dyspnea and Denies dyspnea on exertion GI Denies abdominal pain, Denies change in bowel habits, Denies excessive flatus, Denies nausea and Denies vomiting Physical exam (Primary Care) Vital Signs: Last Vital Signs Temp 96.9 F 04/19/25 14:25 Pulse 90 04/19/25 14:25 BP 118/80 04/19/25 14:25 Pulse Ox 98 04/19/25 14:25 Oxygen Delivery Method Room Air 04/19/25 14:25 BMI result Body Mass Index 26.5 Tobacco/Smoking Status: Tobacco use Status Tobacco use date assessed 04/19/25 04/19/25 14:26 Patient Tobacco Use Status Never used Tobacco 04/19/25 14:26 e-Cigarette/Vaping Use Never Used 04/19/25 14:26 PHQ-9: PHQ-9 Score PHQ-9: Total score 7 04/19/25 15:00 Depression Screening Interpretation: Positive Depression Screening Follow-up: Existing condition and Follow-up Visit Requested Thrive Assessment: Date of Thrive Assessment Date Thrive assessed 04/19/25 04/19/25 14:26 Currently or been in a relationship where the following occur: I choose not to answer Resp Effort & Inspection: normal respiratory effort Auscultation: clear to auscultation bilaterally Cardio Jugular venous distension: no JVD Rate: regular rate Rhythm: regular rhythm Heart sounds: S1 normal heart sound present and S2 normal heart sound present Extrem General: Yes full ROM Office Procedures Flu Questionnaire Does the patient have a severe egg allergy?: No Does the patient have severe life threatening allergies?: No Does the patient have a fever or illness today?: No Has the patient ever had Guillain-[place] Syndrome?: No Has the patient ever had any past reaction to a flu shot?: No Results AMB Hemoglobin A1c AMB Hemoglobin A1c 9.6 % Last Edit by Georgie Corley CMA on 04/19/25 15:0 0 Immunizations Fluarix [id number] (PF) 45 mcg (15 mcg x 3)/0.5 mL IM syringe Performing Provider: Meg Faustin MD Performing Location: [facility] [place] [facility] Documented (not given) by: Georgie Corley CMA on 04/19/25 14:43 Reason Not Given: Received Previously Results Reviewed Results Reviewed: Laboratory Last Values Hgb A1c (Clinic) 9.6 % (4.0-6.0) H 04/19/25 15:00 Coding Level of Care Code Complex visit Add On G2211 Diagnoses Essential hypertension I10 Hypertension type: essential hypertension Familial hypercholesterolemia E78.01 Type 2 diabetes mellitus with hyperglycemia, with long-term current use of insulin E11.65; Z79.4 Stented coronary artery Z95.5 Additional Codes JOVANA-7 Assessment Billing - JOVANA-7 Assessment Tool: JOVANA-7 Assessment 51199 ([id number]) PHQ-9 - 21575 - PHQ-9 Billing: Yes ([id number]) Time Spent (min) 23 Assessment & Plan Assessment & Plan (1) Hypertension: Code(s): I10 - Essential (primary) hypertension Category: Medical Qualifiers: Hypertension type: essential hypertension Qualified Code(s): I10 - Essential (primary) hypertension (2) Familial hypercholesterolemia: Code(s): E78.01 - Familial hypercholesterolemia Category: Medical (3) Type 2 diabetes mellitus with hyperglycemia, with long-term current use of insulin: Code(s): E11.65 - Type 2 diabetes mellitus with hyperglycemia; Z79.4 - care home (current) use of insulin Category: Medical (4) Stented coronary artery: Comment: November 2024 Code(s): Z95.5 - Presence of coronary angioplasty implant and graft Category: Surgical Plan Plan 1. Diabetes Mellitus, Type 2 The patient's blood sugar is uncontrolled, with a recent reading of 169.6 and an ER visit for hyperglycemia secondary to being unable to fill her Invokamet prescription. A prescription for an alternative medication, which is the same as Invokamet but with a different name, will be sent to the pharmacy. The dose of Trulicity will be increased. 2. Familial Hyperlipidemia The patient has a diagnosis of familial hyperlipidemia with reported elevated cholesterol levels. She will continue atorvastatin 80 mg and ezetimibe 10 mg. Fenofibrate will be discontinued. 3. Hypertension Continue losartan. Blood pressure goal is equal or less than 130/80. 4. Stented coronary artery Continue metoprolol. Continue statins. Continue Brilinta. Follow-up with Cardiology. Orders: Orders Influenza [id number] Immunization Today Z23 - Encounter for immunization Vitamin D 25-OH Total 4 Months E55.9 - Vitamin D deficiency, unspecified Vitamin B12 and Folate 4 Months E53.8 - Deficiency of other specified B group vitamins Comprehensive Bells. Panel Fast 4 Months E11.65 - Type 2 diabetes mellitus with hyperglycemia, Z79.4 - care home (current) use of insulin AMB Hemoglobin A1c Today Z13.9 - Encounter for screening, unspecified Lipid Panel 4 Months E78.5 - Hyperlipidemia, unspecified Microalbumin, Random (w Creat) 4 Months R80.9 - Proteinuria, unspecified Medications: Changed From dapaglifloz propaned-metformin 10-1,000 mg ER (Xigduo XR) 1 tab PO DAILY 5 days 5 ea 0RF To dapaglifloz propaned-metformin 10-1,000 mg ER (Xigduo XR) 1 tab PO DAILY 90 ea 1RF 90 days Refilled canagliflozin-metformin 50-500 mg ER (Invokamet XR) 2 tabs (2 x 50-500 mg) PO DAILY 60 ea 6RF 30 days E11.9 - Type 2 diabetes mellitus without complications Discontinued canagliflozin-metformin 50-500 mg ER (Invokamet XR) Discontinued Reason: Patient Completed Course 2 tabs (2 x 50-500 mg) PO DAILY 10 ea 0RF docusate sodium Discontinued Reason: Patient Completed Course 100 mg PO BEDTIME 90 caps 3RF K59.00 - Constipation, unspecified fenofibrate Discontinued Reason: Patient Completed Course 54 mg PO DAILY 90 days 90 tabs 2RF E78.2 - Mixed hyperlipidemia sennosides (Natural Senna Laxative) Discontinued Reason: Patient Completed Course 8.6 mg PO BEDTIME 90 tabs 3RF constipation K59.00 - Constipation, unspecified
== END 2025-04-19 15:07 | disposition home or self-care (01) ==
LOC: HO.HMCH 14:22
PROVIDERS: PCP Internal Medicine; Visit Provider Internal Medicine
DX: I10 Essential (primary) hypertension (principal); E78.019 Familial hypercholesterolemia, unspecified; E11.65 Type 2 diabetes mellitus with hyperglycemia; Z79.4 Long term (current) use of insulin; Z95.5 Presence of coronary angioplasty implant and graft; Z23 Encounter for immunization; Z13.9 Encounter for screening, unspecified

== ENCOUNTER → 2025-04-19 14:21 | Outpatient (BNVA) | payer OTHER, SELFPAY | PROVIDERS: PCP Internal Medicine; Visit Provider Internal Medicine | DX: I10 Essential (primary) hypertension (principal); E78.019 Familial hypercholesterolemia, unspecified; E11.65 Type 2 diabetes mellitus with hyperglycemia; Z79.4 Long term (current) use of insulin; Z95.5 Presence of coronary angioplasty implant and graft; E55.9 Vitamin D deficiency, unspecified; R80.9 Proteinuria, unspecified; Z13.31 Encounter for screening for depression; Z13.39 Encounter for screening examination for other mental health and behavioral disorders | CPT/HCPCS: 83036; 90471; 96127; 99212 ==